=== PATIENT | female | born 1945 | race Caucasian/White ===

== ENCOUNTER 2017-07-06 17:38 | Emergency (ER) | payer MEDICARE, OTHER ==
[~2017-07-06] VITALS: Ht 170.2 cm; Wt 73.0 kg
[~2017-07-06 17:38] MED LIST: ASPI81TA82 PO; ATEN-100 PO; BUPR150T3 PO; CALC500T35 PO; DAPA1TAB2 PO; DRIS50002 PO; GABA300C3 PO; GLIM4 PO; LOSA25 PO; LYRI150C PO; METF500 PO; MIRA25TA PO; PRAV80 PO; ROPI1TAB72 PO
[2017-07-06 17:43] VITALS: BP 161/108; PULSE 80; RESP 18; TEMP 99.1; O2SAT 97
[2017-07-06 17:48] VITALS: BP 161/108; PULSE 75; RESP 18; O2SAT 97
--- NOTE | 2017-07-06 17:49 | PD ---
HPI Chief Complaint: Fall Time Seen by Provider: 17:48 Travel History International Travel<30 days: No Contact w/Intl Traveler<30days: No Traveled to known affect area: No History of Present Illness HPI 71-year-old female presents to the emergency department via EMS with complaint of left hip pain and coccyx pain after tripping on carpet and falling and landing to her left side. Declined the backboard for EMS. Denies hitting her head or loss of consciousness. Denies neck pain Denies anticoagulants therapy. Has history of coccyx pain but says the pain is worse. Denies landing on her butt. Has history of peripheral neuropathy and denies change in paresthesias. Denies chest pain, shortness of breath, abdominal pain, vomiting. Denies encopresis, incontinence, saddle anesthesias. Denies decreased range of motion, decreased strength to bilateral lower extremities. Left hip pain is worse with abduction. Low back pain is worse on palpation. Has not taken any medications to alleviate her symptoms. Rates pain 6/10. Describes as an aching sensation. Worse with movement. Better while at rest. History of hypertension, diabetes mellitus, peripheral neuropathy, restless leg syndrome. Primary care provider is Dr. Gutierrez. Allergies to latex and phenobarbital. Has no medical complaints. No other modifying factors or associated signs and symptoms. PFSH Past Medical History Arthritis: Yes Blood Disorders: No Anxiety: Yes Depression: Yes Cancer: No Cardiovascular Problems: Yes High Cholesterol: Yes Diabetes: Yes Patient Takes Glucophage: Yes Diminished Hearing: No Endocrine: Yes Gastrointestinal Disorders: Yes GERD: Yes Genitourinary: No Hypertension: Yes Immune Disorder: No Implanted Vascular Access Dvce: Yes Musculoskeletal: Yes Neurologic: No Psychiatric: Yes Reproductive: No Respiratory: Yes Sleep Apnea: Yes Tubal Ligation: Yes Past Surgical History Abdominal Surgery: Yes (gastric bypass) Appendectomy: Yes Body Medical Devices: stents in the left leg Cardiac Surgery: Yes (FEM/POP BY PASS- LEFT- 2001) Cholecystectomy: Yes Genitourinary Surgery: No Gynecologic Surgery: Yes (tubaligation hysterectomy) Hysterectomy: Yes Joint Replacement: No Pacemaker: No Thoracic Surgery: Yes (GALLBLADDER) Social History Alcohol Use: No Tobacco Use: No Substance Use: No Allergies-Medications (Allergen,Severity, Reaction): Coded Allergies: latex (Unverified Allergy, Severe, 02/25/17) phenobarbital (Unverified Allergy, Severe, Dizziness, 02/25/17) Reported Meds & Prescriptions Reported Meds & Active Scripts Active Walker/Adult/Folding (Device) 1 Mis Mis Ea .ROUTE DIRECTED Ibuprofen 600 Mg Tab 600 Mg PO Q6H PRN Reported Calcium (Oyster Shell) 500 Mg Tab 500 Mg PO BID Drisdol (Ergocalciferol) 50,000 Unt Cap 50,000 Units PO WEEKLY Aspir-81 (Aspirin) 81 Mg Tab 81 Mg PO HS Lyrica (Pregabalin) 150 Mg Cap 150 Mg PO BID Gabapentin 300 Mg Cap 300 Mg PO DAILY@1200 Myrbetriq (Mirabegron) 25 Mg Tab 25 Mg PO DAILY Atenolol 25 Mg Tab 25 Mg PO DAILY Requip 1 mg (Ropinirole HCl) 1 Mg Tab 2 Mg PO HS Requip 1 mg (Ropinirole HCl) 1 Mg Tab 1 Mg PO BID GIVEN AT 1200 & 1800 Bupropion Hcl Xl (Bupropion HCl) 150 Mg Tab 150 Mg PO DAILY Pravastatin Sodium (Pravastatin Sod) 80 Mg Tab 80 Mg PO HS Losartan Potassium 25 Mg Tab 25 Mg PO DAILY Farxiga (Dapagliflozin Propanediol) 10 Mg Tab 10 Mg PO DAILY Amaryl 4 Mg Tab (Glimepiride) 4 Mg Tab 8 Mg PO DAILYAC Take 30 minutes prior to a meal Glucophage 500 mg (Metformin HCl) 500 Mg Tab 1,000 Mg PO BIDAC Review of Systems Except as stated in HPI: all other systems reviewed are Neg Physical Exam Narrative GENERAL: Well-nourished, well-developed female patient, in no acute distress; afebrile, nontoxic-appearing SKIN: Warm and dry. HEAD: Atraumatic. Normocephalic. EYES: Pupils equal and round. No scleral icterus. No injection or drainage. ENT: Mucosa pink and moist. Airway patent. NECK: Moving freely. No midline tenderness on patient of the cervical spine. Active rotation greater than 45 to the left and right. Trachea midline. CARDIOVASCULAR: Regular rate and rhythm. No murmur appreciated. RESPIRATORY: No accessory muscle use. Lungs sounds clear and equal bilaterally. GASTROINTESTINAL: Abdomen soft, non-tender, nondistended. Positive bowel sounds. No hepato-splenomegaly, or palpable masses. No guarding. BACK: Tenderness on palpation to the coccyx area; without erythema, edema, ecchymosis. No midline tenderness on palpation of the lumbar, thoracic, cervical spine. MUSCULOSKELETAL: Left hip with full range of motion; without erythema, edema, or ecchymosis; with tenderness on abduction; tenderness on palpation to the lateral aspect; no obvious deformity; no leg length discrepancy. Left lower extremity is supple and non-tense with 2+ pedal pulse and sensory intact and without erythema or edema. No obvious deformity. No cyanosis. No edema. NEUROLOGICAL: Awake and alert. Oriented 3. No obvious cranial nerve deficits. Motor grossly within normal limits. Normal speech. PSYCHIATRIC: Appropriate mood and affect; insight and judgment normal. Data Data Last Documented VS Vital Signs Date Time Temp Pulse Resp B/P (MAP) Pulse Ox O2 Delivery O2 Flow Rate FiO2 07/06/17 19:50 80 20 147/79 (101) 96 07/06/17 17:48 Room Air 07/06/17 17:43 99.1 Orders Orders Ibuprofen (Motrin) (07/06/17 18:00) Hip, Uni(Ap&Lat) W Ap Pelvis (07/06/17 17:49) Sacrum And Coccyx (07/06/17 ) Ed Discharge Order (07/06/17 19:12) MDM Medical Decision Making Medical Screen Exam Complete: Yes Emergency Medical Condition: Yes Medical Record Reviewed: Yes Differential Diagnosis fall, Hip contusion, hip fracture, acute exacerbation of chronic coccyx pain, coccyx fracture, coccydynia Narrative Course 71-year-old female with coccyx pain and left hip pain after a mechanical fall. Arrives via EMS. Declined backboard. Coccyx and sacrum x-ray, and left hip with AP pelvis x-ray ordered. Ibuprofen ordered. 1903: Left hip with AP pelvis and coccyx x-ray concluded: Hip and Pelvis X-Ray 07/06/17 1749 Signed Impressions: Service Date/Time: Thursday, July 06, 2017 18:07 - CONCLUSION: No evidence of fracture. Lance Dill MD Sacrum and Coccyx X-Ray 07/06/17 0000 Signed Impressions: Service Date/Time: Thursday, July 06, 2017 18:07 - CONCLUSION: No evidence of fracture. Lance Dill MD X-ray findings discussed with patient. Patient was ambulated prior to discharge and ambulated well. Ibuprofen and walker prescribed for home. Instructed patient to follow up with primary care provider. Patient verbalizes understanding and agreement with treatment plan. Patient is medically cleared and stable for discharge. Discussed reasons to return to the emergency department. Patient agrees with treatment plan. The patients vital signs are stable and the patient is stable for outpatient follow-up and treatment. Patient discharged home, stable and in no acute distress. Diagnosis Primary Impression: Fall Qualified Codes: W19.XXXA - Unspecified fall, initial encounter Additional Impressions: Contusion of left hip Qualified Codes: S70.02XA - Contusion of left hip, initial encounter Coccyx pain Referrals: [facility] Primary Care Physician Patient Instructions: Coccyx Injury (ED), Fall Prevention (ED), General Instructions, Hip Contusion (ED) Additional Instructions: Tylenol or ibuprofen as directed and as needed for pain and inflammation Walker as needed for support Avoid aggravating activity; increase activity as tolerated Follow-up with primary care provider Return to the emergency department immediately with worsening of symptoms Med/Other Pt SpecificInfo: Prescription(s) given Scripts Walker/Adult/Folding (Walker/Adult/Folding) 1 Mis Mis EA .ROUTE DIRECTED, #1 0 Refills Prov: Bonita Garrett 07/06/17 Ibuprofen (Ibuprofen) 600 Mg Tab 600 MG PO Q6H Y for PAIN, #20 TAB 0 Refills Prov: Boniat Garrett 07/06/17 Disposition: 01 DISCHARGE HOME Condition: Stable Bonita Garrett Jul 06, 2017 17:49
[2017-07-06] MEDS ORDERED: IBUPROFEN 600 MG TAB PO ONE (18:00)
--- NOTE | 2017-07-06 18:51 | RADRPT ---
EXAM DATE/TIME: 07/06/2017 18:07 [facility] COMPARISON: No previous studies available for comparison. INDICATIONS : Left flank and low back pain post fall. MEDICAL HISTORY : Cardiovascular disease. SURGICAL HISTORY : Cholecystectomy. Left iliac stent ENCOUNTER: Initial ACUITY: 1 day PAIN SCORE: 8/10 LOCATION: Left flank low back FINDINGS: 3 views of the left upper pelvis. Femoral artery stents are seen on the left. No evidence of fracture . Alignment within normal limits. No joint narrowing. CONCLUSION: No evidence of fracture. Lance Dill MD on July 06, 2017 at 18:48 Board Certified Radiologist. This report was verified electronically.
--- NOTE | 2017-07-06 18:52 | RADRPT ---
EXAM DATE/TIME: 07/06/2017 18:07 [facility] COMPARISON: No previous studies available for comparison. INDICATIONS : Left flank and low back pain post fall. MEDICAL HISTORY : Cardiovascular disease. SURGICAL HISTORY : Cholecystectomy. Left iliac stent ENCOUNTER: Initial ACUITY: 1 day PAIN SCORE: 8/10 LOCATION: Bilateral low back FINDINGS: 3 views of the sacrum. Bone alignment within normal limits. No evidence of fracture. CONCLUSION: No evidence of fracture. Lance Dill MD on July 06, 2017 at 18:50 Board Certified Radiologist. This report was verified electronically.
[2017-07-06] MEDS ORDERED: IBUP-232 PO (19:06)
[2017-07-06] MEDS ORDERED: WALKER/ADULT/FO1 MIS (19:11)
[2017-07-06 19:50] VITALS: BP 147/79
== END 2017-07-06 20:20 | disposition home or self-care (01) ==
LOC: NEPC 17:38
DX: S70.02XA Contusion of left hip, initial encounter (principal); M53.3 Sacrococcygeal disorders, not elsewhere classified; E11.9 Type 2 diabetes mellitus without complications; E78.00 Pure hypercholesterolemia, unspecified; I10 Essential (primary) hypertension; W01.0XXA Fall on same level from slipping, tripping and stumbling without subsequent striking against object, initial encounter; Z79.84 Long term (current) use of oral hypoglycemic drugs
CPT/HCPCS: 72220; 73502; 99283

== ENCOUNTER 2018-02-28 18:03 | Inpatient (IN) ==
[2018-02-28] MEDS ORDERED: Sodium Chlor 0.9% Inj 500 ML IV.SIG ONE (19:21)
[2018-02-28 19:46] LABS: Baso % (Auto) 0.3 % (0.0-2.0); Hematocrit 39.8 % (35.0-46.0); Hemoglobin 13.5 gm/dL (11.6-15.3); Lymph # (Auto) 0.7 th/mm3 (1.0-4.8); Lymph % (Auto) 6.8 % (9.0-44.0); Mean Corpuscular HGB Conc 34.1 % (32.0-36.0); Mean Platelet Volume 8.6 fL (7.0-11.0); Mono # (Auto) 0.7 th/mm3 (0.0-0.9); Mono % (Auto) 6.5 % (0.0-8.0); Neut # (Auto) 8.8 th/mm3 (1.8-7.7); Neut % (Auto) 86.4 % (16.0-70.0); Platelet Count 224 th/mm3 (150-450); Red Blood Count 4.37 mil/mm3 (4.00-5.30); Red Cell Distribution Width 13.3 % (11.6-17.2); White Blood Count 10.2 th/mm3 (4.0-11.0)
[2018-02-28 19:56] LABS: Prothrombin Time 10.3 sec (9.8-11.6)
[2018-02-28 19:57] LABS: Albumin 3.3 g/dL (3.4-5.0); Anion Gap 13 meq/L (5-15); Aspartate Aminotransferase 24 U/L (15-37); Blood Urea Nitrogen 17 mg/dL (7-18); Calcium 8.8 mg/dL (8.5-10.1); Carbon Dioxide 25.5 meq/L (21.0-32.0); Chloride 94 meq/L (98-107); Glomerular Filtration Rate 37 mL/min (>89); Glucose,Random 188 mg/dL (74-106); Potassium 4.3 meq/L (3.5-5.1); Sodium 132 meq/L (136-145)
--- NOTE | 2018-02-28 20:02 | XR ---
EXAM DATE: 02/28/2018 7:49 PM EDT AGE/SEX: 72 years / Female INDICATIONS: Fever. Back pain. CLINICAL DATA: This is the patient's initial encounter. Patient reports that signs and symptoms have been present for 1 day and indicates a pain score of 4/10. MEDICAL/SURGICAL HISTORY: . Cardiovascular disease. . Cholecystectomy. Left iliac stent COMPARISON: [facility] [place] SING[place] AP, 10/20/2015. . FINDINGS: A single AP view of the chest demonstrates the lungs to be symmetrically aerated without evidence of mass, infiltrate or effusion. The cardiomediastinal contours are unremarkable. Osseous structures a re intact. CONCLUSION: Lungs are clear. Electronically signed by: Nelson Hernandez MD 02/28/2018 8:00 PM EDT
[2018-02-28 20:03] LABS: Alanine Aminotransferase 21 U/L (10-53); Alkaline Phosphatase 72 U/L (45-117); Total Protein 7.8 g/dL (6.4-8.2)
--- NOTE | 2018-02-28 20:37 | CT ---
EXAM DATE: 02/28/2018 8:24 PM EDT AGE/SEX: 72 years / Female INDICATIONS: Altered mental status. Found on floor. CLINICAL DATA: This is the patient's initial encounter. Patient reports that signs and symptoms have been present for 1 day and indicates a pain score of 0/10. MEDICAL/SURGICAL HISTORY: Hypertension. Deep venous thrombosis. None. RADIATION DOSE: 64.48 CTDI (mGy) ;Tabletop exam COMPARISON: [facility] [place] 10/20/2015. . TECHNIQUE: CT of the head without contrast. Using automated exposure control and adjustment of the mA and/or kV according to patient size, radiation dose was kept as low as reasonably achievable to ob tain optimal diagnostic quality images. DICOM format image data is available electronically for revi ew and comparison. FINDINGS: Cerebrum: The ventricles are normal for age. No evidence of midline shift, mass lesion, hemorrhage or acute infarction. No extraaxial fluid collections are seen. Posterior Fossa: The cerebellum and brainstem are intact. The 4th ventricle is midline. The cerebe llopontine angle is unremarkable. Extracranial: The visualized portion of the orbits is intact. Skull: The calvaria is intact. No evidence of skull fracture. CONCLUSION: 1. No acute findings in the brain. . Electronically signed by: Nelson Hernandez MD 02/28/2018 8:36 PM EDT
[2018-02-28 20:38] LABS: Bilirubin,Urine Negative (Negative); Clarity,Urine Hazy (Clear); Color,Urine Yellow (Yellw/Straw); Glucose,Urine (UA) Negative (Negative); Leukocyte Esterase,Urine Negative (Negative); Nitrite,Urine Negative (Negative); Specific Gravity,Urine 1.013 (1.002-1.035); Squamous Epithelial Cell,Urine 3 /hpf (0-5)
--- NOTE | 2018-02-28 21:00 | ED ---
HPI General Chief complaint: Fall Stated complaint: neck,back pain Time Seen by Provider: 02/28/18 19:06 History of Present Illness HPI narrative: Patient presents to the emergency department with her daughter. Daughter states that her mother lives alone and she went by the house to check on her and found her in the ground in the hallway on the floor. Patient states she cannot recall how she got on the floor but she thinks she slipped and fell. She is not on any blood thinners. Event happened approximately 430 5:00 this evening. Patient complains complains of right flank pain radiating to the suprapubic area, 5 out of 10, intermittent, aggravated by exertion, alleviated by rest. Denies dysuria hematuria but she does have a history of UTIs. She denies fever, nausea, vomiting, diarrhea, chest pain, shortness of breath, cough , headache, vision change, numbness, tingling, or chills. Related Data Home Medications Medication Instructions Recorded Confirmed escitalopram oxalate [Lexapro] 20 mg PO DAILY 02/28/18 02/28/18 losartan 25 mg PO DAILY 02/28/18 02/28/18 metformin 1,000 mg PO BID 02/28/18 02/28/18 metoprolol succinate 25 mg PO DAILY 02/28/18 02/28/18 nortriptyline 50 mg PO HS 02/28/18 02/28/18 omeprazole 40 mg PO DAILY 02/28/18 02/28/18 pravastatin 40 mg PO DAILY 02/28/18 02/28/18 pregabalin [Lyrica] 25 mg PO TID 02/28/18 02/28/18 ropinirole 0.25 mg PO 5 TIMES A DAY 02/28/18 02/28/18 sertraline 50 mg PO DAILY 02/28/18 02/28/18 trazodone 50 mg PO DAILY 02/28/18 02/28/18 Allergies Allergy/AdvReac Type Severity Reaction Status Date / Time latex Allergy Severe Rash Verified 02/28/18 19:51 phenobarbital Allergy Severe Dizziness Verified 02/28/18 19:51 Review of Systems ROS: all other systems reviewed are negative [facility] Medical History Medical History DVT (deep venous thrombosis) (Acute) HTN (hypertension) (Acute) Surgical history unknown (Acute) UTI (urinary tract infection) (Acute) Social History Social History Substance History: No History of Abuse Second Hand Smoke Exposure: No Smoking Status: Never smoker How Often Do You Have a Drink Containing Alcohol: Monthly or less Recent Travel in [facility] within the Last 8 Weeks: No Recent Out of Country Travel within the Last 8 Weeks: No Immunization History Tetanus Immunization: >5 Years Hx Influenza Vaccine This Season: No Exam Narrative Exam Narrative: GENERAL: No acute distress. SKIN: Focused skin assessment warm/dry. HEAD: Atraumatic. Normocephalic. EYES: Pupils equal and round. No scleral icterus. No injection or drainage. ENT: No nasal bleeding or discharge. Mucous membranes pink and moist. NECK: Trachea midline. No JVD. CARDIOVASCULAR: Tachycardic. + murmur appreciated. RESPIRATORY: No accessory muscle use. Clear to auscultation. Breath sounds equal bilaterally. GASTROINTESTINAL: Abdomen soft, left lower quadrant tenderness, nondistended. Right CVA tenderness. MUSCULOSKELETAL: No obvious deformities. No clubbing. No cyanosis. No edema. NEUROLOGICAL: Awake and alert. No obvious cranial nerve deficits. Motor grossly within normal limits. Normal speech. PSYCHIATRIC: Appropriate mood and affect; insight and judgment normal. Course Initial Documented Vital Signs Temperature 102.7 F H 02/28/18 18:37 Pulse Rate 112 H 02/28/18 18:37 Respiratory Rate 20 02/28/18 18:37 Blood Pressure 127/58 L 02/28/18 18:37 Pulse Oximetry 96 02/28/18 18:37 Last Documented Vital Signs Temperature 99.4 F 02/28/18 19:11 Pulse Rate 103 H 02/28/18 23:58 Respiratory Rate 16 02/28/18 23:50 Blood Pressure 169/71 H 02/28/18 23:50 Pulse Oximetry 93 L 02/28/18 23:50 Medical Decision Making [facility] Narrative Medical decision making narrative: Patient presents to the emergency department status post fall in complaining of right flank pain. Patient placed on machine stamper, continuous pulse ox, and IV access obtained. CT scans, chest x-ray, EKG, and labs ordered. Patient also given 500 cc IV normal saline bolus. Of note patient was febrile in triage; however, she was not febrile once in the emergency department. Labs: Elevated creatinine and glucose. CT: CONCLUSION:1. Obstructive uropathy on the right side due to a 6 mm calcified stone in the proximal right ureter. Chest x-ray and head CT no acute findings. 2299: Admit MD at bedside. Daughter states patient's mental status and speech have been changing since about 7/7:30 PM. Stroke scale score 10. Stroke alert neurologist called. Family advised that she had slurred speech when she found her; tehrefore, out of window for tPA. Per Dr Silva recommendation, will get MRI brain without, MRA head and neck, admit MD in ER and will order it STAT and f/u results. 2135: Dr Varela: Cefepime 2 grams IV q 12hrs, place formal consult, will see how she does overnight Medical Screen Exam Complete: Yes Emergency Medical Condition: Yes Differential Diagnosis Differential Diagnosis: Pyelonephritis, sepsis, ICH, CVA, TIA, diverticulitis Lab Data Result diagrams: 02/28/18 19:30 02/28/18 19:30 Lab Results 02/28/18 02/28/18 02/28/18 Range/Units 19:30 19:30 19:30 WBC (4.0-11.0) th/mm3 RBC (4.00-5.30) mil/mm3 Hgb (11.6-15.3) gm/dL Hct (35.0-46.0) % MCV (80.0-100.0) fL MCH (27.0-34.0) pg MCHC (32.0-36.0) % RDW (11.6-17.2) % Plt Count (150-450) th/mm3 MPV (7.0-11.0) fL Neut % (Auto) (16.0-70.0) % Lymph % (Auto) (9.0-44.0) % [place] % (Auto) (0.0-8.0) % Eos % (Auto) (0.0-4.0) % Baso % (Auto) (0.0-2.0) % Neut # (Auto) (1.8-7.7) th/mm3 Lymph # (Auto) (1.0-4.8) th/mm3 [place] # (Auto) (0.0-0.9) th/mm3 Eos # (Auto) (0.0-0.4) th/mm3 Baso # (Auto) (0.0-0.2) th/mm3 WBC Differential Differential Comment PT 10.3 (9.8-11.6) sec INR 1.0 Ratio APTT (24.3-30.1) sec Sodium 132 L (136-145) meq/L Potassium 4.3 (3.5-5.1) meq/L Chloride 94 L (98-107) meq/L Carbon Dioxide 25.5 (21.0-32.0) meq/L Anion Gap 13 (5-15) meq/L BUN 17 (7-18) mg/dL Creatinine 1.40 H (0.50-1.00) mg/dL Estimated GFR 37 L (>89) mL/min Random Glucose 188 H (74-106) mg/dL Lactic Acid 1.9 (0.4-2.0) mmol/L Calcium 8.8 (8.5-10.1) mg/dL Magnesium (1.5-2.5) mg/dL Total Bilirubin 0.6 (0.2-1.0) mg/dL AST 24 (15-37) U/L ALT 21 (10-53) U/L Alkaline Phosphatase 72 (45-117) U/L Total Creatine Kinase (26-192) U/L CK-MB (CK-2) (0.5-3.6) ng/mL Troponin I (0.02-0.05) ng/mL Total Protein 7.8 (6.4-8.2) g/dL Albumin 3.3 L (3.4-5.0) g/dL Urine Color (Yellw/Straw) Urine Clarity (Clear) Urine pH (5.0-8.5) Ur Specific [place] (1.002-1.035) Urine Protein (Neg-Trace) mg/dL Urine Glucose (UA) (Negative) mg/dL Urine Ketones (Negative) mg/dL Urine Occult Blood (Negative) Urine Nitrate (Negative) Urine Bilirubin (Negative) Urine Urobilinogen (Less than 2) mg/dL Ur Leukocyte Esterase (Negative) Urine RBC (0-3) /hpf Urine WBC (0-5) /hpf Ur Squamous Epith Cells (0-5) /hpf Micro UA Comment Urine Culture Comments 02/28/18 02/28/18 02/28/18 Range/Units 19:30 19:30 19:30 WBC 10.2 (4.0-11.0) th/mm3 RBC 4.37 (4.00-5.30) mil/mm3 Hgb 13.5 (11.6-15.3) gm/dL Hct 39.8 (35.0-46.0) % MCV 91.0 (80.0-100.0) fL MCH 31.0 (27.0-34.0) pg MCHC 34.1 (32.0-36.0) % RDW 13.3 (11.6-17.2) % Plt Count 224 (150-450) th/mm3 MPV 8.6 (7.0-11.0) fL Neut % (Auto) 86.4 H (16.0-70.0) % Lymph % (Auto) 6.8 L (9.0-44.0) % [place] % (Auto) 6.5 (0.0-8.0) % Eos % (Auto) 0.0 (0.0-4.0) % Baso % (Auto) 0.3 (0.0-2.0) % Neut # (Auto) 8.8 H (1.8-7.7) th/mm3 Lymph # (Auto) 0.7 L (1.0-4.8) th/mm3 [place] # (Auto) 0.7 (0.0-0.9) th/mm3 Eos # (Auto) 0.0 (0.0-0.4) th/mm3 Baso # (Auto) 0.0 (0.0-0.2) th/mm3 WBC Differential . Differential Comment Auto diff final PT (9.8-11.6) sec INR Ratio APTT 27.3 (24.3-30.1) sec Sodium (136-145) meq/L Potassium (3.5-5.1) meq/L Chloride (98-107) meq/L Carbon Dioxide (21.0-32.0) meq/L Anion Gap (5-15) meq/L BUN (7-18) mg/dL Creatinine (0.50-1.00) mg/dL Estimated GFR (>89) mL/min Random Glucose (74-106) mg/dL Lactic Acid (0.4-2.0) mmol/L Calcium (8.5-10.1) mg/dL Magnesium 1.8 (1.5-2.5) mg/dL Total Bilirubin (0.2-1.0) mg/dL AST (15-37) U/L ALT (10-53) U/L Alkaline Phosphatase (45-117) U/L Total Creatine Kinase (26-192) U/L CK-MB (CK-2) (0.5-3.6) ng/mL Troponin I (0.02-0.05) ng/mL Total Protein (6.4-8.2) g/dL Albumin (3.4-5.0) g/dL Urine Color (Yellw/Straw) Urine Clarity (Clear) Urine pH (5.0-8.5) Ur Specific [place] (1.002-1.035) Urine Protein (Neg-Trace) mg/dL Urine Glucose (UA) (Negative) mg/dL Urine Ketones (Negative) mg/dL Urine Occult Blood (Negative) Urine Nitrate (Negative) Urine Bilirubin (Negative) Urine Urobilinogen (Less than 2) mg/dL Ur Leukocyte Esterase (Negative) Urine RBC (0-3) /hpf Urine WBC (0-5) /hpf Ur Squamous Epith Cells (0-5) /hpf Micro UA Comment Urine Culture Comments 02/28/18 02/28/18 02/28/18 Range/Units 19:30 19:30 20:05 WBC (4.0-11.0) th/mm3 RBC (4.00-5.30) mil/mm3 Hgb (11.6-15.3) gm/dL Hct (35.0-46.0) % MCV (80.0-100.0) fL MCH (27.0-34.0) pg MCHC (32.0-36.0) % RDW (11.6-17.2) % Plt Count (150-450) th/mm3 MPV (7.0-11.0) fL Neut % (Auto) (16.0-70.0) % Lymph % (Auto) (9.0-44.0) % [place] % (Auto) (0.0-8.0) % Eos % (Auto) (0.0-4.0) % Baso % (Auto) (0.0-2.0) % Neut # (Auto) (1.8-7.7) th/mm3 Lymph # (Auto) (1.0-4.8) th/mm3 [place] # (Auto) (0.0-0.9) th/mm3 Eos # (Auto) (0.0-0.4) th/mm3 Baso # (Auto) (0.0-0.2) th/mm3 WBC Differential Differential Comment PT (9.8-11.6) sec INR Ratio APTT (24.3-30.1) sec Sodium (136-145) meq/L Potassium (3.5-5.1) meq/L Chloride (98-107) meq/L Carbon Dioxide (21.0-32.0) meq/L Anion Gap (5-15) meq/L BUN (7-18) mg/dL Creatinine (0.50-1.00) mg/dL Estimated GFR (>89) mL/min Random Glucose (74-106) mg/dL Lactic Acid (0.4-2.0) mmol/L Calcium (8.5-10.1) mg/dL Magnesium (1.5-2.5) mg/dL Total Bilirubin (0.2-1.0) mg/dL AST (15-37) U/L ALT (10-53) U/L Alkaline Phosphatase (45-117) U/L Total Creatine Kinase 163 (26-192) U/L CK-MB (CK-2) Less than 1.0 (0.5-3.6) ng/mL Troponin I Less than 0.02 L (0.02-0.05) ng/mL Total Protein (6.4-8.2) g/dL Albumin (3.4-5.0) g/dL Urine Color Yellow (Yellw/Straw) Urine Clarity Hazy H (Clear) Urine pH 6.0 (5.0-8.5) Ur Specific [place] 1.013 (1.002-1.035) Urine Protein 30 H (Neg-Trace) mg/dL Urine Glucose (UA) Negative (Negative) mg/dL Urine Ketones 20 (Negative) mg/dL Urine Occult Blood Negative (Negative) Urine Nitrate Negative (Negative) Urine Bilirubin Negative (Negative) Urine Urobilinogen 2.0 H (Less than 2) mg/dL Ur Leukocyte Esterase Negative (Negative) Urine RBC 1 (0-3) /hpf Urine WBC 4 (0-5) /hpf Ur Squamous Epith Cells 3 (0-5) /hpf Micro UA Comment Culture not ind Urine Culture Comments Culture not ind Imaging Data Radiologist's impression: Chest X-Ray 02/28/18 19:20 CONCLUSION: Lungs are clear. Head CT 02/28/18 19:20 CONCLUSION: 1. No acute findings in the brain. . Abdomen/Pelvis CT 02/28/18 19:21 CONCLUSION: 1. Obstructive uropathy on the right side due to a 6 mm calcified stone in the proximal right ureter. Cervical Spine CT 02/28/18 21:00 CONCLUSION: 1. No acute bony abnormalities seen. 2. Wroe-tu-hfruasul disc bulge and osteophytic ridging at the C4-C5 level. 3. Mild central disc protrusion at the C6-C7 level. 4. Scattered facet and uncovertebral hypertrophy. Head MRI 03/01/18 00:00 CONCLUSION: 1. No acute abnormality is seen. 2. Scattered areas of demyelination likely from small vessel ischemic change in the right. Neck MRA 03/01/18 00:00 CONCLUSION: Mild focal stenosis at the origin of the left internal carotid artery. Percent stenosis is calculated using the diameter of the stenotic region over the diameter of the normal distal internal carotid artery ECG Data Attestation: I personally reviewed and interpreted this ECG as follows: (Sinus tachycardia at 101, left axis deviation, LVH, ST depression in lead I, 2, aVL; Q -wave in lead I and aVL and V2) Discharge Plan Discharge Disposition Patient Disposition: 30 Still Patient Discharge Condition Condition: Stable Discharge Details Diagnosis: Kidney stone, Brain TIA Physicians Team ED Provider: Rena Be Primary Care Provider: UNKNOWN, Attending Provider: Karon Mckeon Other Providers: Erick Silva ; Jean-Paul Varela Discharge Interventions Interventions: Vital Signs Last Done: 02/28/18 19:11 Status ED Status: Admitted Patient
--- NOTE | 2018-02-28 21:06 | CT ---
EXAM DATE: 02/28/2018 8:26 PM EDT AGE/SEX: 72 years / Female INDICATIONS: Abdomen pain. Found on floor. CLINICAL DATA: This is the patient's initial encounter. Patient reports that signs and symptoms have been present for 1 day and indicates a pain score of 5/10. MEDICAL/SURGICAL HISTORY: Hypertension. Deep venous thrombosis. None. RADIATION DOSE: 12.93 CTDI (mGy) COMPARISON: No prior exams available for comparison. TECHNIQUE: Multiple contiguous axial images were obtained through the abdomen. Images were obtained using multiple row detector helical technique. Using automated exposure control and adjustment of the mA and/or kV according to patient size, radiation dose was kept as low as reasonably achievable to o btain optimal diagnostic quality images. DICOM format image data is available electronically for rev iew and comparison. FINDINGS: Lower Lungs: The visualized lower lungs are clear. Liver: The liver has a homogeneous density without space-occupying lesion for noncontrast technique. There is no dilation of the biliary tree. Cholecystectomy. Spleen: Homogeneous density without enlargement. Pancreas: Unremarkable without mass or calcification. Right kidney/ureter: Moderate hydronephrosis and dilation of the right ureter down to a 6 mm obstruct ing stone. No additional calcified stones in the collecting system of the right kidney. There is stra ndy density in the perinephric fat on the right side suggesting possible sinus extravasation. Left kidney/ureter: Normal in size and shape. No evidence of mass or hydronephrosis. Adrenal Glands: Unremarkable. Aorta: The aorta and proximal iliac vessels are grossly unremarkable without aneurysmal dilation. Bowel/Mesentery: Anastomosis suture about the stomach. No dilated loops of small or large bowel. No evidence of free fluid. Abdominal Wall: Intact. Retroperitoneum: No evidence of adenopathy in the retrocrural, para-aortic, or deep pelvic regions. Bladder: Contours are smooth. Reproductive Organs: No abnormal masses or calcifications seen. Inguinal: The inguinal region is unremarkable without evidence of adenopathy. Left iliac stent. Bony Structures: Unremarkable. CONCLUSION: 1. Obstructive uropathy on the right side due to a 6 mm calcified stone in the proximal right ureter . Electronically signed by: Nelson Hernandez MD 02/28/2018 9:04 PM EDT
[2018-02-28] MEDS: Sod Chloride 0.9% Inj 1,000 ML IV.CONT SCH (22:10)
[2018-02-28] MEDS ORDERED: Dextrose 50% in Water 50 ML Vial IV.PUSH PRN (22:26)
[2018-02-28] MEDS ORDERED: Bisacodyl 10 MG Supp RECTAL PRN (22:28)
[2018-02-28] MEDS ORDERED: Enoxaparin Inj 40 MG/0.4 ML Syringe SQ SCH (22:30)
[2018-02-28] MEDS ORDERED: Naloxone Inj 0.4 MG/ML Vial IV.PUSH PRN (22:33)
[2018-02-28 23:23] LABS: Creatine Kinase 163 U/L (26-192)
--- NOTE | 2018-02-28 23:37 | P.HPFP ---
History of Present Illness Primary Care Physician: Rocío History of Present Illness: This is a pleasant 72 yo female who presented to the ER tonight after her daughter found her on the groun in the hallway of her home. History was obtained from pt's daughter at bedside and from the ER physician. The patient is somewhat confused and unable to provide history. Patient was last seen normal yesterday by her daughter. At her baseline state she ambulates independently, with unsteady gait, and is normally alert and oriented, though of late has shown some signs of memory issues/possible early dementia. When daughter arrived to the house this evening around 6:30 p.m she found her laying in the hallway. She reports her speech was somewhat thick/abnormal, which she attributed to a dry mouth. Patient was confused and unable to report how she had fallen. In the ER she initially had fever of 102, however stable blood pressure. CBC unremarkable, BMP showing Cr 1.4. Head CT was negative. Abdominal CT did show 6 mm right proximal ureter stone with obstructive uropathy. EKG showed sinus rhtyhm rate 101, borderline r BBB, no ischemic changes. Troponin I negative. Patient denies any pain. While in the ER pietro reports she has gotten increasingly confused, and that her speech has gotten more abnormal, and that she seems to be having difficulty finding words. NIH stroke scale was 10. A stat MRI brain and MRA neck has been ordered. - Diagnosis (1) Altered mental status (2) Ureterolithiasis (3) DAQUAN (acute kidney injury) (4) Fall Inpatient Certification: I certify that the inpatient services were ordered in accordance with Medicare regulations governing the order. This includes certification that hospital inpatient services are reasonable and necessary and in the case of services not specified as inpatient-only under 42 CFR 419.22(n), that they are appropriately provided as inpatient services in accordance to with the 2-midnight benchmark under 43 CFR 412.3(e) Estimated Total Length of Stay (Days): 3 Plans for Post Hospital Care: Home health [facility] - History History Provided By: Patient, Family Member - Medical History Medical History: Medical History (Last Updated 02/28/18 @ 19:09 by Edwin Gómez) DVT (deep venous thrombosis) HTN (hypertension) Surgical history unknown UTI (urinary tract infection) - Tobacco History Second Hand Smoke Exposure: No Smoking Status: Never smoker - Alcohol History How Often Do You Have a Drink Containing Alcohol: Monthly or less - Substance Use History Substance History: No History of Abuse - Travel History Recent Travel in the [place] Within the Last 8 Weeks: No Recent Travel Out of the Country Within the Last 8 Weeks: No - Immunization History Tetanus Immunization: >5 Years Hx Influenza Vaccine This Season: No Medications and Allergies Active Medications: Active Medications Acetaminophen (Tylenol) 650 mg PO Q4H PRN PRN Reason: Temp > 100.4 Hydrocodone Bitart/Acetaminophen ([place] 7.5/325) 1 tab PO Q4H PRN PRN Reason: PAIN SCALE 6 TO 10 Hydrocodone Bitart/Acetaminophen ([place] 5/325) 1 tab PO Q4H PRN PRN Reason: PAIN SCALE 3 TO 5 Al Hydroxide/Mg Hydroxide (Milk Of Magnesia Liq) 30 ml PO Q12H PRN PRN Reason: Mild Constipation Aspirin (Aspirin Chew) 81 mg PO DAILY [facility] Bisacodyl (Dulcolax Supp) 10 mg RECTAL DAILY PRN PRN Reason: SEVERE CONSITIPATION Dextrose (D50w Vial) 50 ml IV.PUSH UNSCH PRN PRN Reason: PER HYPOGLYCEMIA PROTOCOL Enalaprilat (Vasotec Inj) 1.25 mg IV.PUSH Q4H PRN PRN Reason: For SBP > 220 or DBP > 120 Enoxaparin Sodium (Lovenox Inj) 40 mg SQ Q24H [facility] Last Admin: 02/28/18 23:17 Dose: 40 mg Escitalopram Oxalate (Lexapro) 20 mg PO DAILY [facility] Glucagon (Glucagon Inj) 1 mg OTHER PRN PRN PRN Reason: for Hypoglycemia Protocol Sodium Chloride (Ns Inj) 1,000 mls @ 84 mls/hr IV.CONT .[id number] [facility] Last Admin: 02/28/18 22:10 Dose: 84 mls/hr Cefepime HCl 2,000 mg/ Sodium (Chloride) 100 mls @ 200 mls/hr IV.SIG Q12H [facility] Insulin Human Regular (Novolin R Correctional Sugar Inj) 0 units SQ ACHS [facility]; Protocol Lactulose (Lactulose Liq) 30 ml PO DAILY PRN PRN Reason: SEVERE CONSITIPATION Naloxone HCl (Narcan Inj) 0.4 mg IV.PUSH UNSCH PRN PRN Reason: SEE LABEL COMMENTS Ondansetron HCl (Zofran Inj) 4 mg IV.PUSH Q6H PRN PRN Reason: NAUSEA OR VOMITING Pantoprazole Sodium (Protonix) 40 mg PO DAILY [facility] Pravastatin Sodium (Pravachol) 40 mg PO DAILY [facility] Pregabalin (Lyrica) 25 mg PO TID [facility] Sennosides (Senokot) 17.2 mg PO Q12H PRN PRN Reason: Moderate Constipation Sodium Chloride (Ns Flush) 2 ml IV.FLUSH BID [facility] Sodium Chloride (Ns Flush) 2 ml IV.FLUSH PRN PRN PRN Reason: FLUSH AFTER USING IV ACCESS Allergies Allergy/AdvReac Type Severity Reaction Status Date / Time latex Allergy Severe Rash Verified 02/28/18 19:51 phenobarbital Allergy Severe Dizziness Verified 02/28/18 19:51 Home Medications Medication Instructions Recorded Confirmed Type escitalopram oxalate [Lexapro] 20 mg PO DAILY 02/28/18 02/28/18 History losartan 25 mg PO DAILY 02/28/18 02/28/18 History metformin 1,000 mg PO BID 02/28/18 02/28/18 History metoprolol succinate 25 mg PO DAILY 02/28/18 02/28/18 History nortriptyline 50 mg PO HS 02/28/18 02/28/18 History omeprazole 40 mg PO DAILY 02/28/18 02/28/18 History pravastatin 40 mg PO DAILY 02/28/18 02/28/18 History pregabalin [Lyrica] 25 mg PO TID 02/28/18 02/28/18 History ropinirole 0.25 mg PO 5 TIMES A DAY 02/28/18 02/28/18 History sertraline 50 mg PO DAILY 02/28/18 02/28/18 History trazodone 50 mg PO DAILY 02/28/18 02/28/18 History Exam Vital signs: Vital Signs 02/28/18 18:37 02/28/18 19:11 Temperature 102.7 F H 99.4 F Pulse Rate 112 H 113 H Respiratory Rate 20 18 Blood Pressure 127/58 L 129/59 L Pulse Oximetry 96 94 L Intake & Output 02/28/18 02/28/18 03/01/18 06:59 18:59 06:59 Weight 73.482 kg Narrative: Gen: Pleasant female, petite and appears somewhat frail for age, in NAD. Neurological: alert, oriented to self but not date or place. Able to name the president of the [place] When asked the name of the hospital, patient begins to sing a song in Indonesian. She moves all extremities, with equal strength bilaterally. Has some difficulty following commands due to confusion. Sensation to light touch and pinprick intact to face and upper extremities, she is unable to distinguish b/l versus unilateral touch, heel to ramos tracking is diminished on the right, but diminished in lower extremities. Face is symmetric. CN 2-12 intact. No slurred speech, reads appropriately from NIH stroke scale, finger nose pointing is difficult to obtain as she does not follow commands well. Skin: intact, warm and dry. HEENT: EOMI, mucous membranes somewhat dry, no scleral icterus. Neck: supple, no JVD. CV: RRR without murmurs, dorsalis pedis pulses strong and equal. Lungs: normal resp effort, CTAB. Abd: soft and nontender to palpation. Extremities: no cyanosis or edema. Results - Labs Result diagrams: 02/28/18 19:30 02/28/18 19:30 Abnormal lab results 02/28/18 02/28/18 02/28/18 Range/Units 19:30 19:30 20:05 Neut % (Auto) 86.4 H (16.0-70.0) % Lymph % (Auto) 6.8 L (9.0-44.0) % Neut # (Auto) 8.8 H (1.8-7.7) th/mm3 Lymph # (Auto) 0.7 L (1.0-4.8) th/mm3 Sodium 132 L (136-145) meq/L Chloride 94 L (98-107) meq/L Creatinine 1.40 H (0.50-1.00) mg/dL Estimated GFR 37 L (>89) mL/min Random Glucose 188 H (74-106) mg/dL Albumin 3.3 L (3.4-5.0) g/dL Urine Clarity Hazy H (Clear) Urine Protein 30 H (Neg-Trace) mg/dL Urine Urobilinogen 2.0 H (Less than 2) mg/dL Short CBC 02/28/18 Range/Units 19:30 WBC 10.2 (4.0-11.0) th/mm3 Hgb 13.5 (11.6-15.3) gm/dL Hct 39.8 (35.0-46.0) % Plt Count 224 (150-450) th/mm3 BMP 02/28/18 19:30 Sodium 132 L Potassium 4.3 Chloride 94 L Carbon Dioxide 25.5 BUN 17 Creatinine 1.40 H Calcium 8.8 Liver Function 02/28/18 Range/Units 19:30 Total Bilirubin 0.6 (0.2-1.0) mg/dL AST 24 (15-37) U/L ALT 21 (10-53) U/L Alkaline Phosphatase 72 (45-117) U/L Albumin 3.3 L (3.4-5.0) g/dL Urine 02/28/18 Range/Units 20:05 Urine Color Yellow (Yellw/Straw) Urine Clarity Hazy H (Clear) Urine pH 6.0 (5.0-8.5) Ur Specific [place] 1.013 (1.002-1.035) Urine Protein 30 H (Neg-Trace) mg/dL Urine Glucose (UA) Negative (Negative) mg/dL - Imaging Impressions Chest X-Ray 02/28/18 19:20 CONCLUSION: Lungs are clear. Head CT 02/28/18 19:20 CONCLUSION: 1. No acute findings in the brain. . Abdomen/Pelvis CT 02/28/18 19:21 CONCLUSION: 1. Obstructive uropathy on the right side due to a 6 mm calcified stone in the proximal right ureter. Caprini VTE Risk Assessment Caprini VTE Risk Assessment: Moderate/High Risk (score >= 2) Caprini Risk Assessment Model: Point Value = 1 Point Value = 2 Point Value = 3 Point Value = 5 Age 41-60 Minor surgery BMI > 25 kg/m2 Swollen legs Varicose veins or History of unexplained or recurrent spontaneous Oral contraceptives or hormone replacement Sepsis (< 1 month) Serious lung disease, including pneumonia (< 1 month) Abnormal pulmonary function Acute myocardial infarction Congestive heart failure (< 1 month) History of inflammatory bowel disease Medical patient at bed rest Age 61-74 Arthroscopic surgery Major open surgery (> 45 min) Laparoscopic surgery (> 45 min) Malignancy Confined to bed (> 72 hours) Immobilizing plaster cast Central venous access Age >= 75 History of VTE Family history of VTE Factor V Leiden Prothrombin [id number] Lupus anticoagulant Anticardiolipin antibodies Elevated serum homocysteine Heparin-induced thrombocytopenia Other congenital or acquired thrombophilia Stroke (< 1 month) Elective arthroplasty Hip, pelvis, or leg fracture Acute spinal cord injury (< 1 month) Prophylaxis Regimen: Total Risk Factor Score Risk Level Prophylaxis Regimen 0-1 Low Early ambulation 2 Moderate Order ONE of the following: *Sequential Compression Device (SCD) *Heparin 5000 units SQ BID 3-4 Higher Order ONE of the following medications: *Heparin 5000 units SQ TID *Enoxaparin/Lovenox 40 mg SQ daily (WT < 150 kg, CrCl > 30 mL/min) *Enoxaparin/Lovenox 30 mg SQ daily (WT < 150 kg, CrCl > 10-29 mL/min) *Enoxaparin/Lovenox 30 mg SQ BID (WT < 150 kg, CrCl > 30 mL/min) AND/OR *Sequential Compression Device (SCD) 5 or more Highest Order ONE of the following medications: *Heparin 5000 units SQ TID (Preferred with Epidurals) *Enoxaparin/Lovenox 40 mg SQ daily (WT < 150 kg, CrCl > 30 mL/min) *Enoxaparin/Lovenox 30 mg SQ daily (WT < 150 kg, CrCl > 10-29 mL/min) *Enoxaparin/Lovenox 30 mg SQ BID (WT < 150 kg, CrCl > 30 mL/min) AND *Sequential Compression Device (SCD) Assessment and Plan - Assessment (1) Altered mental status Code(s): R41.82 - Altered mental status, unspecified Status: Acute (2) Ureterolithiasis Code(s): N20.1 - Calculus of ureter Status: Acute Plan: Admit to intermediate care. AMS - speech disturbance - concern for CVA vs metabolic encephalopathy. Symptoms onset not known - she was found on the floor at home. Daughter reports of late there has been concern for early dementia. Stat MRI brain, with MRA neck. HOB flat. telemetry, echo. PT/OT/ST Asa 81 mg daily. Discussed with ED physician, who also discussed with Dr. Silva. IV fluids for hydration. Fall at home, possible syncope. Telemetry, echo. Ureterolithiasis. Urology consulted. Patient does not have any pain. Fever. IV fluids, IV cefepime. Blood cultures pending. HTN - permissive for now. vasotec prn per stroke guidelines. DM with peripheral neuropathy - hold metformin. SSI with accuchecks. Cont lyrica. (3) DAQUAN (acute kidney injury) Code(s): N17.9 - Acute kidney failure, unspecified Status: Acute (4) Fall Code(s): W19.XXXA - Unspecified fall, initial encounter Status: Acute
--- NOTE | 2018-03-01 | CT ---
EXAM DATE: 02/28/2018 11:48 PM EDT AGE/SEX: 72 years / Female INDICATIONS: Found on floor. Neck pain. CLINICAL DATA: This is the patient's initial encounter. Patient reports that signs and symptoms have been present for 1 day and indicates a pain score of 5/10. MEDICAL/SURGICAL HISTORY: Hypertension. Deep venous thrombosis. None. RADIATION DOSE: 23.00 CTDI (mGy) COMPARISON: No prior exams available for comparison. TECHNIQUE: Contiguous axial images were obtained using helical multirow detector technique. The vol umetric data was post-processed with multiplanar reconstruction in oblique axial, sagittal, and coron al planes. Using automated exposure control and adjustment of the mA and/or kV according to patient s ize, radiation dose was kept as low as reasonably achievable to obtain optimal diagnostic quality silva ges. DICOM format image data is available electronically for review and comparison. FINDINGS: Vertebrae: Normal vertebral body height. Alignment: Normal. No subluxation. C2-3: The bony spinal canal is normal in size. No evidence of disc bulge or herniation. The neural foramina are bilaterally patent. There is facet hypertrophy. C3-4: The bony spinal canal is normal in size. No evidence of disc bulge or herniation. The neural foramina are bilaterally patent. C4-5: The disc demonstrates decreased height. There is mild to moderate diffuse disc bulge and osteo phytic ridging. There is facet hypertrophy. There is uncovertebral hypertrophy particularly on the r ight. There is narrowing of the right neural foramina. The left neural foramina is patent. C5-6: The bony spinal canal is normal in size. No evidence of disc bulge or herniation. The neural foramina are bilaterally patent. There is facet hypertrophy. C6-7: There is mild central disc protrusion. The neural foramina are bilaterally patent. C7-T1: The bony spinal canal is normal in size. No evidence of disc bulge or herniation. The neura l foramina are bilaterally patent. There is right facet hypertrophy. CONCLUSION: 1. No acute bony abnormalities seen. 2. Tyrs-uo-ndvykeed disc bulge and osteophytic ridging at the C4-C5 level. 3. Mild central disc protrusion at the C6-C7 level. 4. Scattered facet and uncovertebral hypertrophy. Electronically signed by: Babar Flores MD 02/28/2018 11:58 PM EDT
--- NOTE | 2018-03-01 01:11 | MR ---
EXAM DATE: 03/01/2018 1:00 AM EDT AGE/SEX: 72 years / Female INDICATIONS: CVA. Garbled speech. CLINICAL DATA: This is the patient's initial encounter. Patient reports that signs and symptoms have been present for 1 day and indicates a pain score of 0/10. MEDICAL/SURGICAL HISTORY: Diabetes mellitus type II. Hypertension. Gastric bypass. Cholecyste ctomy. COMPARISON: No prior exams available for comparison. TECHNIQUE: Multiplanar, multisequence examination of the brain was performed without contrast. FINDINGS: Cerebrum: The ventricles are normal for age. No evidence of midline shift, mass lesion, hemorrhage or acute infarction. No extraaxial fluid collections are seen. The pituitary gland and suprasellar cistern are normal in configuration. White Matter: There are scattered focal areas of increased signal seen in the cerebral white matter. Posterior Fossa: The cerebellum and brainstem are intact. The 4th ventricle is midline. The cerebel lopontine angle is unremarkable. The cerebellar tonsils are normal in position. Diffusion Imaging: No focal areas of restricted diffusion are seen. No evidence of acute infarction . Extracranial: The visualized portions of the orbits and paranasal sinuses are unremarkable. CONCLUSION: 1. No acute abnormality is seen. 2. Scattered areas of demyelination likely from small vessel ischemic change in the right. Electronically signed by: Babar Flores MD 03/01/2018 1:09 AM EDT
[2018-03-01] MEDS ORDERED: Gadobutrol PF 10 MMOL/10 ML Vial (for RAD) IV.SIG ONE (01:20)
--- NOTE | 2018-03-01 01:28 | MR ---
EXAM DATE: 03/01/2018 1:18 AM EDT AGE/SEX: 72 years / Female INDICATIONS: Stroke. Garbled speech. CLINICAL DATA: This is the patient's initial encounter. Patient reports that signs and symptoms have been present for 1 day and indicates a pain score of 0/10. MEDICAL/SURGICAL HISTORY: Diabetes mellitus type II. Hypertension. Gastric bypass. Cholecyste ctomy. COMPARISON: No prior exams available for comparison. TECHNIQUE: 10 ml Gadavist (gadobutrol) contrast infused MRA (single exam dose) of the extracranial circulation was performed using a neurovascular coil. Postprocessing was performed, including rotati ng sub-volume maximum intensity projections of each carotid artery, rotating full-volume maximum inte nsity projections of both carotid arteries, sagittal and coronal sliding thin-slab reformations of ea ch carotid artery, and left oblique sliding thin-slab reformation through the aortic arch to include the origin of the arch branch vessels. FINDINGS: Aortic Arch : There is a three-vessel origin of the great vessels from the aorta. No evidence of o stial narrowing. Right Carotid : The common carotid artery is intact. The carotid bulb has a normal configuration wi thout ulceration or narrowing. The internal carotid artery lumen is smooth without stenosis. The ex ternal carotid artery is intact. Left Carotid : The common carotid artery is intact. There is a mild focal stenosis at the origin of the left internal carotid artery. The external carotid artery is intact. Vertebrals : The vertebral arteries have a symmetric diameter. No stenotic lesions are seen. CONCLUSION: Mild focal stenosis at the origin of the left internal carotid artery. Percent stenosis is calculated using the diameter of the stenotic region over the diameter of the nor mal distal internal carotid artery Electronically signed by: Babar Flores MD 03/01/2018 1:27 AM EDT
[2018-03-01 02:34] LABS: Creatine Kinase 187 U/L (26-192)
[2018-03-01] MEDS: Acetaminophen 325 MG Tablet PO PRN (03:52)
[2018-03-01 08:38] LABS: Baso % (Auto) 0.4 % (0.0-2.0); Hematocrit 39.7 % (35.0-46.0); Hemoglobin 13.3 gm/dL (11.6-15.3); Lymph # (Auto) 0.5 th/mm3 (1.0-4.8); Lymph % (Auto) 4.2 % (9.0-44.0); Mean Corpuscular HGB Conc 33.5 % (32.0-36.0); Mean Corpuscular Hemoglobin 30.9 pg (27.0-34.0); Mean Corpuscular Volume 92.1 fL (80.0-100.0); Mean Platelet Volume 8.3 fL (7.0-11.0); Mono # (Auto) 0.8 th/mm3 (0.0-0.9); Mono % (Auto) 6.8 % (0.0-8.0); Neut % (Auto) 88.6 % (16.0-70.0); Platelet Count 182 th/mm3 (150-450); Red Blood Count 4.31 mil/mm3 (4.00-5.30); Red Cell Distribution Width 13.5 % (11.6-17.2); White Blood Count 12.4 th/mm3 (4.0-11.0)
[2018-03-01 09:09] LABS: Anion Gap 10 meq/L (5-15); Blood Urea Nitrogen 20 mg/dL (7-18); Calcium 8.2 mg/dL (8.5-10.1); Carbon Dioxide 23.4 meq/L (21.0-32.0); Chloride 103 meq/L (98-107); Chol/HDL Ratio 2.03 Ratio; Cholesterol 115 mg/dL (120-200); Creatine Kinase 255 U/L (26-192); Glomerular Filtration Rate 34 mL/min (>89); Glucose,Random 201 mg/dL (74-106); HDL Cholesterol 56.6 mg/dL (40.0-60.0); LDL Cholesterol,Calculated 34 mg/dL (0-99); Potassium 3.3 meq/L (3.5-5.1); Sodium 136 meq/L (136-145); Triglycerides 120 mg/dL (42-150)
[2018-03-01 09:23] LABS: CKMB Percent 0.4 % (0.0-4.0)
[2018-03-01] MEDS: Insulin NovoLIN Regular Correctional Sugar Inj SQ SCH ×4 (09:49→22:21)
[2018-03-01] MEDS: Sod Chloride 0.9% Inj 1,000 ML IV.CONT SCH ×2 (10:00→20:07)
[2018-03-01] MEDS: Pregabalin 25 MG Capsule PO SCH ×3 (11:02→20:50)
--- NOTE | 2018-03-01 11:49 | P.CONURO ---
History of Present Illness Service: Urology Consult date: 03/01/18 Reason for Consult: Nephrolithiasis Primary Care Provider: UNKNOWN Chief Complaint: Nephroltihiasis, UTI History of Present Illness: 72yo female currently admitted due to syncopal episode seen in consultation for kidney stone. Patient was found by her daughter at home on the floor, unclear as to what happened. She has been evaluated for stroke, thus far negative. She is now undergoing cardiac workup. CT identified a 6mm right proximal ureteral stone with some stranding noted around the right kidney and mild right sided hydronephrosis. Patient is without any flank pain or discomfort. She is however somewhat confused and not completely AAOx3. She also spiked a fever last night as high as 103, however this has improved. She has not yet received any antibiotics. Review of Systems All other systems reviewed negative except as stated in HPI Constitutional: Denies chills, Denies fever(s) Eyes: Denies blurry vision Ears, Nose, Mouth, and Throat: Denies headache(s) Cardiovascular: Denies chest pain Respiratory: Denies cough, Denies shortness of breath Gastrointestinal: Denies abdominal pain Genitourinary: Reports urinary incontinence, Reports urinary urgency Musculoskeletal: Denies back pain Neurologic: Reports confusion, Reports memory loss Allergic/Immunologic: Denies hives PMFSH - History History Provided By: Patient, Family Member - Medical History Medical History: Medical History (Last Reviewed 03/01/18 @ 07:54 by Jenn Garcia) DVT (deep venous thrombosis) HTN (hypertension) Surgical history unknown UTI (urinary tract infection) - Tobacco History Second Hand Smoke Exposure: No Smoking Status: Never smoker Tobacco Type: Cigarettes - Alcohol History How Often Do You Have a Drink Containing Alcohol: Never - Substance Use History Substance History: No History of Abuse - Travel History Recent Travel in the [place] Within the Last 8 Weeks: No Recent Travel Out of the Country Within the Last 8 Weeks: No - Immunization History Tetanus Immunization: >5 Years Hx Influenza Vaccine This Season: No Medications and Allergies Active Medications: Active Medications Acetaminophen (Tylenol) 650 mg PO Q4H PRN PRN Reason: Temp > 100.4 Al Hydroxide/Mg Hydroxide (Milk Of Magnchristina Liq) 30 ml PO Q12H PRN PRN Reason: Mild Constipation Aspirin (Aspirin Chew) 81 mg PO DAILY [facility] Last Admin: 03/01/18 10:02 Dose: 81 mg Bisacodyl (Dulcolax Supp) 10 mg RECTAL DAILY PRN PRN Reason: SEVERE CONSITIPATION Dextrose (D50w Vial) 50 ml IV.PUSH UNSCH PRN PRN Reason: PER HYPOGLYCEMIA PROTOCOL Enalaprilat (Vasotec Inj) 1.25 mg IV.PUSH Q4H PRN PRN Reason: For SBP > 220 or DBP > 120 Enoxaparin Sodium (Lovenox Inj) 40 mg SQ Q24H [facility] Last Admin: 02/28/18 23:17 Dose: 40 mg Escitalopram Oxalate (Lexapro) 20 mg PO DAILY [facility] Last Admin: 03/01/18 10:02 Dose: 20 mg Glucagon (Glucagon Inj) 1 mg OTHER PRN PRN PRN Reason: for Hypoglycemia Protocol Sodium Chloride (Ns Inj) 1,000 mls @ 100 mls/hr IV.CONT .Q10H [facility] Last Admin: 03/01/18 10:00 Dose: 84 mls/hr Cefepime HCl 2,000 mg/ Sodium (Chloride) 100 mls @ 200 mls/hr IV.SIG Q12H [facility] Last Admin: 03/01/18 10:00 Dose: 200 mls/hr Insulin Human Regular (Novolin R Correctional Sugar Inj) 0 units SQ ACHS [facility]; Protocol Last Admin: 03/01/18 09:49 Dose: Not Given Lactulose (Lactulose Liq) 30 ml PO DAILY PRN PRN Reason: SEVERE CONSITIPATION Ondansetron HCl (Zofran Inj) 4 mg IV.PUSH Q6H PRN PRN Reason: NAUSEA OR VOMITING Pantoprazole Sodium (Protonix) 40 mg PO DAILY [facility] Last Admin: 03/01/18 10:01 Dose: 40 mg Pravastatin Sodium (Pravachol) 40 mg PO DAILY [facility] Last Admin: 03/01/18 10:00 Dose: 40 mg Pregabalin (Lyrica) 25 mg PO TID [facility] Last Admin: 03/01/18 11:02 Dose: Not Given Sennosides (Senokot) 17.2 mg PO Q12H PRN PRN Reason: Moderate Constipation Sodium Chloride (Ns Flush) 2 ml IV.FLUSH BID [facility] Last Admin: 03/01/18 10:02 Dose: Not Given Sodium Chloride (Ns Flush) 2 ml IV.FLUSH PRN PRN PRN Reason: FLUSH AFTER USING IV ACCESS Allergies Allergy/AdvReac Type Severity Reaction Status Date / Time latex Allergy Severe Rash Verified 02/28/18 19:51 phenobarbital Allergy Severe Dizziness Verified 02/28/18 19:51 Home Medications Medication Instructions Recorded Confirmed Type escitalopram oxalate [Lexapro] 20 mg PO DAILY 02/28/18 02/28/18 History losartan 25 mg PO DAILY 02/28/18 02/28/18 History metformin 1,000 mg PO BID 02/28/18 02/28/18 History metoprolol succinate 25 mg PO DAILY 02/28/18 02/28/18 History nortriptyline 50 mg PO HS 02/28/18 02/28/18 History omeprazole 40 mg PO DAILY 02/28/18 02/28/18 History pravastatin 40 mg PO DAILY 02/28/18 02/28/18 History pregabalin [Lyrica] 25 mg PO TID 02/28/18 02/28/18 History ropinirole 0.25 mg PO 5 TIMES A DAY 02/28/18 02/28/18 History sertraline 50 mg PO DAILY 02/28/18 02/28/18 History trazodone 50 mg PO DAILY 02/28/18 02/28/18 History Physical Exam Vital Signs - 24 hr 02/28/18 18:37 02/28/18 19:11 02/28/18 23:50 Temperature 102.7 F H 99.4 F Pulse Rate 112 H 113 H 103 H Respiratory Rate 20 18 16 Blood Pressure 127/58 L 129/59 L 169/71 H Pulse Oximetry 96 94 L 93 L 02/28/18 23:58 03/01/18 00:00 03/01/18 03:46 Temperature 100 F H 103.9 F H Pulse Rate 103 H 112 H 123 H Respiratory Rate 16 30 H Blood Pressure 106/71 129/60 Pulse Oximetry 99 03/01/18 04:00 03/01/18 04:37 03/01/18 08:00 Temperature 100.6 F H 97.3 F L Pulse Rate 101 H 81 Respiratory Rate 20 20 16 Blood Pressure 103/50 L 89/48 L Pulse Oximetry 94 L 97 03/01/18 08:40 Temperature Pulse Rate Respiratory Rate Blood Pressure 110/60 Pulse Oximetry Physical Exam: GENERAL: This is a well-nourished, well-developed patient, in no apparent distress. SKIN: No rashes, ecchymoses or lesions. Cool and dry. HEAD: Atraumatic. Normocephalic. EYES: Extraocular motions intact. No scleral icterus. ENT: Nose without bleeding, purulent drainage Airway patent. NECK: Trachea midline. CARDIOVASCULAR: Normal pulse RESPIRATORY: Nonlabored GASTROINTESTINAL: Abdomen nondistended. MUSCULOSKELETAL: Extremities without clubbing, cyanosis NEUROLOGICAL: Awake and alert, FROM all extremities, Normal speech. Lab results reviewed: Yes Laboratory Results - last 24 hr 02/28/18 02/28/18 02/28/18 19:30 19:30 19:30 WBC RBC Hgb Hct MCV MCH MCHC RDW Plt Count MPV Neut % (Auto) Lymph % (Auto) [place] % (Auto) Eos % (Auto) Baso % (Auto) Neut # (Auto) Lymph # (Auto) [place] # (Auto) Eos # (Auto) Baso # (Auto) WBC Differential Differential Comment PT 10.3 INR 1.0 APTT Sodium 132 L Potassium 4.3 Chloride 94 L Carbon Dioxide 25.5 Anion Gap 13 BUN 17 Creatinine 1.40 H Estimated GFR 37 L POC Glucose Random Glucose 188 H Lactic Acid 1.9 Calcium 8.8 Magnesium Total Bilirubin 0.6 AST 24 ALT 21 Alkaline Phosphatase 72 Total Creatine Kinase CK-MB (CK-2) CK-MB (CK-2) % Troponin I Total Protein 7.8 Albumin 3.3 L Triglycerides Cholesterol LDL Cholesterol, Calc HDL Cholesterol Cholesterol/HDL Ratio Urine Color Urine Clarity Urine pH Ur Specific [place] Urine Protein Urine Glucose (UA) Urine Ketones Urine Occult Blood Urine Nitrate Urine Bilirubin Urine Urobilinogen Ur Leukocyte Esterase Urine RBC Urine WBC Ur Squamous Epith Cells Micro UA Comment Urine Culture Comments 02/28/18 02/28/18 02/28/18 19:30 19:30 19:30 WBC 10.2 RBC 4.37 Hgb 13.5 Hct 39.8 MCV 91.0 MCH 31.0 MCHC 34.1 RDW 13.3 Plt Count 224 MPV 8.6 Neut % (Auto) 86.4 H Lymph % (Auto) 6.8 L [place] % (Auto) 6.5 Eos % (Auto) 0.0 Baso % (Auto) 0.3 Neut # (Auto) 8.8 H Lymph # (Auto) 0.7 L [place] # (Auto) 0.7 Eos # (Auto) 0.0 Baso # (Auto) 0.0 WBC Differential . Differential Comment Auto diff final PT INR APTT 27.3 Sodium Potassium Chloride Carbon Dioxide Anion Gap BUN Creatinine Estimated GFR POC Glucose Random Glucose Lactic Acid Calcium Magnesium 1.8 Total Bilirubin AST ALT Alkaline Phosphatase Total Creatine Kinase CK-MB (CK-2) CK-MB (CK-2) % Troponin I Total Protein Albumin Triglycerides Cholesterol LDL Cholesterol, Calc HDL Cholesterol Cholesterol/HDL Ratio Urine Color Urine Clarity Urine pH Ur Specific [place] Urine Protein Urine Glucose (UA) Urine Ketones Urine Occult Blood Urine Nitrate Urine Bilirubin Urine Urobilinogen Ur Leukocyte Esterase Urine RBC Urine WBC Ur Squamous Epith Cells Micro UA Comment Urine Culture Comments 02/28/18 02/28/18 02/28/18 19:30 19:30 20:05 WBC RBC Hgb Hct MCV MCH MCHC RDW Plt Count MPV Neut % (Auto) Lymph % (Auto) [place] % (Auto) Eos % (Auto) Baso % (Auto) Neut # (Auto) Lymph # (Auto) [place] # (Auto) Eos # (Auto) Baso # (Auto) WBC Differential Differential Comment PT INR APTT Sodium Potassium Chloride Carbon Dioxide Anion Gap BUN Creatinine Estimated GFR POC Glucose Random Glucose Lactic Acid Calcium Magnesium Total Bilirubin AST ALT Alkaline Phosphatase Total Creatine Kinase 163 CK-MB (CK-2) Less than 1.0 CK-MB (CK-2) % Troponin I Less than 0.02 L Total Protein Albumin Triglycerides Cholesterol LDL Cholesterol, Calc HDL Cholesterol Cholesterol/HDL Ratio Urine Color Yellow Urine Clarity Hazy H Urine pH 6.0 Ur Specific [place] 1.013 Urine Protein 30 H Urine Glucose (UA) Negative Urine Ketones 20 Urine Occult Blood Negative Urine Nitrate Negative Urine Bilirubin Negative Urine Urobilinogen 2.0 H Ur Leukocyte Esterase Negative Urine RBC 1 Urine WBC 4 Ur Squamous Epith Cells 3 Micro UA Comment Culture not ind Urine Culture Comments Culture not ind 03/01/18 03/01/18 03/01/18 02:02 03:39 08:01 WBC RBC Hgb Hct MCV MCH MCHC RDW Plt Count MPV Neut % (Auto) Lymph % (Auto) [place] % (Auto) Eos % (Auto) Baso % (Auto) Neut # (Auto) Lymph # (Auto) [place] # (Auto) Eos # (Auto) Baso # (Auto) WBC Differential Differential Comment PT INR APTT Sodium Potassium Chloride Carbon Dioxide Anion Gap BUN Creatinine Estimated GFR POC Glucose 241 H 207 H Random Glucose Lactic Acid Calcium Magnesium Total Bilirubin AST ALT Alkaline Phosphatase Total Creatine Kinase 187 CK-MB (CK-2) CK-MB (CK-2) % Troponin I Less than 0.02 L Total Protein Albumin Triglycerides Cholesterol LDL Cholesterol, Calc HDL Cholesterol Cholesterol/HDL Ratio Urine Color Urine Clarity Urine pH Ur Specific [place] Urine Protein Urine Glucose (UA) Urine Ketones Urine Occult Blood Urine Nitrate Urine Bilirubin Urine Urobilinogen Ur Leukocyte Esterase Urine RBC Urine WBC Ur Squamous Epith Cells Micro UA Comment Urine Culture Comments 03/01/18 03/01/18 08:10 08:10 WBC 12.4 H RBC 4.31 Hgb 13.3 Hct 39.7 MCV 92.1 MCH 30.9 MCHC 33.5 RDW 13.5 Plt Count 182 MPV 8.3 Neut % (Auto) 88.6 H Lymph % (Auto) 4.2 L [place] % (Auto) 6.8 Eos % (Auto) 0.0 Baso % (Auto) 0.4 Neut # (Auto) 11.0 H Lymph # (Auto) 0.5 L [place] # (Auto) 0.8 Eos # (Auto) 0.0 Baso # (Auto) 0.0 WBC Differential . Differential Comment Auto diff final PT INR APTT Sodium 136 Potassium 3.3 L D Chloride 103 D Carbon Dioxide 23.4 Anion Gap 10 BUN 20 H Creatinine 1.53 H Estimated GFR 34 L POC Glucose Random Glucose 201 H Lactic Acid Calcium 8.2 L Magnesium Total Bilirubin AST ALT Alkaline Phosphatase Total Creatine Kinase 255 H CK-MB (CK-2) Less than 1.0 CK-MB (CK-2) % 0.4 Troponin I Less than 0.02 L Total Protein Albumin Triglycerides 120 Cholesterol 115 L LDL Cholesterol, Calc 34 HDL Cholesterol 56.6 Cholesterol/HDL Ratio 2.03 Urine Color Urine Clarity Urine pH Ur Specific [place] Urine Protein Urine Glucose (UA) Urine Ketones Urine Occult Blood Urine Nitrate Urine Bilirubin Urine Urobilinogen Ur Leukocyte Esterase Urine RBC Urine WBC Ur Squamous Epith Cells Micro UA Comment Urine Culture Comments Microbiology 02/28/18 19:25 Aerobic Blood Culture - Preliminary Blood - Peripheral No growth in 1 day Anaerobic Blood Culture - Preliminary No growth in 1 day 02/28/18 19:30 Aerobic Blood Culture - Preliminary Blood - Peripheral No growth in 1 day Anaerobic Blood Culture - Preliminary No growth in 1 day Result Diagrams: 03/01/18 08:10 03/01/18 08:10 Personally reviewed images: Yes Imaging: ITS Impressions Chest X-Ray 02/28/18 19:20 CONCLUSION: Lungs are clear. Head CT 02/28/18 19:20 CONCLUSION: 1. No acute findings in the brain. . Abdomen/Pelvis CT 02/28/18 19:21 CONCLUSION: 1. Obstructive uropathy on the right side due to a 6 mm calcified stone in the proximal right ureter. Cervical Spine CT 02/28/18 21:00 CONCLUSION: 1. No acute bony abnormalities seen. 2. [id number] disc bulge and osteophytic ridging at the C4-C5 level. 3. Mild central disc protrusion at the C6-C7 level. 4. Scattered facet and uncovertebral hypertrophy. Head MRI 03/01/18 00:00 CONCLUSION: 1. No acute abnormality is seen. 2. Scattered areas of demyelination likely from small vessel ischemic change in the right. Neck MRA 03/01/18 00:00 CONCLUSION: Mild focal stenosis at the origin of the left internal carotid artery. Percent stenosis is calculated using the diameter of the stenotic region over the diameter of the normal distal internal carotid artery Assessment and Plan - Assessment (1) Ureterolithiasis Code(s): N20.1 - Calculus of ureter Status: Acute (2) DAQUAN (acute kidney injury) Code(s): N17.9 - Acute kidney failure, unspecified Status: Acute (3) Kidney stone Code(s): N20.0 - Calculus of kidney Status: Acute - Plan -CT scan images reviewed with 6mm proximal right ureteral stone noted, minimal hydronephrosis -Patient is currently without pain -She is undergoing full evaluation for her syncopal episode at this time -We will await completion of the work-up. If there is no obvious cause for her syncope and AMS, we may consider right ureteral stent placement as the stone may be obstructing and causing infection and AMS -At this time, recommend broad spectrum antibiotics -Will followup closely. Plan for possible right ureteral stent placement tomorrow, pending results of her syncope evaluation -Plan was discussed with the patient's daughter who understands and agrees with above plan.
--- NOTE | 2018-03-01 12:51 | ECHRPT ---
Indication: CVA/TIA CONCLUSIONS The left ventricular systolic function is normal with an estimated ejection fraction in the range of 55-60%. Normal left ventricular size. Wall thickness is normal. No regional wall motion abnormalities are present. Aortic valve sclerosis is present. There is trace tricuspid valve regurgitation. The estimated pulmonary arterial pressure is 26.8 mmHg. BP: / HR: Rhythm: Sinus MEASUREMENTS (Male / Female) Normal Values Technical Quality:Fair 2D ECHO LV Diastolic Diameter PLAX 3.5 cm 4.2 - 5.9 / 3.9 - 5.3 cm LV Systolic Diameter PLAX 2.5 cm IVS Diastolic Thickness 1.1 cm 0.6 - 1.0 / 0.6 - 0.9 cm LVPW Diastolic Thickness 1.1 cm 0.6 - 1.0 / 0.6 - 0.9 cm LV Relative Wall Thickness 0.6 LVOT Diameter 1.9 cm LV Ejection Fraction MOD 4C 56.9 % LV Ejection Fraction 4C AL 55.5 % M-MODE Aortic Root Diameter MM 2.7 cm LA Systolic Diameter MM 3.8 cm LA Ao Ratio MM 1.4 AV Cusp Separation MM 1.7 cm DOPPLER AV Peak Velocity 115.0 cm/s AV Peak Gradient 5.3 mmHg LVOT Peak Velocity 103.0 cm/s LVOT Peak Gradient 4.2 mmHg AV Area Cont Eq pk 2.5 cm MV Area PHT 3.0 cm Mitral E Point Velocity 95.5 cm/s Mitral A Point Velocity 84.4 cm/s Mitral E to A Ratio 1.1 LV E' Lateral Velocity 8.8 cm/s Mitral E to LV E' Lateral Ratio 10.9 LV E' Septal Velocity 6.7 cm/s Mitral E to LV E' Septal Ratio 14.2 TR Peak Velocity 205.0 cm/s TR Peak Gradient 16.8 mmHg Right Atrial Pressure 10.0 mmHg Pulmonary Artery Systolic Pressu 26.8 mmHg Right Ventricular Systolic Press 26.8 mmHg PV Peak Velocity 89.6 cm/s PV Peak Gradient 3.2 mmHg FINDINGS LEFT VENTRICLE The left ventricular systolic function is normal with an estimated ejection fraction in the range of 55-60%. Normal left ventricular size. Wall thickness is normal. No regional wall motion abnormalities are present. RIGHT VENTRICLE Normal right ventricular size and systolic function. LEFT ATRIUM The left atrial size is normal. RIGHT ATRIUM The right atrial size is normal. ATRIAL SEPTUM Normal atrial septal thickness without atrial level shunting by limited color doppler interrogation. AORTA The aortic root and proximal ascending aorta are normal in size on limited imaging. MITRAL VALVE Structurally normal mitral valve. No mitral valve stenosis or regurgitation. AORTIC VALVE Trileaflet aortic valve. Aortic valve sclerosis is present. TRICUSPID VALVE Structurally normal tricuspid valve. There is trace tricuspid valve regurgitation. The estimated pulmonary arterial pressure is 26.8 mmHg. PULMONARY VALVE No pulmonary valve regurgitation or stenosis. VESSELS The inferior vena cava is normal in size. PERICARDIUM No pericardial effusion. Juan José Mcdonough MD, FACC (Electronically Signed) Final Date:01 March 2018 12:49
--- NOTE | 2018-03-01 12:54 | MB ---
cc: Erick Silva MD, PhD DATE: 03/01/2018 REASON FOR CONSULTATION: Fall. HISTORY OF PRESENT ILLNESS: Ms. Ferrer is a very nice 72-year-old female who fell at home yesterday. She states she did remember falling trying to catch herself. She was on the floor the entire day. Her daughter saw her in the afternoon. She was very confused, disoriented with slurring of her speech, which was thought due to dryness of the mouth due to dehydration. No focal deficits were noted. She was running a fever in the ER, 102 degrees. Blood pressure is stable. She has no prior history of stroke or seizures. PAST MEDICAL HISTORY: History of DVT many years ago, hypertension, UTI. MEDICATIONS: 1. Tylenol. 2. Hydrocodone. 3. Aspirin 81 mg daily. 4. Dulcolax. 5. Dextrose. 6. Enalapril. 7. She is currently on Lovenox 40 mg subcu daily. 8. Glucagon. 9. Cefepime. 10. Lactulose. 11. Naloxone. 12. Zofran p.r.n. 13. Pravastatin. 14. Lyrica 25 mg t.i.d. PHYSICAL EXAMINATION: VITAL SIGNS: Blood pressure this morning is 89/48, pulse is 81, respiratory rate 16, temperature 97.3 degrees currently, earlier in the morning she was up to 103.9 degrees at 3 o'clock. NEUROLOGIC: Currently, she is alert and oriented x 3. There is normal recall. Follows commands. Speech is fluent. Cranial nerves are intact. Motor exam is 5/5 . There is no drift. normal. Reflexes are symmetric. IMAGING STUDIES: MRI of the brain is negative. MRA of the brain is normal. MRA of the neck shows minimal atherosclerosis. No significant stenosis. CT brain normal. LABORATORY DATA: White count 12,400, hemoglobin 13.3, hematocrit 39.7%, platelet count 182,000. PT 10.3, INR 1, aPTT 27.3. Sodium is 136, potassium 3.3, chloride 103, CO2 is 23.4, BUN is 20, creatinine 1.53, GFR is 34, glucose 207. Calcium 8.2, CPK 255. Triglycerides 120, cholesterol 115, LDL 34, HDL 56. Troponin less than 0.02. Urinalysis: pH is 6, specific gravity 1.013, protein is 30, glucose negative, urobilinogen 2, leukocyte esterase negative, 4 WBCs, 1 RBC present. A chest x-ray is within normal limits. Blood cultures are pending. IMPRESSION: Recent fall with mental status change, confusion, and fever. At the present time, she is not having any headaches. She has no nuchal rigidity. No sign of meningitis. The fevers come down as well. I suspect that her fall may have been related to her febrile illness due to hypotension and dehydration, and seizure but likely. At the present time, she has no exam findings to strongly suspect meningitis and she is becoming afebrile. RECOMMENDATION: We will obtain an EEG to rule out remote chance of seizure, also echocardiogram. At this time, there is no strong indication for a lumbar puncture. If the patient were to develop fevers again with headache and other constitutional symptoms of meningitis, we would consider LP at that time. Erick Silva MD, PhD DOROTHY/rell/ehsan , 09:55 AM , 10:05 AM
[2018-03-01 13:50] LABS: Hemoglobin A1c 6.7 % (4.3-6.0)
--- NOTE | 2018-03-01 13:58 | P.PNIM ---
Subjective Interval history: Per RN patient much more alert than earlier today Patient sister is in the room and reports that patient seems to be back to herself Patient awakes easily to voice denies pain offers no specific complaints Physical Exam Vital signs: Vital Signs 02/28/18 18:37 02/28/18 19:11 02/28/18 23:50 Temperature 102.7 F H 99.4 F Pulse Rate 112 H 113 H 103 H Respiratory Rate 20 18 16 Blood Pressure 127/58 L 129/59 L 169/71 H Pulse Oximetry 96 94 L 93 L 02/28/18 23:58 03/01/18 00:00 03/01/18 03:46 Temperature 100 F H 103.9 F H Pulse Rate 103 H 112 H 123 H Respiratory Rate 16 30 H Blood Pressure 106/71 129/60 Pulse Oximetry 99 03/01/18 04:00 03/01/18 04:37 03/01/18 08:00 Temperature 100.6 F H 97.3 F L Pulse Rate 101 H 81 Respiratory Rate 20 20 16 Blood Pressure 103/50 L 89/48 L Pulse Oximetry 94 L 97 03/01/18 08:40 03/01/18 12:00 Temperature 97.6 F Pulse Rate 77 Respiratory Rate 18 Blood Pressure 110/60 110/84 Pulse Oximetry 95 Intake & Output 02/28/18 03/01/18 03/01/18 18:59 06:59 18:59 Intake Total 600 / 600 1000 / 1000 Balance 600 / 600 1000 / 1000 Weight 73.482 kg Intake: IV 600 / 600 1000 / 1000 NS Inj 1,000 ML @ 100 mls/hr IV 1000 / 1000 .CONT .Q10H [facility] Rx#:[id number] Ofirmev Inj 1,000 mg In 100 ml 0 / 0 @ 400 mls/hr IV.SIG NOW ONE Rx# :[id number] Maxipime Inj 2,000 MG In NS Inj 100 / 100 100 ML @ 200 mls/hr IV.SIG ONCE ONE Rx#:[id number] NS Inj 500 ML @ Wide Open IV. 500 / 500 SIG BOLUS ONE Rx#:[id number] Narrative: GENERAL: This is an elderly 72 year old female patient, in no apparent distress. CARDIOVASCULAR: Regular rate and rhythm RESPIRATORY: Clear to auscultation. Breath sounds equal bilaterally. GASTROINTESTINAL: Abdomen soft, non-tender, nondistended. Normal active bowel sounds MUSCULOSKELETAL: Extremities without clubbing, cyanosis, or edema. NEURO: Alert & Oriented. Moves all ext x4 - Urinary Catheter Management Indwelling Urethral Catheter Cath placed during this visit: yes, but has since been removed by the nurse Reason for continuing: Decision to DC catheter Insertion date: 03/01/18 Removal date: 03/02/18 Removal time: 19:00 Results - Labs CBC & Chem 7: 03/02/18 03:10 03/03/18 11:23 Laboratory Results - last 24 hr 02/28/18 02/28/18 02/28/18 19:30 19:30 19:30 WBC RBC Hgb Hct MCV MCH MCHC RDW Plt Count MPV Neut % (Auto) Lymph % (Auto) [place] % (Auto) Eos % (Auto) Baso % (Auto) Neut # (Auto) Lymph # (Auto) [place] # (Auto) Eos # (Auto) Baso # (Auto) WBC Differential Differential Comment PT 10.3 INR 1.0 APTT Sodium 132 L Potassium 4.3 Chloride 94 L Carbon Dioxide 25.5 Anion Gap 13 BUN 17 Creatinine 1.40 H Estimated GFR 37 L POC Glucose Random Glucose 188 H Lactic Acid 1.9 Calcium 8.8 Magnesium Total Bilirubin 0.6 AST 24 ALT 21 Alkaline Phosphatase 72 Total Creatine Kinase CK-MB (CK-2) CK-MB (CK-2) % Troponin I Total Protein 7.8 Albumin 3.3 L Triglycerides Cholesterol LDL Cholesterol, Calc HDL Cholesterol Cholesterol/HDL Ratio Urine Color Urine Clarity Urine pH Ur Specific [place] Urine Protein Urine Glucose (UA) Urine Ketones Urine Occult Blood Urine Nitrate Urine Bilirubin Urine Urobilinogen Ur Leukocyte Esterase Urine RBC Urine WBC Ur Squamous Epith Cells Micro UA Comment Urine Culture Comments 02/28/18 02/28/18 02/28/18 19:30 19:30 19:30 WBC 10.2 RBC 4.37 Hgb 13.5 Hct 39.8 MCV 91.0 MCH 31.0 MCHC 34.1 RDW 13.3 Plt Count 224 MPV 8.6 Neut % (Auto) 86.4 H Lymph % (Auto) 6.8 L [place] % (Auto) 6.5 Eos % (Auto) 0.0 Baso % (Auto) 0.3 Neut # (Auto) 8.8 H Lymph # (Auto) 0.7 L [place] # (Auto) 0.7 Eos # (Auto) 0.0 Baso # (Auto) 0.0 WBC Differential . Differential Comment Auto diff final PT INR APTT 27.3 Sodium Potassium Chloride Carbon Dioxide Anion Gap BUN Creatinine Estimated GFR POC Glucose Random Glucose Lactic Acid Calcium Magnesium 1.8 Total Bilirubin AST ALT Alkaline Phosphatase Total Creatine Kinase CK-MB (CK-2) CK-MB (CK-2) % Troponin I Total Protein Albumin Triglycerides Cholesterol LDL Cholesterol, Calc HDL Cholesterol Cholesterol/HDL Ratio Urine Color Urine Clarity Urine pH Ur Specific [place] Urine Protein Urine Glucose (UA) Urine Ketones Urine Occult Blood Urine Nitrate Urine Bilirubin Urine Urobilinogen Ur Leukocyte Esterase Urine RBC Urine WBC Ur Squamous Epith Cells Micro UA Comment Urine Culture Comments 02/28/18 02/28/18 02/28/18 19:30 19:30 20:05 WBC RBC Hgb Hct MCV MCH MCHC RDW Plt Count MPV Neut % (Auto) Lymph % (Auto) [place] % (Auto) Eos % (Auto) Baso % (Auto) Neut # (Auto) Lymph # (Auto) [place] # (Auto) Eos # (Auto) Baso # (Auto) WBC Differential Differential Comment PT INR APTT Sodium Potassium Chloride Carbon Dioxide Anion Gap BUN Creatinine Estimated GFR POC Glucose Random Glucose Lactic Acid Calcium Magnesium Total Bilirubin AST ALT Alkaline Phosphatase Total Creatine Kinase 163 CK-MB (CK-2) Less than 1.0 CK-MB (CK-2) % Troponin I Less than 0.02 L Total Protein Albumin Triglycerides Cholesterol LDL Cholesterol, Calc HDL Cholesterol Cholesterol/HDL Ratio Urine Color Yellow Urine Clarity Hazy H Urine pH 6.0 Ur Specific [place] 1.013 Urine Protein 30 H Urine Glucose (UA) Negative Urine Ketones 20 Urine Occult Blood Negative Urine Nitrate Negative Urine Bilirubin Negative Urine Urobilinogen 2.0 H Ur Leukocyte Esterase Negative Urine RBC 1 Urine WBC 4 Ur Squamous Epith Cells 3 Micro UA Comment Culture not ind Urine Culture Comments Culture not ind 03/01/18 03/01/18 03/01/18 02:02 03:39 08:01 WBC RBC Hgb Hct MCV MCH MCHC RDW Plt Count MPV Neut % (Auto) Lymph % (Auto) [place] % (Auto) Eos % (Auto) Baso % (Auto) Neut # (Auto) Lymph # (Auto) [place] # (Auto) Eos # (Auto) Baso # (Auto) WBC Differential Differential Comment PT INR APTT Sodium Potassium Chloride Carbon Dioxide Anion Gap BUN Creatinine Estimated GFR POC Glucose 241 H 207 H Random Glucose Lactic Acid Calcium Magnesium Total Bilirubin AST ALT Alkaline Phosphatase Total Creatine Kinase 187 CK-MB (CK-2) CK-MB (CK-2) % Troponin I Less than 0.02 L Total Protein Albumin Triglycerides Cholesterol LDL Cholesterol, Calc HDL Cholesterol Cholesterol/HDL Ratio Urine Color Urine Clarity Urine pH Ur Specific [place] Urine Protein Urine Glucose (UA) Urine Ketones Urine Occult Blood Urine Nitrate Urine Bilirubin Urine Urobilinogen Ur Leukocyte Esterase Urine RBC Urine WBC Ur Squamous Epith Cells Micro UA Comment Urine Culture Comments 03/01/18 03/01/18 03/01/18 08:10 08:10 12:38 WBC 12.4 H RBC 4.31 Hgb 13.3 Hct 39.7 MCV 92.1 MCH 30.9 MCHC 33.5 RDW 13.5 Plt Count 182 MPV 8.3 Neut % (Auto) 88.6 H Lymph % (Auto) 4.2 L [place] % (Auto) 6.8 Eos % (Auto) 0.0 Baso % (Auto) 0.4 Neut # (Auto) 11.0 H Lymph # (Auto) 0.5 L [place] # (Auto) 0.8 Eos # (Auto) 0.0 Baso # (Auto) 0.0 WBC Differential . Differential Comment Auto diff final PT INR APTT Sodium 136 Potassium 3.3 L D Chloride 103 D Carbon Dioxide 23.4 Anion Gap 10 BUN 20 H Creatinine 1.53 H Estimated GFR 34 L POC Glucose 209 H Random Glucose 201 H Lactic Acid Calcium 8.2 L Magnesium Total Bilirubin AST ALT Alkaline Phosphatase Total Creatine Kinase 255 H CK-MB (CK-2) Less than 1.0 CK-MB (CK-2) % 0.4 Troponin I Less than 0.02 L Total Protein Albumin Triglycerides 120 Cholesterol 115 L LDL Cholesterol, Calc 34 HDL Cholesterol 56.6 Cholesterol/HDL Ratio 2.03 Urine Color Urine Clarity Urine pH Ur Specific [place] Urine Protein Urine Glucose (UA) Urine Ketones Urine Occult Blood Urine Nitrate Urine Bilirubin Urine Urobilinogen Ur Leukocyte Esterase Urine RBC Urine WBC Ur Squamous Epith Cells Micro UA Comment Urine Culture Comments Microbiology 02/28/18 19:25 Blood - Peripheral Aerobic Blood Culture - Preliminary No growth in 1 day 02/28/18 19:25 Blood - Peripheral Anaerobic Blood Culture - Preliminary No growth in 1 day 02/28/18 19:30 Blood - Peripheral Aerobic Blood Culture - Preliminary No growth in 1 day 02/28/18 19:30 Blood - Peripheral Anaerobic Blood Culture - Preliminary No growth in 1 day - Imaging Impressions Chest X-Ray 02/28/18 19:20 CONCLUSION: Lungs are clear. Head CT 02/28/18 19:20 CONCLUSION: 1. No acute findings in the brain. . Abdomen/Pelvis CT 02/28/18 19:21 CONCLUSION: 1. Obstructive uropathy on the right side due to a 6 mm calcified stone in the proximal right ureter. Cervical Spine CT 02/28/18 21:00 CONCLUSION: 1. No acute bony abnormalities seen. 2. [id number] disc bulge and osteophytic ridging at the C4-C5 level. 3. Mild central disc protrusion at the C6-C7 level. 4. Scattered facet and uncovertebral hypertrophy. Head MRI 03/01/18 00:00 CONCLUSION: 1. No acute abnormality is seen. 2. Scattered areas of demyelination likely from small vessel ischemic change in the right. Neck MRA 03/01/18 00:00 CONCLUSION: Mild focal stenosis at the origin of the left internal carotid artery. Percent stenosis is calculated using the diameter of the stenotic region over the diameter of the normal distal internal carotid artery Assessment and Plan - Assessment (1) Ureterolithiasis Code(s): N20.1 - Calculus of ureter Status: Acute Plan: Fall at home, possible syncope AMS speech disturbance - concern for CVA vs metabolic encephalopathy. Symptoms onset not known - she was found on the floor at home. Daughter reports of late there has been concern for early dementia. MRI brain reviewed and reveals: 1. No acute abnormality is seen. 2. Scattered areas of demyelination likely from small vessel ischemic change in the right. MRA neck reveals: Mild focal stenosis at the origin of the left internal carotid artery. Echo 03/01/18: The left ventricular systolic function is normal with an estimated ejection fraction in the range of 55-60%. Normal left ventricular size. Wall thickness is normal. No regional wall motion abnormalities are present. Aortic valve sclerosis is present. There is trace tricuspid valve regurgitation. The estimated pulmonary arterial pressure is 26.8 mmHg. continuous telemetry PT/OT/ST Asa 81 mg daily. consult to neurology Dr. Silva who ordered EEG, recommends consider lumbar puncture of patient's temperature elevates again with headache and other symptoms of meningitis Ureterolithiasis Urology consulted, patient seen by Dr. Varela planning possible right ureteral stent placement tomorrow, pending results of her syncope evaluation Patient does not have any pain IV fluids IV cefepime Blood cultures pending repeat CBC and BMP in AM HTN will hold home antihypertensive regiment, patient's BP has been running low asked nursing to take BPs manually Vasotec as needed DM with peripheral neuropathy hold metformin. SSI with accu checks. diabetic diet Cont Lyrica. Patient no longer has FHCP - patient transferred to [facility] service Dr. Noe Ferrer (2) Altered mental status Code(s): R41.82 - Altered mental status, unspecified Status: Acute (3) DAQUAN (acute kidney injury) Code(s): N17.9 - Acute kidney failure, unspecified Status: Acute (4) Fall Code(s): W19.XXXA - Unspecified fall, initial encounter Status: Acute - Attending Attestation Patient examined. Assessment and plan formulated with Yudy Richmond PA-C. I agree with the above.
[2018-03-01 16:56] LABS: Baso # (Auto) 0.1 th/mm3 (0.0-0.2); Eos % (Auto) 0.2 % (0.0-4.0); Hematocrit 38.1 % (35.0-46.0); Hemoglobin 12.7 gm/dL (11.6-15.3); Lymph # (Auto) 0.2 th/mm3 (1.0-4.8); Lymph % (Auto) 3.1 % (9.0-44.0); Mean Corpuscular HGB Conc 33.3 % (32.0-36.0); Mean Corpuscular Hemoglobin 30.9 pg (27.0-34.0); Mean Platelet Volume 8.3 fL (7.0-11.0); Mono # (Auto) 0.2 th/mm3 (0.0-0.9); Mono % (Auto) 3.6 % (0.0-8.0); Neut # (Auto) 5.6 th/mm3 (1.8-7.7); Neut % (Auto) 92.1 % (16.0-70.0); Platelet Count 172 th/mm3 (150-450); Red Cell Distribution Width 13.6 % (11.6-17.2); White Blood Count 6.1 th/mm3 (4.0-11.0)
--- NOTE | 2018-03-01 17:07 | CT ---
EXAM DATE: 03/01/2018 4:58 PM EDT AGE/SEX: 72 years / Female INDICATIONS: Stroke alert, dysphasia. CLINICAL DATA: This is the patient's initial encounter. Patient reports that signs and symptoms have been present for 1 day and indicates a pain score of Nonresponsive. MEDICAL/SURGICAL HISTORY: Deep venous thrombosis. Transient ischemic attack. Non-responsive. RADIATION DOSE: 64.63 CTDI (mGy) COMPARISON: [facility] – [place], [place] HEAD W/O CONTRAST, 03/01/2018. . TECHNIQUE: CT of the head without contrast. Using automated exposure control and adjustment of the mA and/or kV according to patient size, radiation dose was kept as low as reasonably achievable to ob tain optimal diagnostic quality images. DICOM format image data is available electronically for revi ew and comparison. FINDINGS: Cerebrum: Moderate diffuse cerebral atrophy. The ventricles are normal for degree of atrophy. No verónica dence of midline shift, mass lesion, hemorrhage or acute infarction. No extraaxial fluid collections are seen. Posterior Fossa: The cerebellum and brainstem are intact. The 4th ventricle is midline. The cerebe llopontine angle is unremarkable. Extracranial: The visualized portion of the orbits is intact. Skull: The calvaria is intact. No evidence of skull fracture. CONCLUSION: 1. Senescent changes without acute intracranial abnormality. . Findings were personally discussed with Dr. Silva at 1702 p.m. Electronically signed by: Edilberto Martin MD 03/01/2018 5:06 PM EDT
[2018-03-01] MEDS ORDERED: ALTEPLASE DRIP IV.SIG ONE (17:17)
[2018-03-01] MEDS ORDERED: Alteplase Bolus 9 MG/9 ML Syringe IV.PUSH ONE (17:17)
[2018-03-01 17:18] LABS: Troponin I 0.02 ng/mL (0.02-0.05)
[2018-03-01 17:27] LABS: Activated Partial Thrombo Time 28.8 sec (24.3-30.1); INR 1.1 Ratio; Prothrombin Time 10.9 sec (9.8-11.6)
[2018-03-01 17:30] LABS: CKMB Percent 0.5 % (0.0-4.0)
--- NOTE | 2018-03-01 17:31 | P.PNNEU ---
Subjective Subjective Comments: STROKE ALERT CALLED. Patient developed acute onset of slurred speech and mild left sided weakness. Serum glucose 220. NIHSS = 4. Active Medications: Active Medications Acetaminophen (Tylenol) 650 mg PO Q4H PRN PRN Reason: Temp > 100.4 Al Hydroxide/Mg Hydroxide (Milk Of Magnesia Liq) 30 ml PO Q12H PRN PRN Reason: Mild Constipation Bisacodyl (Dulcolax Supp) 10 mg RECTAL DAILY PRN PRN Reason: SEVERE CONSITIPATION Dextrose (D50w Vial) 50 ml IV.PUSH UNSCH PRN PRN Reason: PER HYPOGLYCEMIA PROTOCOL Enalaprilat (Vasotec Inj) 1.25 mg IV.PUSH Q4H PRN PRN Reason: For SBP > 220 or DBP > 120 Escitalopram Oxalate (Lexapro) 20 mg PO DAILY [facility] Last Admin: 03/01/18 10:02 Dose: 20 mg Glucagon (Glucagon Inj) 1 mg OTHER PRN PRN PRN Reason: for Hypoglycemia Protocol Sodium Chloride (Ns Inj) 1,000 mls @ 100 mls/hr IV.CONT .Q10H [facility] Last Admin: 03/01/18 10:00 Dose: 84 mls/hr Cefepime HCl 2,000 mg/ Sodium (Chloride) 100 mls @ 200 mls/hr IV.SIG Q12H [facility] Last Admin: 03/01/18 10:00 Dose: 200 mls/hr Insulin Human Regular (Novolin R Correctional Sugar Inj) 0 units SQ ACHS [facility]; Protocol Last Admin: 03/01/18 13:51 Dose: 3 units Lactulose (Lactulose Liq) 30 ml PO DAILY PRN PRN Reason: SEVERE CONSITIPATION Ondansetron HCl (Zofran Inj) 4 mg IV.PUSH Q6H PRN PRN Reason: NAUSEA OR VOMITING Pantoprazole Sodium (Protonix) 40 mg PO DAILY [facility] Last Admin: 03/01/18 10:01 Dose: 40 mg Pravastatin Sodium (Pravachol) 40 mg PO DAILY [facility] Last Admin: 03/01/18 10:00 Dose: 40 mg Pregabalin (Lyrica) 25 mg PO TID [facility] Last Admin: 03/01/18 14:45 Dose: 25 mg Ropinirole HCl (Requip) 0.5 mg PO HS [facility] Ropinirole HCl (Requip) 0.25 mg PO TIDAC [facility] Sennosides (Senokot) 17.2 mg PO Q12H PRN PRN Reason: Moderate Constipation Sodium Chloride (Ns Flush) 2 ml IV.FLUSH BID [facility] Last Admin: 03/01/18 10:02 Dose: Not Given Sodium Chloride (Ns Flush) 2 ml IV.FLUSH PRN PRN PRN Reason: FLUSH AFTER USING IV ACCESS Allergies/Adverse Reactions: Allergies Allergy/AdvReac Type Severity Reaction Status Date / Time latex Allergy Severe Rash Verified 02/28/18 19:51 phenobarbital Allergy Severe Dizziness Verified 02/28/18 19:51 Physical Exam Vital signs: Vital Signs 02/28/18 18:37 02/28/18 19:11 02/28/18 23:50 Temperature 102.7 F H 99.4 F Pulse Rate 112 H 113 H 103 H Respiratory Rate 20 18 16 Blood Pressure 127/58 L 129/59 L 169/71 H Pulse Oximetry 96 94 L 93 L 02/28/18 23:58 03/01/18 00:00 03/01/18 03:46 Temperature 100 F H 103.9 F H Pulse Rate 103 H 112 H 123 H Respiratory Rate 16 30 H Blood Pressure 106/71 129/60 Pulse Oximetry 99 03/01/18 04:00 03/01/18 04:37 03/01/18 08:00 Temperature 100.6 F H 97.3 F L Pulse Rate 101 H 81 Respiratory Rate 20 20 16 Blood Pressure 103/50 L 89/48 L Pulse Oximetry 94 L 97 03/01/18 08:40 03/01/18 12:00 Temperature 97.6 F Pulse Rate 77 Respiratory Rate 18 Blood Pressure 110/60 110/84 Pulse Oximetry 95 Intake & Output 02/28/18 03/01/18 03/01/18 18:59 06:59 18:59 Intake Total 600 / 600 1000 / 1000 Balance 600 / 600 1000 / 1000 Weight 73.482 kg Intake: IV 600 / 600 1000 / 1000 NS Inj 1,000 ML @ 100 mls/hr IV 1000 / 1000 .CONT .Q10H [facility] Rx#:[id number] Ofirmev Inj 1,000 mg In 100 ml 0 / 0 @ 400 mls/hr IV.SIG NOW ONE Rx# :[id number] Maxipime Inj 2,000 MG In NS Inj 100 / 100 100 ML @ 200 mls/hr IV.SIG ONCE ONE Rx#:[id number] NS Inj 500 ML @ Wide Open IV. 500 / 500 SIG BOLUS ONE Rx#:[id number] - Routine Neurological Exam alert, speech is very dysarthric--much different from when I saw her earlier today. Not aphasic. She is able to repeat phrases, follow commands CN 2-12 normal MOTOR--at this time 5/5 BUE and BLE, no drift Objective Radiology Results: CT brain negative Laboratory Results - last 24 hr 02/28/18 02/28/18 02/28/18 19:30 19:30 19:30 WBC RBC Hgb POC Hgb (Calc) Hct POC Hct MCV MCH MCHC RDW Plt Count MPV Neut % (Auto) Lymph % (Auto) [place] % (Auto) Eos % (Auto) Baso % (Auto) Neut # (Auto) Lymph # (Auto) [place] # (Auto) Eos # (Auto) Baso # (Auto) WBC Differential Differential Comment PT 10.3 INR 1.0 APTT POC Sodium Sodium 132 L POC Potassium Potassium 4.3 POC Chloride Chloride 94 L Carbon Dioxide 25.5 Anion Gap 13 POC BUN BUN 17 Creatinine 1.40 H POC Creatinine Estimated GFR 37 L POC Glucose Random Glucose 188 H Hemoglobin A1c Lactic Acid 1.9 Calcium 8.8 Magnesium Total Bilirubin 0.6 AST 24 ALT 21 Alkaline Phosphatase 72 Total Creatine Kinase CK-MB (CK-2) CK-MB (CK-2) % Troponin I Total Protein 7.8 Albumin 3.3 L Triglycerides Cholesterol LDL Cholesterol, Calc HDL Cholesterol Cholesterol/HDL Ratio Urine Color Urine Clarity Urine pH Ur Specific [place] Urine Protein Urine Glucose (UA) Urine Ketones Urine Occult Blood Urine Nitrate Urine Bilirubin Urine Urobilinogen Ur Leukocyte Esterase Urine RBC Urine WBC Ur Squamous Epith Cells Micro UA Comment Urine Culture Comments Blood Type 02/28/18 02/28/18 02/28/18 19:30 19:30 19:30 WBC 10.2 RBC 4.37 Hgb 13.5 POC Hgb (Calc) Hct 39.8 POC Hct MCV 91.0 MCH 31.0 MCHC 34.1 RDW 13.3 Plt Count 224 MPV 8.6 Neut % (Auto) 86.4 H Lymph % (Auto) 6.8 L [place] % (Auto) 6.5 Eos % (Auto) 0.0 Baso % (Auto) 0.3 Neut # (Auto) 8.8 H Lymph # (Auto) 0.7 L [place] # (Auto) 0.7 Eos # (Auto) 0.0 Baso # (Auto) 0.0 WBC Differential . Differential Comment Auto diff final PT INR APTT 27.3 POC Sodium Sodium POC Potassium Potassium POC Chloride Chloride Carbon Dioxide Anion Gap POC BUN BUN Creatinine POC Creatinine Estimated GFR POC Glucose Random Glucose Hemoglobin A1c Lactic Acid Calcium Magnesium 1.8 Total Bilirubin AST ALT Alkaline Phosphatase Total Creatine Kinase CK-MB (CK-2) CK-MB (CK-2) % Troponin I Total Protein Albumin Triglycerides Cholesterol LDL Cholesterol, Calc HDL Cholesterol Cholesterol/HDL Ratio Urine Color Urine Clarity Urine pH Ur Specific [place] Urine Protein Urine Glucose (UA) Urine Ketones Urine Occult Blood Urine Nitrate Urine Bilirubin Urine Urobilinogen Ur Leukocyte Esterase Urine RBC Urine WBC Ur Squamous Epith Cells Micro UA Comment Urine Culture Comments Blood Type 02/28/18 02/28/18 02/28/18 19:30 19:30 20:05 WBC RBC Hgb POC Hgb (Calc) Hct POC Hct MCV MCH MCHC RDW Plt Count MPV Neut % (Auto) Lymph % (Auto) [place] % (Auto) Eos % (Auto) Baso % (Auto) Neut # (Auto) Lymph # (Auto) [place] # (Auto) Eos # (Auto) Baso # (Auto) WBC Differential Differential Comment PT INR APTT POC Sodium Sodium POC Potassium Potassium POC Chloride Chloride Carbon Dioxide Anion Gap POC BUN BUN Creatinine POC Creatinine Estimated GFR POC Glucose Random Glucose Hemoglobin A1c Lactic Acid Calcium Magnesium Total Bilirubin AST ALT Alkaline Phosphatase Total Creatine Kinase 163 CK-MB (CK-2) Less than 1.0 CK-MB (CK-2) % Troponin I Less than 0.02 L Total Protein Albumin Triglycerides Cholesterol LDL Cholesterol, Calc HDL Cholesterol Cholesterol/HDL Ratio Urine Color Yellow Urine Clarity Hazy H Urine pH 6.0 Ur Specific [place] 1.013 Urine Protein 30 H Urine Glucose (UA) Negative Urine Ketones 20 Urine Occult Blood Negative Urine Nitrate Negative Urine Bilirubin Negative Urine Urobilinogen 2.0 H Ur Leukocyte Esterase Negative Urine RBC 1 Urine WBC 4 Ur Squamous Epith Cells 3 Micro UA Comment Culture not ind Urine Culture Comments Culture not ind Blood Type 03/01/18 03/01/18 03/01/18 02:02 03:39 08:01 WBC RBC Hgb POC Hgb (Calc) Hct POC Hct MCV MCH MCHC RDW Plt Count MPV Neut % (Auto) Lymph % (Auto) [place] % (Auto) Eos % (Auto) Baso % (Auto) Neut # (Auto) Lymph # (Auto) [place] # (Auto) Eos # (Auto) Baso # (Auto) WBC Differential Differential Comment PT INR APTT POC Sodium Sodium POC Potassium Potassium POC Chloride Chloride Carbon Dioxide Anion Gap POC BUN BUN Creatinine POC Creatinine Estimated GFR POC Glucose 241 H 207 H Random Glucose Hemoglobin A1c Lactic Acid Calcium Magnesium Total Bilirubin AST ALT Alkaline Phosphatase Total Creatine Kinase 187 CK-MB (CK-2) CK-MB (CK-2) % Troponin I Less than 0.02 L Total Protein Albumin Triglycerides Cholesterol LDL Cholesterol, Calc HDL Cholesterol Cholesterol/HDL Ratio Urine Color Urine Clarity Urine pH Ur Specific [place] Urine Protein Urine Glucose (UA) Urine Ketones Urine Occult Blood Urine Nitrate Urine Bilirubin Urine Urobilinogen Ur Leukocyte Esterase Urine RBC Urine WBC Ur Squamous Epith Cells Micro UA Comment Urine Culture Comments Blood Type 03/01/18 03/01/18 03/01/18 08:10 08:10 08:10 WBC 12.4 H RBC 4.31 Hgb 13.3 POC Hgb (Calc) Hct 39.7 POC Hct MCV 92.1 MCH 30.9 MCHC 33.5 RDW 13.5 Plt Count 182 MPV 8.3 Neut % (Auto) 88.6 H Lymph % (Auto) 4.2 L [place] % (Auto) 6.8 Eos % (Auto) 0.0 Baso % (Auto) 0.4 Neut # (Auto) 11.0 H Lymph # (Auto) 0.5 L [place] # (Auto) 0.8 Eos # (Auto) 0.0 Baso # (Auto) 0.0 WBC Differential . Differential Comment Auto diff final PT INR APTT POC Sodium Sodium 136 POC Potassium Potassium 3.3 L D POC Chloride Chloride 103 D Carbon Dioxide 23.4 Anion Gap 10 POC BUN BUN 20 H Creatinine 1.53 H POC Creatinine Estimated GFR 34 L POC Glucose Random Glucose 201 H Hemoglobin A1c 6.7 H Lactic Acid Calcium 8.2 L Magnesium Total Bilirubin AST ALT Alkaline Phosphatase Total Creatine Kinase 255 H CK-MB (CK-2) Less than 1.0 CK-MB (CK-2) % 0.4 Troponin I Less than 0.02 L Total Protein Albumin Triglycerides 120 Cholesterol 115 L LDL Cholesterol, Calc 34 HDL Cholesterol 56.6 Cholesterol/HDL Ratio 2.03 Urine Color Urine Clarity Urine pH Ur Specific [place] Urine Protein Urine Glucose (UA) Urine Ketones Urine Occult Blood Urine Nitrate Urine Bilirubin Urine Urobilinogen Ur Leukocyte Esterase Urine RBC Urine WBC Ur Squamous Epith Cells Micro UA Comment Urine Culture Comments Blood Type 03/01/18 03/01/18 03/01/18 12:38 16:27 16:42 WBC 6.1 D RBC 4.10 Hgb 12.7 POC Hgb (Calc) Hct 38.1 POC Hct MCV 93.0 MCH 30.9 MCHC 33.3 RDW 13.6 Plt Count 172 MPV 8.3 Neut % (Auto) 92.1 H Lymph % (Auto) 3.1 L [place] % (Auto) 3.6 Eos % (Auto) 0.2 Baso % (Auto) 1.0 Neut # (Auto) 5.6 Lymph # (Auto) 0.2 L [place] # (Auto) 0.2 Eos # (Auto) 0.0 Baso # (Auto) 0.1 WBC Differential . Differential Comment Auto diff final PT INR APTT POC Sodium Sodium POC Potassium Potassium POC Chloride Chloride Carbon Dioxide Anion Gap POC BUN BUN Creatinine POC Creatinine Estimated GFR POC Glucose 209 H 229 H Random Glucose Hemoglobin A1c Lactic Acid Calcium Magnesium Total Bilirubin AST ALT Alkaline Phosphatase Total Creatine Kinase CK-MB (CK-2) CK-MB (CK-2) % Troponin I Total Protein Albumin Triglycerides Cholesterol LDL Cholesterol, Calc HDL Cholesterol Cholesterol/HDL Ratio Urine Color Urine Clarity Urine pH Ur Specific [place] Urine Protein Urine Glucose (UA) Urine Ketones Urine Occult Blood Urine Nitrate Urine Bilirubin Urine Urobilinogen Ur Leukocyte Esterase Urine RBC Urine WBC Ur Squamous Epith Cells Micro UA Comment Urine Culture Comments Blood Type 03/01/18 03/01/18 16:42 16:42 WBC RBC Hgb POC Hgb (Calc) 11.9 Hct POC Hct 35.0 MCV MCH MCHC RDW Plt Count MPV Neut % (Auto) Lymph % (Auto) [place] % (Auto) Eos % (Auto) Baso % (Auto) Neut # (Auto) Lymph # (Auto) [place] # (Auto) Eos # (Auto) Baso # (Auto) WBC Differential Differential Comment PT INR APTT POC Sodium 135 L Sodium POC Potassium 4.1 Potassium POC Chloride 99 L Chloride Carbon Dioxide Anion Gap POC BUN 22 H BUN Creatinine POC Creatinine 1.5 H Estimated GFR POC Glucose 224 H Random Glucose Hemoglobin A1c Lactic Acid Calcium Magnesium Total Bilirubin AST ALT Alkaline Phosphatase Total Creatine Kinase 397 H CK-MB (CK-2) CK-MB (CK-2) % Troponin I 0.02 Total Protein Albumin Triglycerides Cholesterol LDL Cholesterol, Calc HDL Cholesterol Cholesterol/HDL Ratio Urine Color Urine Clarity Urine pH Ur Specific [place] Urine Protein Urine Glucose (UA) Urine Ketones Urine Occult Blood Urine Nitrate Urine Bilirubin Urine Urobilinogen Ur Leukocyte Esterase Urine RBC Urine WBC Ur Squamous Epith Cells Micro UA Comment Urine Culture Comments Blood Type A Positive Microbiology 02/28/18 19:25 Aerobic Blood Culture - Preliminary Blood - Peripheral No growth in 1 day Anaerobic Blood Culture - Preliminary No growth in 1 day 02/28/18 19:30 Aerobic Blood Culture - Preliminary Blood - Peripheral No growth in 1 day Anaerobic Blood Culture - Preliminary No growth in 1 day Review/Management - Diagnosis (1) Stroke Code(s): I63.9 - Cerebral infarction, unspecified Status: Acute Current Visit: Yes - Review/Management Plan: patient does meet criteria for iv TPA. I did not order CTA due to elevated serum creatinine with NIHSS of 4 and no sign of aphasia or basilar artery stroke Place activase order set, transfer to [facility], post TPA orders. No anticoagulants or antiplatelets for [address] brain in 24 hrs post TPA. Check echo, carotid US.
--- NOTE | 2018-03-01 19:07 | P.CONCC ---
History of Present Illness Service: Critical care medicine Consult date: 03/01/18 Requesting Physician: Luís Harris Reason for Consult: stroke alert receiving TPA Primary Care Provider: UNKNOWN Chief Complaint: Nephroltihiasis, UTI History of Present Illness: 72-year-old female who was admitted to the hospital on 02/28 after her daughter found her on the ground in her hallway at home confused. At baseline patient ambulates independently with unsteady gait and has early dementia with memory issues. When patient's daughter arrived at home on 02/28 around 6:30 PM she found the patient laying in the hallway with abnormal speech and confusion. She was brought to the ER and was found to have a temperature of 102. Head CT was negative. CT abdomen revealed 6 mm right proximal ureter stone with obstruction. [facility] and was evaluated by Dr. Silva from neurology this morning as well as by urology. She was placed on IV cefepime for empiric antibiotic coverage. MRI brain did not show any acute ischemic changes and was suggestive of small vessel disease with cerebral atrophy. This evening patient developed sudden change in his speech and confusion. A stroke alert was called. Head CT was negative for bleed. Dr. Silva evaluated patient and decided to proceed with thrombolysis. Patient was transferred to the ICU and critical care consult was requested by [facility] nurse practitioner. Patient reportedly did not have any deficits in either extremities earlier. When I evaluated the patient she was laying in the ICU bed not in any acute distress. Her speech was garbled and she attempted and answering my questions however her responses were unrelated words. She could not tell me the date month or year. She knew she was in the hospital when I told her that however when I asked her she could not give me the name of the hospital however was using unrelated words and was having difficulty finding words.. She denied any chest pain or shortness of breath. She was noted to have a temperature spike of 102 following arrival to the ICU. Review of Systems All other systems reviewed negative except as stated in HPI PMFSH - History History Provided By: Patient, Family Member - Medical History Medical History: Medical History (Last Reviewed 03/01/18 @ 15:21 by Patricia Luna) DVT (deep venous thrombosis) HTN (hypertension) Surgical history unknown UTI (urinary tract infection) - Tobacco History Second Hand Smoke Exposure: No Smoking Status: Never smoker Tobacco Type: Cigarettes - Alcohol History How Often Do You Have a Drink Containing Alcohol: Never - Substance Use History Substance History: No History of Abuse - Travel History Recent Travel in the [place] Within the Last 8 Weeks: No Recent Travel Out of the Country Within the Last 8 Weeks: No - Immunization History Tetanus Immunization: >5 Years Hx Influenza Vaccine This Season: No Medications and Allergies Active Medications: Active Medications Acetaminophen (Tylenol) 650 mg PO Q4H PRN PRN Reason: Temp > 100.4 Al Hydroxide/Mg Hydroxide (Milk Of Magnesia Liq) 30 ml PO Q12H PRN PRN Reason: Mild Constipation Bisacodyl (Dulcolax Supp) 10 mg RECTAL DAILY PRN PRN Reason: SEVERE CONSITIPATION Dextrose (D50w Vial) 50 ml IV.PUSH UNSCH PRN PRN Reason: PER HYPOGLYCEMIA PROTOCOL Enalaprilat (Vasotec Inj) 1.25 mg IV.PUSH Q4H PRN PRN Reason: For SBP > 220 or DBP > 120 Escitalopram Oxalate (Lexapro) 20 mg PO DAILY [facility] Last Admin: 03/01/18 10:02 Dose: 20 mg Glucagon (Glucagon Inj) 1 mg OTHER PRN PRN PRN Reason: for Hypoglycemia Protocol Sodium Chloride (Ns Inj) 1,000 mls @ 100 mls/hr IV.CONT .Q10H [facility] Last Admin: 03/01/18 10:00 Dose: 84 mls/hr Cefepime HCl 2,000 mg/ Sodium (Chloride) 100 mls @ 200 mls/hr IV.SIG Q12H [facility] Last Admin: 03/01/18 10:00 Dose: 200 mls/hr Insulin Human Regular (Novolin R Correctional Sugar Inj) 0 units SQ ACHS [facility]; Protocol Last Admin: 03/01/18 13:51 Dose: 3 units Lactulose (Lactulose Liq) 30 ml PO DAILY PRN PRN Reason: SEVERE CONSITIPATION Ondansetron HCl (Zofran Inj) 4 mg IV.PUSH Q6H PRN PRN Reason: NAUSEA OR VOMITING Pantoprazole Sodium (Protonix) 40 mg PO DAILY [facility] Last Admin: 03/01/18 10:01 Dose: 40 mg Pravastatin Sodium (Pravachol) 40 mg PO DAILY [facility] Last Admin: 03/01/18 10:00 Dose: 40 mg Pregabalin (Lyrica) 25 mg PO TID [facility] Last Admin: 03/01/18 14:45 Dose: 25 mg Ropinirole HCl (Requip) 0.5 mg PO HS [facility] Ropinirole HCl (Requip) 0.25 mg PO TIDAC [facility] Sennosides (Senokot) 17.2 mg PO Q12H PRN PRN Reason: Moderate Constipation Sodium Chloride (Ns Flush) 2 ml IV.FLUSH BID [facility] Last Admin: 03/01/18 10:02 Dose: Not Given Sodium Chloride (Ns Flush) 2 ml IV.FLUSH PRN PRN PRN Reason: FLUSH AFTER USING IV ACCESS Allergies Allergy/AdvReac Type Severity Reaction Status Date / Time latex Allergy Severe Rash Verified 02/28/18 19:51 phenobarbital Allergy Severe Dizziness Verified 02/28/18 19:51 Home Medications Medication Instructions Recorded Confirmed Type escitalopram oxalate [Lexapro] 20 mg PO DAILY 02/28/18 02/28/18 History losartan 25 mg PO DAILY 02/28/18 02/28/18 History metformin 1,000 mg PO BID 02/28/18 02/28/18 History metoprolol succinate 25 mg PO DAILY 02/28/18 02/28/18 History nortriptyline 50 mg PO HS 02/28/18 02/28/18 History omeprazole 40 mg PO DAILY 02/28/18 02/28/18 History pravastatin 40 mg PO DAILY 02/28/18 02/28/18 History pregabalin [Lyrica] 25 mg PO TID 02/28/18 02/28/18 History ropinirole 0.25 mg PO 5 TIMES A DAY 02/28/18 02/28/18 History sertraline 50 mg PO DAILY 02/28/18 02/28/18 History trazodone 50 mg PO DAILY 02/28/18 02/28/18 History Physical Exam Vital signs: Vital Signs 02/28/18 19:11 02/28/18 23:50 02/28/18 23:58 Temperature 99.4 F Pulse Rate 113 H 103 H 103 H Respiratory Rate 18 16 Blood Pressure 129/59 L 169/71 H Pulse Oximetry 94 L 93 L 03/01/18 00:00 03/01/18 03:46 03/01/18 04:00 Temperature 100 F H 103.9 F H 100.6 F H Pulse Rate 112 H 123 H 101 H Respiratory Rate 16 30 H 20 Blood Pressure 106/71 129/60 103/50 L Pulse Oximetry 99 94 L 03/01/18 04:37 03/01/18 08:00 03/01/18 08:40 Temperature 97.3 F L Pulse Rate 81 Respiratory Rate 20 16 Blood Pressure 89/48 L 110/60 Pulse Oximetry 97 03/01/18 12:00 03/01/18 16:00 Temperature 97.6 F 99.5 F Pulse Rate 77 116 H Respiratory Rate 18 24 Blood Pressure 110/84 181/82 H Pulse Oximetry 95 Intake & Output 02/28/18 03/01/18 03/01/18 18:59 06:59 18:59 Intake Total 600 / 600 1000 / 1000 Balance 600 / 600 1000 / 1000 Weight 73.482 kg Intake: IV 600 / 600 1000 / 1000 NS Inj 1,000 ML @ 100 mls/hr IV 1000 / 1000 .CONT .Q10H [facility] Rx#:[id number] Ofirmev Inj 1,000 mg In 100 ml 0 / 0 @ 400 mls/hr IV.SIG NOW ONE Rx# :[id number] Maxipime Inj 2,000 MG In NS Inj 100 / 100 100 ML @ 200 mls/hr IV.SIG ONCE ONE Rx#:[id number] NS Inj 500 ML @ Wide Open IV. 500 / 500 SIG BOLUS ONE Rx#:[id number] Narrative: HEENT/Neuro: No pallor or icterus, tongue moist, [place]IZ[place]ET, Awake alert, following commands. Cranial nerves appear intact (2-12) word finding difficulty on answering questions and speaking unrelated words. Moving all 4 extremities with grade 5 power in bilateral upper and lower extremities. No facial weakness noted. Neck: No JVD Chest/pulmonary: CTA bilaterally Cardiovascular: S1-S2 regular no gallop or murmur GI/abdomen: Soft, nontender, bowel sounds present Extremities: Warm bilaterally, no edema Assessment and Plan - Assessment and Plan Plan: 72-year-old female with: Altered mental status with speech disturbance with suspected ischemic stroke Fever with possible sepsis Hypotension Nephrolithiasis Possible UTI History of early dementia Restless leg syndrome Diabetes mellitus with peripheral neuropathy History of hypertension Plan: Neuro: Continue neuro checks per protocol. Receiving IV TPA per Dr. Silva from neurology who is already evaluated patient following stroke alert. Repeat head CT tomorrow per stroke protocol. Continue Requip for restless leg syndrome. Continue Lyrica for neuropathy. Cardiovascular: 1 L normal saline bolus for hypotension. IV fluids. Hold all antihypertensives in view of borderline blood pressure. Continue statin Pulmonary: Supplemental O2 as needed to keep O2 sat greater than 94%. Bronchodilators as needed. GI/liver: N.p.o. for now until swallow evaluation. Renal/: Strict intake output, monitor and replete electrolytes, follow BUN/ creatinine. Being followed by urology for ureteral stone with hydronephrosis. She was scheduled for a ureteral stent for tomorrow however this will have to be postponed in view of thrombolysis for TPA. ID: Continue empiric cefepime, follow-up cultures. Endocrine: SSI for glycemic control. Heme: Follow CBC Prophylaxis: SCDs. Lovenox when okay with neurology Critical care will continue to follow.
[2018-03-02 04:39] LABS: Baso % (Auto) 0.5 % (0.0-2.0); Eos % (Auto) 0.6 % (0.0-4.0); Hematocrit 36.4 % (35.0-46.0); Lymph # (Auto) 0.6 th/mm3 (1.0-4.8); Lymph % (Auto) 7.6 % (9.0-44.0); Mean Corpuscular HGB Conc 33.1 % (32.0-36.0); Mean Corpuscular Hemoglobin 30.7 pg (27.0-34.0); Mean Corpuscular Volume 92.9 fL (80.0-100.0); Mean Platelet Volume 8.7 fL (7.0-11.0); Mono # (Auto) 0.5 th/mm3 (0.0-0.9); Mono % (Auto) 7.1 % (0.0-8.0); Neut # (Auto) 6.3 th/mm3 (1.8-7.7); Neut % (Auto) 84.2 % (16.0-70.0); Platelet Count 165 th/mm3 (150-450); Red Blood Count 3.92 mil/mm3 (4.00-5.30); Red Cell Distribution Width 13.6 % (11.6-17.2); White Blood Count 7.4 th/mm3 (4.0-11.0)
[2018-03-02 05:01] LABS: Calcium 7.6 mg/dL (8.5-10.1); Carbon Dioxide 22.2 meq/L (21.0-32.0)
[2018-03-02 05:04] LABS: Chol/HDL Ratio 2.02 Ratio; HDL Cholesterol 43.5 mg/dL (40.0-60.0)
--- NOTE | 2018-03-02 07:57 | P.PNCC ---
Subjective Subjective Remarks/Hospital Course: 72-year-old female who was admitted to the hospital on 02/28 after her daughter found her on the ground in her hallway at home confused. At baseline patient ambulates independently with unsteady gait and has early dementia with memory issues. When patient's daughter arrived at home on 02/28 around 6:30 PM she found the patient laying in the hallway with abnormal speech and confusion. She was brought to the ER and was found to have a temperature of 102. Head CT was negative. CT abdomen revealed 6 mm right proximal ureter stone with obstruction. Patient was admitted by [facility] and was evaluated by Dr. Silva from neurology this morning as well as by urology. She was placed on IV cefepime for empiric antibiotic coverage. MRI brain did not show any acute ischemic changes and was suggestive of small vessel disease with cerebral atrophy. This evening patient developed sudden change in his speech and confusion. A stroke alert was called. Head CT was negative for bleed. Dr. Silva evaluated patient and decided to proceed with thrombolysis. Patient was transferred to the ICU and critical care consult was requested by [facility] nurse practitioner. Patient reportedly did not have any deficits in either extremities earlier. When I evaluated the patient she was laying in the ICU bed not in any acute distress. Her speech was garbled and she attempted and answering my questions however her responses were unrelated words. She could not tell me the date month or year. She knew she was in the hospital when I told her that however when I asked her she could not give me the name of the hospital however was using unrelated words and was having difficulty finding words.. She denied any chest pain or shortness of breath. She was noted to have a temperature spike of 102 following arrival to the ICU. 03/02: Speech has improved dramatically following TPA. Enunciation is clear this morning and she finds words readily. Protects airway and swallows normally. Blood pressure well controlled. No evidence of any bleeding. Objective Vital Signs / I&O: Vital Signs 03/01/18 08:00 03/01/18 08:40 03/01/18 12:00 Temperature 97.3 F L 97.6 F Pulse Rate 81 77 Respiratory Rate 16 18 Blood Pressure 89/48 L 110/60 110/84 Pulse Oximetry 97 95 03/01/18 16:00 03/01/18 17:36 03/01/18 17:51 Temperature 99.5 F 102.3 F H Pulse Rate 116 H 114 H 114 H Respiratory Rate 24 36 H 36 H Blood Pressure 181/82 H 108/52 L 103/51 L Pulse Oximetry 99 99 03/01/18 18:06 03/01/18 18:21 03/01/18 18:36 Temperature Pulse Rate 110 H 110 H Respiratory Rate 21 21 21 Blood Pressure 103/51 L 93/53 L 92/55 L Pulse Oximetry 96 96 96 03/01/18 18:51 03/01/18 20:00 03/01/18 22:24 Temperature 99.5 F Pulse Rate 104 H 100 H Respiratory Rate 25 H 21 Blood Pressure 97/55 L 101/51 L Pulse Oximetry 96 98 100 03/02/18 00:00 03/02/18 04:00 Temperature 99.1 F 97.8 F Pulse Rate 80 80 Respiratory Rate 18 16 Blood Pressure 98/56 L 113/55 L Pulse Oximetry 97 98 Intake & Output 03/01/18 03/02/18 03/02/18 18:59 06:59 18:59 Intake Total 1100 / 1100 1200 / 1200 Output Total 750 / 750 Balance 1100 / 1100 450 / 450 Weight 74.5 kg Intake: IV 1100 / 1100 1200 / 1200 NS Inj 1,000 ML @ 100 mls/hr IV 1000 / 1000 1000 / 1000 .CONT .Q10H BEENA Rx#:[id number] Ofirmev Inj 1,000 mg In 100 ml 100 / 100 @ 400 mls/hr IV.SIG Q6H PRN Rx# :[id number] Maxipime Inj 2,000 MG In NS Inj 100 / 100 100 / 100 100 ML @ 200 mls/hr IV.SIG Q12H BEENA Rx#:[id number] Oral 0 / 0 0 / 0 Output: Urine Amount (Catheter) 750 / 750 Indwelling Urethral Catheter 750 / 750 Other: Date of Last Bowel Movement 03/02/18 # Bowel Movements 1 Weight On Admission 73.4 kg Result Diagrams: 03/02/18 03:10 03/02/18 03:10 Objective Remarks: Narrative: HEENT/Neuro: No pallor or icterus, tongue moist, ELIZABET, Awake alert, following commands. Pupillary response, extraocular movements, tongue protrusion, shoulder shrug, smile, grimace intact and symmetrical moving all 4 extremities with grade 5 power in bilateral upper and lower extremities. Neck: No JVD Chest/pulmonary: CTA bilaterally, comfortable respiratory pattern Cardiovascular: S1-S2 regular, soft systolic murmur upper right sternal border, no JVD. No carotid bruits. GI/abdomen: Soft, nontender, bowel sounds present, no guarding Extremities: Warm bilaterally, no edema, well-perfused. Assessment and Plan - Assessment and Plan Plan: 72-year-old female with: Altered mental status with speech disturbance with suspected ischemic stroke Fever with possible sepsis Hypotension Nephrolithiasis Possible UTI History of early dementia Restless leg syndrome Diabetes mellitus with peripheral neuropathy History of hypertension Plan: Neuro: Continue neuro checks per protocol. Received IV TPA per Dr. Silva from neurology who is already evaluated patient following stroke alert. Repeat head CT tomorrow per stroke protocol. Continue Requip for restless leg syndrome. Continue Lyrica for neuropathy. Cardiovascular: 1 L normal saline bolus for hypotension. IV fluids. Hold all antihypertensives in view of borderline blood pressure. Continue statin Pulmonary: Supplemental O2 as needed to keep O2 sat greater than 94%. Bronchodilators as needed. GI/liver: N.p.o. for now until swallow evaluation. Renal/: Strict intake output, monitor and replete electrolytes, follow BUN/ creatinine. Being followed by urology for ureteral stone with hydronephrosis. She was scheduled for a ureteral stent for tomorrow however this will have to be postponed in view of thrombolysis for TPA. ID: Continue empiric cefepime, follow-up cultures. Endocrine: SSI for glycemic control. Heme: Follow CBC Prophylaxis: SCDs. Lovenox when okay with neurology Overall impression: This woman had an impressive improvement and speech following TPA therapy. Presently her speech and swallow appear normal. The remainder of her neurologic exam is grossly normal. Continue gentle hydration.
[2018-03-02] MEDS ORDERED: Sod Chloride 0.9% Inj 1,000 ML IV.SIG ONE (07:58)
[2018-03-02] MEDS: Pregabalin 25 MG Capsule PO SCH ×3 (09:30→17:26)
[2018-03-02] MEDS: Insulin NovoLIN Regular Correctional Sugar Inj SQ SCH ×4 (09:31→21:20)
[2018-03-02] MEDS: Sod Chloride 0.9% Inj 1,000 ML IV.CONT SCH ×3 (09:32→16:22)
--- NOTE | 2018-03-02 10:16 | US ---
EXAM DATE: 03/02/2018 9:20 AM EDT AGE/SEX: 72 years / Female INDICATIONS: Altered mental status. CLINICAL DATA: This is the patient's initial encounter. Patient reports that signs and symptoms have been present for 2 days and indicates a pain score of 0/10. MEDICAL/SURGICAL HISTORY: Deep venous thrombosis. Hypertension. UTI. None. COMPARISON: No prior exams available for comparison. VELOCITY PARAMETERS: ICA/CCA Ratio: Right 1.7 , Left 1.2 ICA: Right 119 cm/sec, Left 92 cm/sec CCA: Right 69 cm/sec, Left 76 cm/sec ECA: Right 90 cm/sec, Left 74 cm/sec Vertebral: Right 54 cm/sec antegrade, Left 59 cm/sec antegrade FINDINGS: Right Carotid: Mild arteriosclerotic plaque is visualized.The waveforms are within normal limits. Left Carotid: Mild arteriosclerotic plaque is visualized. The waveforms are within normal limits. Other: None. CONCLUSION: Right Internal Carotid Artery: No evidence of hemodynamically significant lesion with less than 50% s tenosis. Left Internal Carotid Artery: No evidence of hemodynamically significant lesion with less than 50% st enosis. Electronically signed by: Ramiro Woods MD 03/02/2018 10:15 AM EDT
--- NOTE | 2018-03-02 11:58 | ECG ---
Date Performed: 02/28/2018 Time Performed: 21:15:06 PTAGE: 72 years EKG: SINUS TACHYCARDIA BORDERLINE LEFT AXIS DEVIATION LEFT VENTRICULAR HYPERTROPHY BY VOLTAGE ST -T CHANGES NONSPECIFIC, BUT COULD BE DUE TO LVH ABNORMAL ECG Compared to PREVIOUS TRACING , these changes are new. PREVIOUS TRACIN10/20/2015 17.49 DOCTOR: Dedrick Dill Interpretating Date/Time 03/02/2018 11:58:16
--- NOTE | 2018-03-02 13:06 | P.PNURO ---
Subjective Patient symptoms today: 72y.o F with 6mm obstructing right ureteral stone and ischemic stroke. Received TPA, Neurology is following. Post TPA her symptoms are improving significantly. She also currently has no c/o. denies any flank pain, no fever, no hematuria. Wiley is in place draining well. Objective Vital Signs: Vital Signs 03/01/18 16:00 03/01/18 17:36 03/01/18 17:51 Temperature 99.5 F 102.3 F H Pulse Rate 116 H 114 H 114 H Respiratory Rate 24 36 H 36 H Blood Pressure 181/82 H 108/52 L 103/51 L Pulse Oximetry 99 99 03/01/18 18:06 03/01/18 18:21 03/01/18 18:36 Temperature Pulse Rate 110 H 110 H Respiratory Rate 21 21 21 Blood Pressure 103/51 L 93/53 L 92/55 L Pulse Oximetry 96 96 96 03/01/18 18:51 03/01/18 20:00 03/01/18 22:24 Temperature 99.5 F Pulse Rate 104 H 100 H Respiratory Rate 25 H 21 Blood Pressure 97/55 L 101/51 L Pulse Oximetry 96 98 100 03/02/18 00:00 03/02/18 04:00 03/02/18 08:00 Temperature 99.1 F 97.8 F 98.3 F Pulse Rate 80 80 85 Respiratory Rate 18 16 20 Blood Pressure 98/56 L 113/55 L 126/59 L Pulse Oximetry 97 98 93 L Intake & Output 03/01/18 03/02/18 03/02/18 18:59 06:59 18:59 Intake Total 1100 / 1100 1200 / 1200 2159.5 / 2159.5 Output Total 750 / 750 Balance 1100 / 1100 450 / 450 2159.5 / 2159.5 Weight 74.5 kg Intake: IV 1100 / 1100 1200 / 1200 2159.5 / 2159.5 NS Inj 1,000 ML @ 100 mls/hr IV 1000 / 1000 1000 / 1000 1000 / 1000 .CONT .Q10H BEENA Rx#:[id number] Ofirmev Inj 1,000 mg In 100 ml 100 / 100 @ 400 mls/hr IV.SIG Q6H PRN Rx# :[id number] Maxipime Inj 2,000 MG In NS Inj 100 / 100 100 / 100 100 / 100 100 ML @ 200 mls/hr IV.SIG Q12H BEENA Rx#:[id number] NS Inj 1,000 ML @ Wide Open IV. 1000 / 1000 SIG BOLUS ONE Rx#:[id number] Oral 0 / 0 0 / 0 Output: Urine Amount (Catheter) 750 / 750 Indwelling Urethral Catheter 750 / 750 Other: Date of Last Bowel Movement 03/02/18 03/02/18 # Bowel Movements 1 Weight On Admission 73.4 kg Result Diagrams: 03/02/18 03:10 03/02/18 03:10 Imaging: Impressions Head CT 03/01/18 16:44 CONCLUSION: 1. Senescent changes without acute intracranial abnormality. . Findings were personally discussed with Dr. Silva at 1702 p.m. Carotid Doppler Study 03/02/18 00:00 CONCLUSION: Right Internal Carotid Artery: No evidence of hemodynamically significant lesion with less than 50% stenosis. Left Internal Carotid Artery: No evidence of hemodynamically significant lesion with less than 50% stenosis. 02/28/18 CT scan CONCLUSION: 1. Obstructive uropathy on the right side due to a 6 mm calcified stone in the proximal right ureter. Medications and IVs: Active Medications Generic Name Dose Route Start Last Admin Trade Name Freq PRN Reason Stop Dose Admin Acetaminophen 650 mg 02/28/18 22:28 Tylenol PO Q4H PRN Temp > 100.4 Al Hydroxide/Mg Hydroxide 30 ml 02/28/18 22:28 Milk Of Magnesia Liq PO Q12H PRN Mild Constipation Bisacodyl 10 mg 02/28/18 22:28 Dulcolax Supp RECTAL DAILY PRN SEVERE CONSITIPATION Dextrose 50 ml 02/28/18 22:26 D50w Vial IV.PUSH UNSCH PRN PER HYPOGLYCEMIA PROTOCOL Enalaprilat 1.25 mg 02/28/18 23:12 Vasotec Inj IV.PUSH Q4H PRN For SBP > 220 or DBP > 120 Escitalopram Oxalate 20 mg 03/01/18 09:00 03/02/18 09:30 Lexapro PO 20 mg DAILY BEENA Administration Glucagon 1 mg 02/28/18 22:26 Glucagon Inj OTHER PRN PRN for Hypoglycemia Protocol Sodium Chloride 1,000 mls @ 100 mls/hr 02/28/18 22:00 03/02/18 12:47 Ns Inj IV.CONT 100 mls/hr .Q10H BEENA Administration Cefepime HCl 2,000 mg/ Sodium 100 mls @ 200 mls/hr 03/01/18 09:00 03/02/18 10 :13 Chloride IV.SIG Infused Q12H BEENA Infusion Acetaminophen 1,000 mg in 100 mls @ 400 mls/hr 03/01/18 19:31 03/01/18 21:13 Ofirmev Inj IV.SIG Infused Q6H PRN Infusion TEMPERATURE > 101 F /PAIN 1-10 Insulin Human Regular 0 units 03/01/18 08:00 03/02/18 12:44 Novolin R Correctional Sugar Inj SQ Not Given ACHS [facility] Protocol Lactulose 30 ml 02/28/18 22:28 Lactulose Liq PO DAILY PRN SEVERE CONSITIPATION Ondansetron HCl 4 mg 02/28/18 22:28 Zofran Inj IV.PUSH Q6H PRN NAUSEA OR VOMITING Pantoprazole Sodium 40 mg 03/01/18 09:00 03/02/18 09:30 Protonix PO 40 mg DAILY BEENA Administration Pravastatin Sodium 40 mg 03/01/18 09:00 03/02/18 09:30 Pravachol PO 40 mg DAILY BEENA Administration Pregabalin 25 mg 03/01/18 09:00 03/02/18 12:46 Lyrica PO 25 mg TID BEENA Administration Ropinirole HCl 0.5 mg 03/01/18 21:00 03/01/18 20:50 Requip PO 0.5 mg HS BEENA Administration Ropinirole HCl 0.25 mg 03/01/18 17:00 03/02/18 12:46 Requip PO 0.25 mg TIDAC BEENA Administration Sennosides 17.2 mg 02/28/18 22:28 Senokot PO Q12H PRN Moderate Constipation Sodium Chloride 2 ml 03/01/18 09:00 03/02/18 09:30 Ns Flush IV.FLUSH 2 ml BID BEENA Administration Sodium Chloride 2 ml 02/28/18 23:12 Ns Flush IV.FLUSH PRN PRN FLUSH AFTER USING IV ACCESS Objective Remarks: NAD RRR Lungs are clear Wiley in place Assessment and Plan - Plan - Continue care as per primary team/neuro team Pt is asymptomatic Urologywise, no intervention needed - She has a chance to pass that stone on her own - Continue IV fluids as per primary team. Flomax daily. Pain control prn - Keep wiley as needed to monitor I&O - Renal US to f/u on hydro today or tomorrow - Pt to follow up with Urology ( Dr Varela) as outpt after d/c Discussed Condition With: Pt's RN And with Dr Varela attending who agrees with this plan
--- NOTE | 2018-03-02 15:33 | P.PNNEU ---
Subjective Subjective Comments: Pt speech has returned to normal Denies any focal weakness or numbness Active Medications: Active Medications Acetaminophen (Tylenol) 650 mg PO Q4H PRN PRN Reason: Temp > 100.4 Al Hydroxide/Mg Hydroxide (Milk Of Magnesia Liq) 30 ml PO Q12H PRN PRN Reason: Mild Constipation Bisacodyl (Dulcolax Supp) 10 mg RECTAL DAILY PRN PRN Reason: SEVERE CONSITIPATION Dextrose (D50w Vial) 50 ml IV.PUSH UNSCH PRN PRN Reason: PER HYPOGLYCEMIA PROTOCOL Enalaprilat (Vasotec Inj) 1.25 mg IV.PUSH Q4H PRN PRN Reason: For SBP > 220 or DBP > 120 Escitalopram Oxalate (Lexapro) 20 mg PO DAILY PENDING SALE TO [facility] Last Admin: 03/02/18 09:30 Dose: 20 mg Glucagon (Glucagon Inj) 1 mg OTHER PRN PRN PRN Reason: for Hypoglycemia Protocol Sodium Chloride (Ns Inj) 1,000 mls @ 100 mls/hr IV.CONT .Q10H PENDING SALE TO [facility] Last Admin: 03/02/18 12:47 Dose: 100 mls/hr Cefepime HCl 2,000 mg/ Sodium (Chloride) 100 mls @ 200 mls/hr IV.SIG Q12H PENDING SALE TO [facility] Last Infusion: 03/02/18 10:13 Dose: Infused Acetaminophen (Ofirmev Inj) 1,000 mg in 100 mls @ 400 mls/hr IV.SIG Q6H PRN PRN Reason: TEMPERATURE > 101 F /PAIN 1-10 Last Infusion: 03/01/18 21:13 Dose: Infused Insulin Human Regular (Novolin R Correctional Sugar Inj) 0 units SQ ACHS PENDING SALE TO [facility]; Protocol Last Admin: 03/02/18 12:44 Dose: Not Given Lactulose (Lactulose Liq) 30 ml PO DAILY PRN PRN Reason: SEVERE CONSITIPATION Ondansetron HCl (Zofran Inj) 4 mg IV.PUSH Q6H PRN PRN Reason: NAUSEA OR VOMITING Pantoprazole Sodium (Protonix) 40 mg PO DAILY PENDING SALE TO [facility] Last Admin: 03/02/18 09:30 Dose: 40 mg Pravastatin Sodium (Pravachol) 40 mg PO DAILY PENDING SALE TO [facility] Last Admin: 03/02/18 09:30 Dose: 40 mg Pregabalin (Lyrica) 25 mg PO TID PENDING SALE TO [facility] Last Admin: 03/02/18 12:46 Dose: 25 mg Ropinirole HCl (Requip) 0.5 mg PO HS PENDING SALE TO [facility] Last Admin: 03/01/18 20:50 Dose: 0.5 mg Ropinirole HCl (Requip) 0.25 mg PO TIDAC PENDING SALE TO [facility] Last Admin: 03/02/18 12:46 Dose: 0.25 mg Sennosides (Senokot) 17.2 mg PO Q12H PRN PRN Reason: Moderate Constipation Sodium Chloride (Ns Flush) 2 ml IV.FLUSH BID PENDING SALE TO [facility] Last Admin: 03/02/18 09:30 Dose: 2 ml Sodium Chloride (Ns Flush) 2 ml IV.FLUSH PRN PRN PRN Reason: FLUSH AFTER USING IV ACCESS Allergies/Adverse Reactions: Allergies Allergy/AdvReac Type Severity Reaction Status Date / Time latex Allergy Severe Rash Verified 02/28/18 19:51 phenobarbital Allergy Severe Dizziness Verified 02/28/18 19:51 Physical Exam Vital signs: Vital Signs 03/01/18 16:00 03/01/18 17:36 03/01/18 17:51 Temperature 99.5 F 102.3 F H Pulse Rate 116 H 114 H 114 H Respiratory Rate 24 36 H 36 H Blood Pressure 181/82 H 108/52 L 103/51 L Pulse Oximetry 99 99 03/01/18 18:06 03/01/18 18:21 03/01/18 18:36 Temperature Pulse Rate 110 H 110 H Respiratory Rate 21 21 21 Blood Pressure 103/51 L 93/53 L 92/55 L Pulse Oximetry 96 96 96 03/01/18 18:51 03/01/18 20:00 03/01/18 22:24 Temperature 99.5 F Pulse Rate 104 H 100 H Respiratory Rate 25 H 21 Blood Pressure 97/55 L 101/51 L Pulse Oximetry 96 98 100 03/02/18 00:00 03/02/18 04:00 03/02/18 08:00 Temperature 99.1 F 97.8 F 98.3 F Pulse Rate 80 80 85 Respiratory Rate 18 16 20 Blood Pressure 98/56 L 113/55 L 126/59 L Pulse Oximetry 97 98 93 L 03/02/18 12:00 Temperature 98.1 F Pulse Rate 82 Respiratory Rate 20 Blood Pressure 112/61 Pulse Oximetry 98 Intake & Output 03/01/18 03/02/1818 18:59 06:59 18:59 Intake Total 1100 / 1100 1200 / 1200 2159.5 / 2159.5 Output Total 750 / 750 Balance 1100 / 1100 450 / 450 2159.5 / 2159.5 Weight 74.5 kg Intake: IV 1100 / 1100 1200 / 1200 2159.5 / 2159.5 NS Inj 1,000 ML @ 100 mls/hr IV 1000 / 1000 1000 / 1000 1000 / 1000 .CONT .Q10H BEENA Rx#:[id number] Ofirmev Inj 1,000 mg In 100 ml 100 / 100 @ 400 mls/hr IV.SIG Q6H PRN Rx# :[id number] Maxipime Inj 2,000 MG In NS Inj 100 / 100 100 / 100 100 / 100 100 ML @ 200 mls/hr IV.SIG Q12H BEENA Rx#:[id number] NS Inj 1,000 ML @ Wide Open IV. 1000 / 1000 SIG BOLUS ONE Rx#:[id number] Oral 0 / 0 0 / 0 Output: Urine Amount (Catheter) 750 / 750 Indwelling Urethral Catheter 750 / 750 Other: Date of Last Bowel Movement 03/02/18 03/02/18 # Bowel Movements 1 Weight On Admission 73.4 kg - Routine Neurological Exam alert, speech normal CN intact MOTOR 5/5 BUE and BLE - Urinary Catheter Management Indwelling Urethral Catheter Cath placed during this visit: no Objective Laboratory Results - last 24 hr 03/01/18 03/01/18 03/01/18 16:27 16:42 16:42 WBC 6.1 D RBC 4.10 Hgb 12.7 POC Hgb (Calc) Hct 38.1 POC Hct MCV 93.0 MCH 30.9 MCHC 33.3 RDW 13.6 Plt Count 172 MPV 8.3 Neut % (Auto) 92.1 H Lymph % (Auto) 3.1 L Stanley % (Auto) 3.6 Eos % (Auto) 0.2 Baso % (Auto) 1.0 Neut # (Auto) 5.6 Lymph # (Auto) 0.2 L Stanley # (Auto) 0.2 Eos # (Auto) 0.0 Baso # (Auto) 0.1 WBC Differential . Differential Comment Auto diff final PT 10.9 INR 1.1 APTT 28.8 Fibrinogen 681 H POC Sodium Sodium POC Potassium Potassium POC Chloride Chloride Carbon Dioxide Anion Gap POC BUN BUN Creatinine POC Creatinine Estimated GFR POC Glucose 229 H Random Glucose Calcium Total Creatine Kinase CK-MB (CK-2) CK-MB (CK-2) % Troponin I Triglycerides Cholesterol LDL Cholesterol, Calc HDL Cholesterol Cholesterol/HDL Ratio Blood Type Antibody Screen 03/01/18 03/01/18 03/01/18 16:42 16:42 21:07 WBC RBC Hgb POC Hgb (Calc) 11.9 Hct POC Hct 35.0 MCV MCH MCHC RDW Plt Count MPV Neut % (Auto) Lymph % (Auto) Stanley % (Auto) Eos % (Auto) Baso % (Auto) Neut # (Auto) Lymph # (Auto) Stanley # (Auto) Eos # (Auto) Baso # (Auto) WBC Differential Differential Comment PT INR APTT Fibrinogen POC Sodium 135 L Sodium POC Potassium 4.1 Potassium POC Chloride 99 L Chloride Carbon Dioxide Anion Gap POC BUN 22 H BUN Creatinine POC Creatinine 1.5 H Estimated GFR POC Glucose 224 H 152 H Random Glucose Calcium Total Creatine Kinase 397 H CK-MB (CK-2) 2.0 CK-MB (CK-2) % 0.5 Troponin I 0.02 Triglycerides Cholesterol LDL Cholesterol, Calc HDL Cholesterol Cholesterol/HDL Ratio Blood Type A Positive Antibody Screen Negative 03/02/18 03/02/18 03:10 03:10 WBC 7.4 RBC 3.92 L Hgb 12.0 POC Hgb (Calc) Hct 36.4 POC Hct MCV 92.9 MCH 30.7 MCHC 33.1 RDW 13.6 Plt Count 165 MPV 8.7 Neut % (Auto) 84.2 H Lymph % (Auto) 7.6 L Stanley % (Auto) 7.1 Eos % (Auto) 0.6 Baso % (Auto) 0.5 Neut # (Auto) 6.3 Lymph # (Auto) 0.6 L Stanley # (Auto) 0.5 Eos # (Auto) 0.0 Baso # (Auto) 0.0 WBC Differential . Differential Comment Auto diff final PT INR APTT Fibrinogen POC Sodium Sodium 140 POC Potassium Potassium 4.0 POC Chloride Chloride 109 H Carbon Dioxide 22.2 Anion Gap 9 POC BUN BUN 21 H Creatinine 1.35 H POC Creatinine Estimated GFR 39 L POC Glucose Random Glucose 123 H Calcium 7.6 L Total Creatine Kinase CK-MB (CK-2) CK-MB (CK-2) % Troponin I Triglycerides 111 Cholesterol 88 L LDL Cholesterol, Calc 22 HDL Cholesterol 43.5 Cholesterol/HDL Ratio 2.02 Blood Type Antibody Screen Microbiology 02/28/18 19:25 Aerobic Blood Culture - Preliminary Blood - Peripheral No growth in 2 days Anaerobic Blood Culture - Preliminary No growth in 2 days 02/28/18 19:30 Aerobic Blood Culture - Preliminary Blood - Peripheral No growth in 2 days Anaerobic Blood Culture - Preliminary No growth in 2 days Review/Management - Diagnosis (1) Stroke Code(s): I63.9 - Cerebral infarction, unspecified Status: Acute Current Visit: Yes - Review/Management Plan: Stroke sx resolved after tpa. Will check CT brain at 24 hour jihan post TPA. If CT without hemorrhage will start on plavix since she was previously on aspirin. She has a history of LE blood clot which she states was arterial many years ago. THerefore, will check labs to r/o hypercoagulable state.
--- NOTE | 2018-03-02 18:15 | CT ---
EXAM DATE: 03/02/2018 5:59 PM EDT AGE/SEX: 72 years / Female INDICATIONS: Altered mental status. CLINICAL DATA: This is the patient's initial encounter. Patient reports that signs and symptoms have been present for 1 day and indicates a pain score of 0/10. MEDICAL/SURGICAL HISTORY: Deep venous thrombosis. Transient ischemic attack. Hypertension. None. RADIATION DOSE: 54.38 CTDI (mGy) COMPARISON: [facility] [place], 03/01/[place]. . TECHNIQUE: CT of the head without contrast. Using automated exposure control and adjustment of the mA and/or kV according to patient size, radiation dose was kept as low as reasonably achievable to ob tain optimal diagnostic quality images. DICOM format image data is available electronically for revi ew and comparison. FINDINGS: Cerebrum: There is mild generalized atrophy and ventricles are normal given the degree of atrophy. M ild periventricular white matter change is present. No midline shift, mass lesion, hemorrhage or acu te infarction. No extraaxial fluid collections are seen. Posterior Fossa: The cerebellum and brainstem demonstrate no acute abnormality. The 4th ventricle is midline. The cerebellopontine angle is within normal limits. Extracranial: The visualized sinuses are clear. Skull: The calvaria is intact. No skull fracture. CONCLUSION: Stable noncontrast head CT. No acute intracranial abnormality is identified. . Electronically signed by: Babar Evans MD 03/02/2018 6:14 PM EDT
[2018-03-02] MEDS: Aspirin 325 MG Tablet PO SCH (19:20)
--- NOTE | 2018-03-02 23:39 | MG ---
cc: Peterson Mukherjee MD Organized EEG at times; however, posterior rhythm showing 6-8 Hz activity 20-50 microvolts. Theta, beta in the frontal channels. Frequent eye movement artifact occurring. Reduced driving with photic stimulation. A couple of small sharp waves, T3, T5, epoch 66. Attenuation background slowing with transition into drowsy state followed by stage I sleep. Mild sharp transient T3, T5, C3, P3, epoch 100. Tiny sharp transients, sharply contoured theta activity in T3, T5. These have variability reactivity. Single lead EKG showing sinus rhythm. INTERPRETATION: Subtle nonspecific change in the left temporal region could be a potential nidus for epileptic activity. Otherwise, normal awake-sleep electroencephalogram. Clinical correlation. MD TOBI Matthews/[place] , 09:18 PM , 09:24 PM
[2018-03-03] MEDS: Sod Chloride 0.9% Inj 1,000 ML IV.CONT SCH ×3 (02:04→22:29)
[2018-03-03] MEDS: Acetaminophen 325 MG Tablet PO PRN ×2 (02:05→12:14)
[2018-03-03] MEDS: Aspirin 325 MG Tablet PO SCH (08:46)
[2018-03-03] MEDS: Insulin NovoLIN Regular Correctional Sugar Inj SQ SCH ×4 (09:01→22:29)
--- NOTE | 2018-03-03 11:20 | P.PN ---
Subjective Interval history: Follow-up visit for AMS suspected ischemic stroke, nephrolithiasis, UTI, diabetes mellitus, and restless leg syndrome. Patient seen and examined resting in bed comfortably, appears to be in no acute distress. She is awake, alert, oriented to place, time, and self. She denies any fevers, chills, nausea , vomiting, diarrhea, or dysuria. She does complain of back pain as well as left shoulder pain, believes this may be related to the way she slept overnight. Patient reports that she has been out of bed and also ambulating with physical therapy. Patient seen and examined once again around 5:15pm. she is seen and examined resting in bed, appears comfortable. She is awake, alert, oriented and following commands with all extremities. Speech is clear, noted dry mouth with no facial weakness or drooping. Daughter who is at bedside is requesting more blankets since patient has been cold throughout the day. Nurses contacted covering neurologist, orders for stat head CT scan by Dr. Mukherjee. Nurse around 7 PM reports low-grade temp, pile of blankets removed, recheck UA, pending head CT scan. Physical Exam Vital signs: Vital Signs 03/02/18 12:00 03/02/18 16:00 03/02/18 20:00 Temperature 98.1 F 98.1 F 98.4 F Pulse Rate 82 80 75 Respiratory Rate 20 19 20 Blood Pressure 112/61 128/64 124/66 Pulse Oximetry 98 97 95 03/02/18 20:42 03/03/18 00:00 03/03/18 01:07 Temperature 97.1 F L Pulse Rate 79 Respiratory Rate 18 18 Blood Pressure 135/64 Pulse Oximetry 98 97 03/03/18 04:00 03/03/18 04:19 03/03/18 07:55 Temperature 98.2 F 98.8 F Pulse Rate 86 85 105 H Respiratory Rate 17 19 Blood Pressure 130/71 125/58 L Pulse Oximetry 98 96 Intake & Output 03/02/18 03/03/18 03/03/18 18:59 06:59 18:59 Intake Total 3059.5 / 3059.5 1100 / 1100 Output Total 1100 / 1100 Balance 1959.5 / 1959.5 1100 / 1100 Weight 71.1 kg Intake: IV 2159.5 / 2159.5 1100 / 1100 NS Inj 1,000 ML @ 100 mls/hr IV 1000 / 1000 1000 / 1000 .CONT .Q10H [facility] Rx#:[id number] Maxipime Inj 2,000 MG In NS Inj 100 / 100 100 / 100 100 ML @ 200 mls/hr IV.SIG Q12H [facility] Rx#:[id number] NS Inj 1,000 ML @ Wide Open IV. 1000 / 1000 SIG BOLUS ONE Rx#:[id number] Oral 900 / 900 Output: Urine Amount (Catheter) 1100 / 1100 Indwelling Urethral Catheter 1100 / 1100 Other: Date of Last Bowel Movement 03/02/18 03/02/18 # Bowel Movements 1 Narrative: GENERAL: This is an elderly 72 year old female patient, in no apparent distress. CARDIOVASCULAR: Regular rate and rhythm RESPIRATORY: Clear to auscultation. Breath sounds equal bilaterally. GASTROINTESTINAL: Abdomen soft, non-tender, nondistended. Normal active bowel sounds MUSCULOSKELETAL: Extremities without clubbing, cyanosis, or edema. NEURO: Alert & Oriented. Moves all ext x4, bilateral upper and lower extremity strength 5/5, cleared speech, no facial droop. - Urinary Catheter Management Indwelling Urethral Catheter Cath placed during this visit: yes, but has since been removed by the nurse Reason for continuing: Decision to DC catheter Insertion date: 03/01/18 Removal date: 03/02/18 Removal time: 19:00 Results - Labs CBC & Chem 7: 03/02/18 03:10 03/03/18 11:23 Laboratory Results - last 24 hr 03/02/18 03/03/18 21:12 08:43 POC Glucose 244 H 322 H Microbiology 02/28/18 19:25 Blood - Peripheral Aerobic Blood Culture - Preliminary No growth in 3 days 02/28/18 19:25 Blood - Peripheral Anaerobic Blood Culture - Preliminary No growth in 3 days 02/28/18 19:30 Blood - Peripheral Aerobic Blood Culture - Preliminary No growth in 3 days 02/28/18 19:30 Blood - Peripheral Anaerobic Blood Culture - Preliminary No growth in 3 days - Imaging Impressions Head CT 03/02/18 17:21 CONCLUSION: Stable noncontrast head CT. No acute intracranial abnormality is identified. . Assessment and Plan - Assessment (1) Ureterolithiasis Code(s): N20.1 - Calculus of ureter Status: Acute Plan: Fall at home, possible syncope AMS speech disturbance - concern for CVA vs metabolic encephalopathy. Symptoms onset not known - she was found on the floor at home. Daughter reports of late there has been concern for early dementia. MRI brain reviewed and reveals: 1. No acute abnormality is seen. 2. Scattered areas of demyelination likely from small vessel ischemic change in the right. MRA neck reveals: Mild focal stenosis at the origin of the left internal carotid artery. Echo 03/01/18: The left ventricular systolic function is normal with an estimated ejection fraction in the range of 55-60%. Normal left ventricular size. Wall thickness is normal. No regional wall motion abnormalities are present. Aortic valve sclerosis is present. There is trace tricuspid valve regurgitation. The estimated pulmonary arterial pressure is 26.8 mmHg. continuous telemetry PT/OT/ST Asa 81 mg daily. consult to neurology Dr. Silva who ordered EEG, recommends consider lumbar puncture of patient's temperature elevates again with headache and other symptoms of meningitis Ureterolithiasis Urology consulted, patient seen by Dr. Varela planning possible right ureteral stent placement tomorrow, pending results of her syncope evaluation Patient does not have any pain IV fluids IV cefepime Blood cultures pending repeat CBC and BMP in AM HTN will hold home antihypertensive regiment, patient's BP has been running low asked nursing to take BPs manually Vasotec as needed DM with peripheral neuropathy hold metformin. SSI with accu checks. diabetic diet Cont Lyrica. Patient no longer has FHCP - patient transferred to [facility] service Dr. Noe Ferrer (2) Altered mental status Code(s): R41.82 - Altered mental status, unspecified Status: Acute (3) DAQUAN (acute kidney injury) Code(s): N17.9 - Acute kidney failure, unspecified Status: Acute (4) Fall Code(s): W19.XXXA - Unspecified fall, initial encounter Status: Acute - Plan 72-year-old female who presented to the hospital on 02/28 after daughter found patient down on the ground with confusion at home. AMS - speech disturbance -suspected ischemic stroke. Head CT completed on 03/01: senescent changes w/o acute intracranial abnormality Neck MRA completed 03/01: Mild focal stenosis at the origin of the left internal carotid artery. Head MRI 03/01: No acute abnormality, scattered areas of demyelination vessel ischemic changes in the right. Carotid ultrasound 03/02: Less than 50% stenosis on left and right internal carotid arteries. Head CT completed 03/02: Negative Echo with EF 55-60% no wall thickness abnormality, regional wall motion abnormalities. Aortic valve stenosis, trace tricuspid valve regurgitation. s/p TPa with improvement in speech and mental status PT/OT/ST Asa 325mg daily along with Plavix, statin Hypercoagulable labs ordered by neurology Dr. Silva following appreciate assistance Fall at home, possible syncope. No events recorded on telemetry, echo as noted above Ureterolithiasis. Fevers Abdomen/pelvic CT completed on 02/28: Obstructive uropathy on the right side due to 6 mm calcified stone in the proximal right ureter Urology following, appreciate assistance. Check renal US to assess for hydronephrosis, c/o mild back pain Afebrile, BC negative to date, Continue IV Cefepime, if renal US negative transition to p.o. Howell D/C patient voiding without difficulty DAQUAN, likely secondary to above - s/p IV fluids, creatinine improved, continue to encourage fluids Diabetes mellitus with peripheral neuropathy -Continue to hold metformin, blood sugars in the mid 200s-300s -Check Hemoglobin A1C - Change diet to cardiac and diabetic - Accu-checks with ISS -Continue Lyrica HTN -normotensive, continue to monitor RLS -Continue Requip DVT prophylaxis-ambulation Discussed Condition With: Discussed with patient and RN
[2018-03-03 12:14] LABS: Calcium 8.4 mg/dL (8.5-10.1); Carbon Dioxide 17.2 meq/L (21.0-32.0); Potassium 4.1 meq/L (3.5-5.1)
[2018-03-03] MEDS: Pregabalin 25 MG Capsule PO SCH ×3 (12:19→18:03)
--- NOTE | 2018-03-03 15:06 | US ---
EXAM DATE: 03/03/2018 2:49 PM EDT AGE/SEX: 72 years / Female INDICATIONS: Increased lab values. CLINICAL DATA: This is the patient's initial encounter. Patient reports that signs and symptoms have been present for 3 days and indicates a pain score of 2/10. MEDICAL/SURGICAL HISTORY: Deep venous thrombosis. Hypertension. Ureterolithiasis. Diabetes. Pe ripheral neuropathy. None. COMPARISON: [facility] – [place] & PELVIS W/O CONTRAST, 02/28/2018. . MEASUREMENTS: Right Kidney:__12.8 x 5.4 x 5.2 cm Left Kidney:__11.3 x 4.4 x 5.1 cm FINDINGS: Right Kidney: Normal echotexture without cortical thinning. There is no mass or stone visualized. Mil d right hydronephrosis is present similar to what was documented on the CT scan from 3 days ago. The prior CT demonstrated a 6 mm stone in the right proximal ureter. Left Kidney: Normal echotexture. No hydronephrosis or stone is identified. There is a partially anech oic and hypoechoic lesion at the upper pole of the kidney measuring 2.4 x 2.1 x 2.6 cm. No color Dopp ler signal is identified in the hypoechoic portion. Bladder: Within normal limits given the degree of distension. Other: None. CONCLUSION: 1. Stable mild right hydronephrosis. Prior CT demonstrated the hydronephrosis to be caused by a 6 mm stone in the proximal right ureter. 2. Complex cystic lesion in the left upper pole kidney measuring 2.6 cm. On an elective basis sugges t further characterization with renal protocol MRI with and without intravenous contrast. Electronically signed by: Babar Evans MD 03/03/2018 3:04 PM EDT
[2018-03-03 15:23] LABS: Hemoglobin A1c 6.9 % (4.3-6.0)
--- NOTE | 2018-03-03 16:47 | ECG ---
Date Performed: 03/01/2018 Time Performed: 17:15:56 PTAGE: 72 years EKG: Sinus tachycardia. Septal and lateral ST-T changes are nonspecific Compared to previous tra cing, sinus rate is faster Borderline ECG PREVIOUS TRACING : 03/01/2018 13.41 DOCTOR: Aram Dorado Interpretating Date/Time 03/03/2018 16:46:32
--- NOTE | 2018-03-03 16:47 | ECG ---
Date Performed: 03/01/2018 Time Performed: 13:41:23 PTAGE: 72 years EKG: Sinus rhythm POSSIBLE RIGHT VENTRICULAR CONDUCTION DELAY Compared to PREVIOUS TRACING , sinus rate is slower BORDERLINE ECG INTERPRETATION BASED ON A DEFAULT AGE OF 40 YEARS PREVIOUS TRACIN02/28/2018 21.15 DOCTOR: Aram Dorado Interpretating Date/Time 03/03/2018 16:46:13
--- NOTE | 2018-03-03 20:57 | CT ---
EXAM DATE: 03/03/2018 8:03 PM EDT AGE/SEX: 72 years / Female INDICATIONS: Cephalgia. CLINICAL DATA: This is the patient's initial encounter. Patient reports that signs and symptoms have been present for 1 day and indicates a pain score of 7/10. MEDICAL/SURGICAL HISTORY: Stroke. Deep venous thrombosis. None. RADIATION DOSE: 36.44 CTDI (mGy) [place] [facility] [place]. . TECHNIQUE: CT of the head without contrast. Using automated exposure control and adjustment of the mA and/or kV according to patient size, radiation dose was kept as low as reasonably achievable to ob tain optimal diagnostic quality images. DICOM format image data is available electronically for revi ew and comparison. FINDINGS: Cerebrum: The ventricles are normal for age. No evidence of midline shift, mass lesion, hemorrhage or acute infarction. No extraaxial fluid collections are seen. Posterior Fossa: The cerebellum and brainstem are intact. The 4th ventricle is midline. The cerebe llopontine angle is unremarkable. Extracranial: The visualized portion of the orbits is intact. Skull: The calvaria is intact. No evidence of skull fracture. CONCLUSION: 1. Negative noncontrast CT brain. . Electronically signed by: Nelson Hernandez MD 03/03/2018 8:56 PM EDT
--- NOTE | 2018-03-03 21:18 | P.PNNEU ---
Subjective Subjective Comments: pt developed confusion this afternoon with slurred speech. Feels mouth is dry Active Medications: Active Medications Acetaminophen (Tylenol) 650 mg PO Q4H PRN PRN Reason: Temp > 100.4 Last Admin: 03/03/18 12:14 Dose: 650 mg Hydrocodone Bitart/Acetaminophen ([place] 5/325) 1 tab PO Q6H PRN PRN Reason: Pain 5-10 Al Hydroxide/Mg Hydroxide (Milk Of Magnesia Liq) 30 ml PO Q12H PRN PRN Reason: Mild Constipation Aspirin (Aspirin) 325 mg PO DAILY [facility] Last Admin: 03/03/18 08:46 Dose: 325 mg Bisacodyl (Dulcolax Supp) 10 mg RECTAL DAILY PRN PRN Reason: SEVERE CONSITIPATION Clopidogrel Bisulfate (Plavix) 75 mg PO DAILY [facility] Last Admin: 03/03/18 08:46 Dose: 75 mg Dextrose (D50w Vial) 50 ml IV.PUSH UNSCH PRN PRN Reason: PER HYPOGLYCEMIA PROTOCOL Enalaprilat (Vasotec Inj) 1.25 mg IV.PUSH Q4H PRN PRN Reason: For SBP > 220 or DBP > 120 Escitalopram Oxalate (Lexapro) 20 mg PO DAILY [facility] Last Admin: 03/03/18 08:46 Dose: 20 mg Glucagon (Glucagon Inj) 1 mg OTHER PRN PRN PRN Reason: for Hypoglycemia Protocol Sodium Chloride (Ns Inj) 1,000 mls @ 100 mls/hr IV.CONT .Q10H [facility] Last Admin: 03/03/18 12:21 Dose: Not Given Cefepime HCl 2,000 mg/ Sodium (Chloride) 100 mls @ 200 mls/hr IV.SIG Q12H [facility] Last Infusion: 03/03/18 13:00 Dose: Infused Acetaminophen (Ofirmev Inj) 1,000 mg in 100 mls @ 400 mls/hr IV.SIG Q6H PRN PRN Reason: TEMPERATURE > 101 F /PAIN 1-10 Last Infusion: 03/01/18 21:13 Dose: Infused Levetiracetam 500 mg/ Sodium (Chloride) 105 mls @ 400 mls/hr IV.SIG Q6HR [facility] Insulin Human Regular (Novolin R Correctional Sugar Inj) 0 units SQ ACHS [facility]; Protocol Last Admin: 03/03/18 17:00 Dose: 1 units Lactulose (Lactulose Liq) 30 ml PO DAILY PRN PRN Reason: SEVERE CONSITIPATION Ondansetron HCl (Zofran Inj) 4 mg IV.PUSH Q6H PRN PRN Reason: NAUSEA OR VOMITING Pantoprazole Sodium (Protonix) 40 mg PO DAILY [facility] Last Admin: 03/03/18 08:46 Dose: 40 mg Pravastatin Sodium (Pravachol) 40 mg PO DAILY [facility] Last Admin: 03/03/18 08:46 Dose: 40 mg Pregabalin (Lyrica) 25 mg PO TID [facility] Last Admin: 03/03/18 18:03 Dose: 25 mg Ropinirole HCl (Requip) 0.5 mg PO HS [facility] Last Admin: 03/02/18 22:28 Dose: 0.5 mg Ropinirole HCl (Requip) 0.25 mg PO TIDAC [facility] Last Admin: 03/03/18 18:04 Dose: 0.25 mg Sennosides (Senokot) 17.2 mg PO Q12H PRN PRN Reason: Moderate Constipation Sodium Chloride (Ns Flush) 2 ml IV.FLUSH BID [facility] Last Admin: 03/03/18 12:20 Dose: 2 ml Sodium Chloride (Ns Flush) 2 ml IV.FLUSH PRN PRN PRN Reason: FLUSH AFTER USING IV ACCESS Allergies/Adverse Reactions: Allergies Allergy/AdvReac Type Severity Reaction Status Date / Time latex Allergy Severe Rash Verified 02/28/18 19:51 phenobarbital Allergy Severe Dizziness Verified 02/28/18 19:51 Physical Exam Vital signs: Vital Signs 03/03/18 00:00 03/03/18 01:07 03/03/18 04:00 Temperature 97.1 F L 98.2 F Pulse Rate 79 86 Respiratory Rate 18 18 17 Blood Pressure 135/64 130/71 Pulse Oximetry 97 98 03/03/18 04:19 03/03/18 07:55 03/03/18 08:00 Temperature 98.8 F Pulse Rate 85 105 H 106 H Respiratory Rate 19 Blood Pressure 125/58 L Pulse Oximetry 96 03/03/18 11:59 03/03/18 15:43 Temperature 97.9 F 98.0 F Pulse Rate 98 H 90 Respiratory Rate 18 17 Blood Pressure 121/62 118/66 Pulse Oximetry 97 97 Intake & Output 03/03/18 03/03/18 03/04/18 06:59 18:59 06:59 Intake Total 1100 / 1100 1050 / 1050 Balance 1100 / 1100 1050 / 1050 Weight 71.1 kg Intake: IV 1100 / 1100 100 / 100 NS Inj 1,000 ML @ 100 mls/hr IV 1000 / 1000 .CONT .Q10H [facility] Rx#:[id number] Maxipime Inj 2,000 MG In NS Inj 100 / 100 100 / 100 100 ML @ 200 mls/hr IV.SIG Q12H [facility] Rx#:[id number] Oral 950 / 950 Other: # Voids 9 Date of Last Bowel Movement 03/02/18 03/02/18 - Routine Neurological Exam alert, speech dysarthric but not aphasic. Oriented to date and place. Follow commands. Is confused CN normal MOTOR 5/5 BUE - Urinary Catheter Management Indwelling Urethral Catheter Cath placed during this visit: yes, but has since been removed by the nurse Reason for continuing: Decision to DC catheter Insertion date: 03/01/18 Removal date: 03/02/18 Removal time: 19:00 Objective Radiology Results: CT brain today is normal Laboratory Results - last 24 hr 03/02/18 03/03/18 03/03/18 21:12 08:43 11:23 Sodium 135 L Potassium 4.1 Chloride 106 Carbon Dioxide 17.2 L Anion Gap 12 BUN 16 Creatinine 1.32 H Estimated GFR 40 L POC Glucose 244 H 322 H Random Glucose 231 H D Hemoglobin A1c Calcium 8.4 L D 03/03/18 03/03/18 03/03/18 11:30 13:30 17:07 Sodium Potassium Chloride Carbon Dioxide Anion Gap BUN Creatinine Estimated GFR POC Glucose 287 H 151 H Random Glucose Hemoglobin A1c 6.9 H Calcium Microbiology 02/28/18 19:25 Aerobic Blood Culture - Preliminary Blood - Peripheral No growth in 3 days Anaerobic Blood Culture - Preliminary No growth in 3 days 02/28/18 19:30 Aerobic Blood Culture - Preliminary Blood - Peripheral No growth in 3 days Anaerobic Blood Culture - Preliminary No growth in 3 days Diagnostic Tests: EEG--small left temporal sharps Review/Management - Diagnosis (1) Stroke Code(s): I63.9 - Cerebral infarction, unspecified Status: Acute Current Visit: Yes (2) Seizure Code(s): R56.9 - Unspecified convulsions Status: Acute Current Visit: Yes - Review/Management Plan: possible focal sz EEG finding of left temporal sharp activity could be temporal lobe sz Recommend MRI and MRA brain start keppra for possible sz. follow up hypercoag labs. initially patient had fevers with onset of mental status change. THerefore will order LP to r/o encephalitis and start acyclovir pending result of LP. WIll need to hold asa and plavix for LP
--- NOTE | 2018-03-04 08:51 | P.PNNEU ---
Subjective Subjective Comments: pt lethargic from ativan. No other "bizarre" behavior at this time.Receiving keppra. Active Medications: Active Medications Acetaminophen (Tylenol) 650 mg PO Q4H PRN PRN Reason: Temp > 100.4 Last Admin: 03/03/18 12:14 Dose: 650 mg Hydrocodone Bitart/Acetaminophen ([place] 5/325) 1 tab PO Q6H PRN PRN Reason: Pain 5-10 Al Hydroxide/Mg Hydroxide (Milk Of Marie Liq) 30 ml PO Q12H PRN PRN Reason: Mild Constipation Bisacodyl (Dulcolax Supp) 10 mg RECTAL DAILY PRN PRN Reason: SEVERE CONSITIPATION Dextrose (D50w Vial) 50 ml IV.PUSH UNSCH PRN PRN Reason: PER HYPOGLYCEMIA PROTOCOL Enalaprilat (Vasotec Inj) 1.25 mg IV.PUSH Q4H PRN PRN Reason: For SBP > 220 or DBP > 120 Escitalopram Oxalate (Lexapro) 20 mg PO DAILY [facility] Last Admin: 03/03/18 08:46 Dose: 20 mg Glucagon (Glucagon Inj) 1 mg OTHER PRN PRN PRN Reason: for Hypoglycemia Protocol Sodium Chloride (Ns Inj) 1,000 mls @ 100 mls/hr IV.CONT .Q10H [facility] Last Admin: 03/03/18 22:29 Dose: Not Given Cefepime HCl 2,000 mg/ Sodium (Chloride) 100 mls @ 200 mls/hr IV.SIG Q12H [facility] Last Admin: 03/03/18 22:39 Dose: 200 mls/hr Acetaminophen (Ofirmev Inj) 1,000 mg in 100 mls @ 400 mls/hr IV.SIG Q6H PRN PRN Reason: TEMPERATURE > 101 F /PAIN 1-10 Last Infusion: 03/01/18 21:13 Dose: Infused Levetiracetam 500 mg/ Sodium (Chloride) 105 mls @ 400 mls/hr IV.SIG Q6H [facility] Last Admin: 03/04/18 03:26 Dose: 400 mls/hr Acyclovir Sodium 700 mg/ (Sodium Chloride) 114 mls @ 114 mls/hr IV.SIG Q12HR [facility] Insulin Human Regular (Novolin R Correctional Sugar Inj) 0 units SQ ACHS [facility]; Protocol Last Admin: 03/03/18 22:29 Dose: Not Given Lactulose (Lactulose Liq) 30 ml PO DAILY PRN PRN Reason: SEVERE CONSITIPATION Ondansetron HCl (Zofran Inj) 4 mg IV.PUSH Q6H PRN PRN Reason: NAUSEA OR VOMITING Pantoprazole Sodium (Protonix) 40 mg PO DAILY [facility] Last Admin: 03/03/18 08:46 Dose: 40 mg Pravastatin Sodium (Pravachol) 40 mg PO DAILY [facility] Last Admin: 03/03/18 08:46 Dose: 40 mg Pregabalin (Lyrica) 25 mg PO TID [facility] Last Admin: 03/03/18 18:03 Dose: 25 mg Ropinirole HCl (Requip) 0.5 mg PO HS [facility] Last Admin: 03/03/18 22:29 Dose: Not Given Ropinirole HCl (Requip) 0.25 mg PO TIDAC [facility] Last Admin: 03/03/18 18:04 Dose: 0.25 mg Sennosides (Senokot) 17.2 mg PO Q12H PRN PRN Reason: Moderate Constipation Sodium Chloride (Ns Flush) 2 ml IV.FLUSH BID [facility] Last Admin: 03/03/18 22:29 Dose: Not Given Sodium Chloride (Ns Flush) 2 ml IV.FLUSH PRN PRN PRN Reason: FLUSH AFTER USING IV ACCESS Allergies/Adverse Reactions: Allergies Allergy/AdvReac Type Severity Reaction Status Date / Time latex Allergy Severe Rash Verified 02/28/18 19:51 phenobarbital Allergy Severe Dizziness Verified 02/28/18 19:51 Physical Exam Vital signs: Vital Signs 03/03/18 11:59 03/03/18 15:43 03/03/18 20:00 Temperature 97.9 F 98.0 F 98.7 F Pulse Rate 98 H 90 110 H Respiratory Rate 18 17 17 Blood Pressure 121/62 118/66 127/63 Pulse Oximetry 97 97 97 03/03/18 23:48 03/04/18 00:00 03/04/18 01:33 Temperature 99.1 F Pulse Rate 106 H 107 H Respiratory Rate 17 18 Blood Pressure 107/52 L Pulse Oximetry 96 03/04/18 03:51 03/04/18 04:00 Temperature 98.7 F Pulse Rate 102 H 98 H Respiratory Rate 19 Blood Pressure 133/72 Pulse Oximetry 93 L Intake & Output 03/03/18 03/04/18 03/04/18 18:59 06:59 18:59 Intake Total 1050 / 1050 585 / 585 Balance 1050 / 1050 585 / 585 Intake: IV 100 / 100 105 / 105 Maxipime Inj 2,000 MG In NS Inj 100 / 100 100 ML @ 200 mls/hr IV.SIG Q12H [facility] Rx#:[id number] Keppra Inj 500 MG In NS Inj 100 105 / 105 ML @ 400 mls/hr IV.SIG Q6H [facility] Rx#:[id number] Oral 950 / 950 480 / 480 Other: # Voids 9 Date of Last Bowel Movement 03/02/18 03/02/18 - Routine Neurological Exam Lethargic , but arouses easily. Oriented to date and place. Speech normal. No unusual thought content this am CN intact MOTOR 5/5 BUE and BLE - Urinary Catheter Management Indwelling Urethral Catheter Cath placed during this visit: yes, but has since been removed by the nurse Reason for continuing: Decision to DC catheter Insertion date: 03/01/18 Removal date: 03/02/18 Removal time: 19:00 Objective Laboratory Results - last 24 hr 03/03/18 03/03/18 03/03/18 11:23 11:30 13:30 Sodium 135 L Potassium 4.1 Chloride 106 Carbon Dioxide 17.2 L Anion Gap 12 BUN 16 Creatinine 1.32 H Estimated GFR 40 L POC Glucose 287 H Random Glucose 231 H D Hemoglobin A1c 6.9 H Calcium 8.4 L D 03/03/18 03/03/18 03/04/18 17:07 22:22 08:04 Sodium Potassium Chloride Carbon Dioxide Anion Gap BUN Creatinine Estimated GFR POC Glucose 151 H 150 H 140 H Random Glucose Hemoglobin A1c Calcium Microbiology 02/28/18 19:25 Aerobic Blood Culture - Preliminary Blood - Peripheral No growth in 3 days Anaerobic Blood Culture - Preliminary No growth in 3 days 02/28/18 19:30 Aerobic Blood Culture - Preliminary Blood - Peripheral No growth in 3 days Anaerobic Blood Culture - Preliminary No growth in 3 days Review/Management - Diagnosis (1) Stroke Code(s): I63.9 - Cerebral infarction, unspecified Status: Acute Current Visit: Yes (2) Seizure Code(s): R56.9 - Unspecified convulsions Status: Acute Current Visit: Yes - Review/Management Plan: possible temporal lobe seizure. continue keppra. repeat EEG, MRI brain , LP to r/o encephalitis. Continue acyclovir for know . If CSF HSV pcr negative can stop acyclovir.
[2018-03-04] MEDS: Insulin NovoLIN Regular Correctional Sugar Inj SQ SCH ×4 (09:10→22:03)
[2018-03-04] MEDS: Acyclovir Inj 700 MG in Sodium Chlor 0.9% Inj 100 ML IV.SIG SCH ×2 (09:11→22:28)
[2018-03-04] MEDS: Pregabalin 25 MG Capsule PO SCH ×3 (09:22→18:00)
[2018-03-04] MEDS: Sod Chloride 0.9% Inj 1,000 ML IV.CONT SCH ×2 (09:38→18:23)
--- NOTE | 2018-03-04 11:19 | P.PN ---
Subjective Interval history: Follow-up visit for altered mental status, suspected ischemic stroke, nephrolithiasis, UTI, and diabetes mellitus. Patient seen and examined sitting up in bed with family at bedside. She reports headache has not improved however still having some neck and shoulder pain mostly on the left. She denies any chills but reports night sweats. She denies any nausea, vomiting, shortness of breath, cough, dysuria or diarrhea. Physical Exam Vital signs: Vital Signs 03/03/18 11:59 03/03/18 15:43 03/03/18 20:00 Temperature 97.9 F 98.0 F 98.7 F Pulse Rate 98 H 90 110 H Respiratory Rate 18 17 17 Blood Pressure 121/62 118/66 127/63 Pulse Oximetry 97 97 97 03/03/18 23:48 03/04/18 00:00 03/04/18 01:33 Temperature 99.1 F Pulse Rate 106 H 107 H Respiratory Rate 17 18 Blood Pressure 107/52 L Pulse Oximetry 96 03/04/18 03:51 03/04/18 04:00 03/04/18 08:00 Temperature 98.7 F 98 F Pulse Rate 102 H 98 H 96 H Respiratory Rate 19 20 Blood Pressure 133/72 133/79 Pulse Oximetry 93 L 96 Intake & Output 03/03/18 03/04/18 03/04/18 18:59 06:59 18:59 Intake Total 1050 / 1050 585 / 585 424 / 424 Balance 1050 / 1050 585 / 585 424 / 424 Intake: IV 100 / 100 105 / 105 424 / 424 Zovirax Inj 700 MG In NS Inj 114 / 114 100 ML @ 114 mls/hr IV.SIG Q12HR BEENA Rx#:[id number] Maxipime Inj 2,000 MG In NS Inj 100 / 100 100 / 100 100 ML @ 200 mls/hr IV.SIG Q12H BEENA Rx#:[id number] Keppra Inj 500 MG In NS Inj 100 105 / 105 210 / 210 ML @ 400 mls/hr IV.SIG Q6H BEENA Rx#:[id number] Oral 950 / 950 480 / 480 Other: # Voids 9 Date of Last Bowel Movement 03/02/18 03/02/18 Narrative: GENERAL: Well-developed thin female resting in bed comfortably. SKIN: Warm and dry. HEAD: Atraumatic. Normocephalic. EYES: Pupils equal and round. No scleral icterus. No injection or drainage. ENT: No nasal bleeding or discharge. Mucous membranes pink and moist. NECK: Trachea midline. CARDIOVASCULAR: Regular rate and rhythm. RESPIRATORY: No accessory muscle use. Clear to auscultation. Breath sounds equal bilaterally. GASTROINTESTINAL: Abdomen soft, non-tender, nondistended. MUSCULOSKELETAL: Extremities without clubbing, cyanosis, or edema. No obvious deformities. NEUROLOGICAL: Drowsy but easily awakens to voice. Oriented 3, following commands. no obvious cranial nerve deficits. Motor grossly within normal limits. Moving bilateral upper and lower extremities spontaneously, equal strength, no facial droop, normal speech. PSYCHIATRIC: Appropriate mood and affect; insight and judgment normal. - Urinary Catheter Management Indwelling Urethral Catheter Cath placed during this visit: yes, but has since been removed by the nurse Reason for continuing: Decision to DC catheter Insertion date: 03/01/18 Removal date: 03/02/18 Removal time: 19:00 Results - Labs CBC & Chem 7: 03/02/18 03:10 03/03/18 11:23 Laboratory Results - last 24 hr 03/03/18 03/03/18 03/03/18 11:23 11:30 13:30 Sodium 135 L Potassium 4.1 Chloride 106 Carbon Dioxide 17.2 L Anion Gap 12 BUN 16 Creatinine 1.32 H Estimated GFR 40 L POC Glucose 287 H Random Glucose 231 H D Hemoglobin A1c 6.9 H Calcium 8.4 L D 03/03/18 03/03/18 03/04/18 17:07 22:22 08:04 Sodium Potassium Chloride Carbon Dioxide Anion Gap BUN Creatinine Estimated GFR POC Glucose 151 H 150 H 140 H Random Glucose Hemoglobin A1c Calcium Microbiology 02/28/18 19:25 Blood - Peripheral Aerobic Blood Culture - Preliminary No growth in 4 days 02/28/18 19:25 Blood - Peripheral Anaerobic Blood Culture - Preliminary No growth in 4 days 02/28/18 19:30 Blood - Peripheral Aerobic Blood Culture - Preliminary No growth in 4 days 02/28/18 19:30 Blood - Peripheral Anaerobic Blood Culture - Preliminary No growth in 4 days - Imaging Impressions Abdomen/Bladder Ultrasound 03/03/18 00:00 CONCLUSION: 1. Stable mild right hydronephrosis. Prior CT demonstrated the hydronephrosis to be caused by a 6 mm stone in the proximal right ureter. 2. Complex cystic lesion in the left upper pole kidney measuring 2.6 cm. On an elective basis suggest further characterization with renal protocol MRI with and without intravenous contrast. Head CT 03/03/18 18:14 CONCLUSION: 1. Negative noncontrast CT brain. . Assessment and Plan - Assessment (1) Ureterolithiasis Code(s): N20.1 - Calculus of ureter Status: Acute Plan: Fall at home, possible syncope AMS speech disturbance - concern for CVA vs metabolic encephalopathy. Symptoms onset not known - she was found on the floor at home. Daughter reports of late there has been concern for early dementia. MRI brain reviewed and reveals: 1. No acute abnormality is seen. 2. Scattered areas of demyelination likely from small vessel ischemic change in the right. MRA neck reveals: Mild focal stenosis at the origin of the left internal carotid artery. Echo 03/01/18: The left ventricular systolic function is normal with an estimated ejection fraction in the range of 55-60%. Normal left ventricular size. Wall thickness is normal. No regional wall motion abnormalities are present. Aortic valve sclerosis is present. There is trace tricuspid valve regurgitation. The estimated pulmonary arterial pressure is 26.8 mmHg. continuous telemetry PT/OT/ST Asa 81 mg daily. consult to neurology Dr. Silva who ordered EEG, recommends consider lumbar puncture of patient's temperature elevates again with headache and other symptoms of meningitis Ureterolithiasis Urology consulted, patient seen by Dr. Varela planning possible right ureteral stent placement tomorrow, pending results of her syncope evaluation Patient does not have any pain IV fluids IV cefepime Blood cultures pending repeat CBC and BMP in AM HTN will hold home antihypertensive regiment, patient's BP has been running low asked nursing to take BPs manually Vasotec as needed DM with peripheral neuropathy hold metformin. SSI with accu checks. diabetic diet Cont Lyrica. Patient no longer has FHCP - patient transferred to [facility] service Dr. Noe Ferrer (2) Altered mental status Code(s): R41.82 - Altered mental status, unspecified Status: Acute (3) DAQUAN (acute kidney injury) Code(s): N17.9 - Acute kidney failure, unspecified Status: Acute (4) Fall Code(s): W19.XXXA - Unspecified fall, initial encounter Status: Acute - Plan 72-year-old female who presented to the hospital on 02/28 after daughter found patient down on the ground with confusion at home. AMS - speech disturbance -suspected ischemic stroke. -Head CT completed on 03/01: senescent changes w/o acute intracranial abnormality -Neck MRA completed 03/01: Mild focal stenosis at the origin of the left internal carotid artery. -Head MRI 03/01: No acute abnormality, scattered areas of demyelination vessel ischemic changes in the right. -Carotid ultrasound 03/02: Less than 50% stenosis on left and right internal carotid arteries. -Head CT completed 03/02: Negative, repeat CT on 03/03- - Echo with EF 55-60% no wall thickness abnormality, regional wall motion abnormalities. Aortic valve stenosis, trace tricuspid valve regurgitation. - s/p TPa with improvement in speech and mental status - PT/OT/ST -Aspirin Plavix on hold for planned LP, continue statin - Hypercoagulable labs ordered by neurology - Dr. Silva following appreciate assistance Fall at home, possible syncope. No events recorded on telemetry, echo as noted above ? Herpes encephalitis -Discussed with Dr. Silva neurology -Fevers on admission, complaint of headache, and abnormal EEG as well as bizarre behavior suspicious for encephalitis -EEG completed 03/02 showing nonspecific left temporal region changes suspicious for epileptic activity -Patient started on Keppra IV as well as IV acyclovir -Plans for LP on Friday, if CSF negative for HSV can D/C Acyclovir -Check MRA/MRI -Seizure precautions Ureterolithiasis. Fevers Abdomen/pelvic CT completed on 02/28: Obstructive uropathy on the right side due to 6 mm calcified stone in the proximal right ureter Urology following, appreciate assistance. -Renal ultrasound completed 03/03 shows stable mild right hydronephrosis, similar to prior CT, no mass or stone visualized. -Patient voiding with episodes of incontinence, recheck UA and if negative discontinue cefepime -Patient with low-grade temps possibly due to suspected encephalitis DAQUAN, likely secondary to above - s/p IV fluids, creatinine improved, continue to encourage fluids -Recheck BMP tomorrow Diabetes mellitus with peripheral neuropathy -Continue to hold metformin -Hemoglobin A1c 6.9 -Continue cardiac and diabetic diet - Accu-checks with ISS, blood sugars improved -Continue Lyrica HTN -normotensive, continue to monitor RLS -Continue Requip DVT prophylaxis-ambulation/SCD's Discussed Condition With: Discussed with patient, brother bedside, Dr. Silva.
--- NOTE | 2018-03-04 13:59 | MR ---
EXAM DATE: 03/04/2018 12:29 PM EDT AGE/SEX: 72 years / Female INDICATIONS: Slurred speech. Left sided weakness. CLINICAL DATA: This is the patient's subsequent encounter. Patient reports that signs and symptoms h ave been present for 4 - 6 days and indicates a pain score of 0/10. MEDICAL/SURGICAL HISTORY: Hypertension. Diabetes mellitus type II. Cholecystectomy. Gastric b ypass. COMPARISON: [facility] [place], MR HEAD W/O CONTRAST, 03/04/2018. . TECHNIQUE: 3D [id number] MRA was performed. Source images, multiplanar STS MIP, and 3D volum e MIP reconstructions were reviewed. FINDINGS: Moderate atherosclerotic intracranial vascular disease without aneurysm or major branch vessel occlus ion. The right posterior cerebral artery arises from the anterior circulation with patent P-comm, a normal variant. CONCLUSION: 1. Moderate atherosclerotic vascular disease. Electronically signed by: Baldemar Salazar MD 03/04/2018 1:58 PM EDT
--- NOTE | 2018-03-04 15:33 | MR ---
EXAM DATE: 03/04/2018 12:30 PM EDT AGE/SEX: 72 years / Female INDICATIONS: Slurred speech. Left sided weakness. CLINICAL DATA: This is the patient's subsequent encounter. Patient reports that signs and symptoms h ave been present for 4 - 6 days and indicates a pain score of 0/10. MEDICAL/SURGICAL HISTORY: Hypertension. Diabetes mellitus type II. Cholecystectomy. Gastric b ypass. COMPARISON: No prior exams available for comparison. TECHNIQUE: Multiplanar, multisequence examination of the brain was performed without contrast. FINDINGS: Cerebrum: There is mild generalized atrophy with ventricular size within normal limits given the degr ee of atrophy. No midline shift, mass lesion, hemorrhage or acute infarction. No extraaxial fluid c ollections are seen. The pituitary gland and suprasellar cistern are normal in configuration. White Matter: There is mild periventricular and subcortical white matter signal change. Posterior Fossa: The cerebellum and brainstem demonstrate no acute abnormality. The 4th ventricle is midline. The cerebellopontine angle is within normal limits. The cerebellar tonsils are normal in p osition. Diffusion Imaging: No areas of restricted diffusion are seen. Extracranial: The visualized sinuses are clear. CONCLUSION: 1. No acute intracranial abnormality is identified. There are no findings to indicate recent ischemi a. 2. Chronic findings include mild generalized cerebral atrophy and mild periventricular and subcortic al chronic white matter changes characteristic of chronic microvascular ischemia. Electronically signed by: Babar Evans MD 03/04/2018 3:31 PM EDT
[2018-03-05] MEDS: Sod Chloride 0.9% Inj 1,000 ML IV.CONT SCH ×2 (06:27→16:59)
[2018-03-05 06:53] LABS: Calcium 8.4 mg/dL (8.5-10.1); Carbon Dioxide 24.5 meq/L (21.0-32.0); Potassium 3.6 meq/L (3.5-5.1)
[2018-03-05] MEDS: Pregabalin 25 MG Capsule PO SCH ×4 (09:33→17:07)
[2018-03-05] MEDS: Insulin NovoLIN Regular Correctional Sugar Inj SQ SCH ×4 (09:44→22:03)
[2018-03-05] MEDS: Acyclovir Inj 700 MG in Sodium Chlor 0.9% Inj 100 ML IV.SIG SCH ×2 (10:05→22:20)
--- NOTE | 2018-03-05 15:05 | P.PN ---
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 Patient is seen and examined resting in bed comfortably , appears to be in no acute distress. She denies any fevers, chills, nausea, vomiting, diarrhea, cough, shortness of breath, dysuria or incontinence. Patient reports some sternal pain which is worse with deep breathing and coughing. Patient reports that this pain has been present since her stroke, does not remember how she fell exactly. She reports no other acute concerns or complaints at this moment. Physical Exam Vital signs: Vital Signs 03/04/18 16:00 03/04/18 20:00 03/05/18 00:00 Temperature 98.7 F 97.9 F 98.0 F Pulse Rate 84 82 88 Respiratory Rate 20 17 17 Blood Pressure 119/58 L 134/74 140/74 Pulse Oximetry 93 L 95 93 L 03/05/18 04:00 03/05/18 08:00 03/05/18 12:00 Temperature 98.1 F 98.1 F 98.0 F Pulse Rate 90 81 90 Respiratory Rate 18 18 18 Blood Pressure 149/76 H 144/67 H 128/61 Pulse Oximetry 94 L 96 93 L Intake & Output 03/04/18 03/05/18 03/05/18 18:59 06:59 18:59 Intake Total 524 / 524 1529 / 1529 214 / 214 Balance 524 / 524 1529 / 1529 214 / 214 Weight 71.1 kg Intake: IV 524 / 524 1529 / 1529 214 / 214 NS Inj 1,000 ML @ 100 mls/hr IV 1000 / 1000 .CONT .Q10H BEENA Rx#:[id number] Zovirax Inj 700 MG In NS Inj 114 / 114 114 / 114 114 / 114 100 ML @ 114 mls/hr IV.SIG Q12HR BEENA Rx#:[id number] Maxipime Inj 2,000 MG In NS Inj 200 / 200 100 / 100 100 / 100 100 ML @ 200 mls/hr IV.SIG Q12H BEENA Rx#:[id number] Keppra Inj 500 MG In NS Inj 100 210 / 210 315 / 315 ML @ 400 mls/hr IV.SIG Q6H BEENA Rx#:[id number] Other: # Voids 13 Date of Last Bowel Movement 03/02/18 03/03/18 Narrative: GENERAL: Well-developed thin female resting in bed comfortably. SKIN: Warm and dry. Sternal tenderness with palpation. HEAD: Atraumatic. Normocephalic. EYES: Pupils equal and round. No scleral icterus. No injection or drainage. ENT: No nasal bleeding or discharge. Mucous membranes pink and moist. NECK: Trachea midline. CARDIOVASCULAR: Regular rate and rhythm. RESPIRATORY: No accessory muscle use. Clear to auscultation. Breath sounds equal bilaterally. GASTROINTESTINAL: Abdomen soft, non-tender, nondistended. MUSCULOSKELETAL: Extremities without clubbing, cyanosis, or edema. No obvious deformities. NEUROLOGICAL: Drowsy but easily awakens to voice. Oriented 3, following commands. no obvious cranial nerve deficits. Motor grossly within normal limits. Moving bilateral upper and lower extremities spontaneously, equal strength, no facial droop, normal speech. PSYCHIATRIC: Appropriate mood and affect; insight and judgment normal. - Urinary Catheter Management Indwelling Urethral Catheter Cath placed during this visit: yes, but has since been removed by the nurse Reason for continuing: Decision to DC catheter Insertion date: 03/01/18 Removal date: 03/02/18 Removal time: 19:00 Results - Labs CBC & Chem 7: 03/02/18 03:10 03/05/18 05:09 Laboratory Results - last 24 hr 03/04/18 03/04/18 03/05/18 18:04 21:40 05:09 Sodium 138 Potassium 3.6 Chloride 103 Carbon Dioxide 24.5 Anion Gap 11 BUN 15 Creatinine 1.09 H Estimated GFR 50 L POC Glucose 173 H 171 H Random Glucose 123 H D Calcium 8.4 L 03/05/18 03/05/18 07:30 12:51 Sodium Potassium Chloride Carbon Dioxide Anion Gap BUN Creatinine Estimated GFR POC Glucose 152 H 188 H Random Glucose Calcium Microbiology 02/28/18 19:25 Blood - Peripheral Aerobic Blood Culture - Final No growth in 5 days 02/28/18 19:25 Blood - Peripheral Anaerobic Blood Culture - Final No growth in 5 days 02/28/18 19:30 Blood - Peripheral Aerobic Blood Culture - Final No growth in 5 days 02/28/18 19:30 Blood - Peripheral Anaerobic Blood Culture - Final No growth in 5 days - Imaging Impressions Head MRI 03/04/18 00:00 CONCLUSION: 1. No acute intracranial abnormality is identified. There are no findings to indicate recent ischemia. 2. Chronic findings include mild generalized cerebral atrophy and mild periventricular and subcortical chronic white matter changes characteristic of chronic microvascular ischemia. Assessment and Plan - Assessment (1) Ureterolithiasis Code(s): N20.1 - Calculus of ureter Status: Acute Plan: Fall at home, possible syncope AMS speech disturbance - concern for CVA vs metabolic encephalopathy. Symptoms onset not known - she was found on the floor at home. Daughter reports of late there has been concern for early dementia. MRI brain reviewed and reveals: 1. No acute abnormality is seen. 2. Scattered areas of demyelination likely from small vessel ischemic change in the right. MRA neck reveals: Mild focal stenosis at the origin of the left internal carotid artery. Echo 03/01/18: The left ventricular systolic function is normal with an estimated ejection fraction in the range of 55-60%. Normal left ventricular size. Wall thickness is normal. No regional wall motion abnormalities are present. Aortic valve sclerosis is present. There is trace tricuspid valve regurgitation. The estimated pulmonary arterial pressure is 26.8 mmHg. continuous telemetry PT/OT/ST Asa 81 mg daily. consult to neurology Dr. Silva who ordered EEG, recommends consider lumbar puncture of patient's temperature elevates again with headache and other symptoms of meningitis Ureterolithiasis Urology consulted, patient seen by Dr. Varela planning possible right ureteral stent placement tomorrow, pending results of her syncope evaluation Patient does not have any pain IV fluids IV cefepime Blood cultures pending repeat CBC and BMP in AM HTN will hold home antihypertensive regiment, patient's BP has been running low asked nursing to take BPs manually Vasotec as needed DM with peripheral neuropathy hold metformin. SSI with accu checks. diabetic diet Cont Lyrica. Patient no longer has FHCP - patient transferred to [facility] service Dr. Noe Ferrer (2) Altered mental status Code(s): R41.82 - Altered mental status, unspecified Status: Acute (3) DAQUAN (acute kidney injury) Code(s): N17.9 - Acute kidney failure, unspecified Status: Acute (4) Fall Code(s): W19.XXXA - Unspecified fall, initial encounter Status: Acute - Plan 72-year-old female who presented to the hospital on 02/28 after daughter found patient down on the ground with confusion at home. AMS - speech disturbance -suspected ischemic stroke. -Head CT completed on 03/01: senescent changes w/o acute intracranial abnormality -Neck MRA completed 03/01: Mild focal stenosis at the origin of the left internal carotid artery. -Head MRI 03/01: No acute abnormality, scattered areas of demyelination vessel ischemic changes in the right. -Carotid ultrasound 03/02: Less than 50% stenosis on left and right internal carotid arteries. -Head CT completed 03/02: Negative, repeat CT on 03/03- - Echo with EF 55-60% no wall thickness abnormality, regional wall motion abnormalities. Aortic valve stenosis, trace tricuspid valve regurgitation. - s/p TPa with improvement in speech and mental status - PT/OT/ST -Aspirin Plavix on hold for planned LP, continue statin - Hypercoagulable labs ordered by neurology - Dr. Silva following appreciate assistance -Reported episodes of confusion or slurred speech Fall at home, possible syncope. No events recorded on telemetry, echo as noted above ? Herpes encephalitis -Discussed with Dr. Silva neurology -Fevers on admission, complaint of headache, and abnormal EEG as well as bizarre behavior suspicious for encephalitis -EEG completed 03/02 showing nonspecific left temporal region changes suspicious for epileptic activity -Patient started on Keppra IV as well as IV acyclovir -Plans for LP on Friday, if CSF negative for HSV can D/C Acyclovir -MRI is essentially unremarkable, MRA with noted moderate arthrosclerotic vascular disease. -Seizure precautions Ureterolithiasis. Fevers Abdomen/pelvic CT completed on 02/28: Obstructive uropathy on the right side due to 6 mm calcified stone in the proximal right ureter Urology following, appreciate assistance. -Renal ultrasound completed 03/03 shows stable mild right hydronephrosis, similar to prior CT, no mass or stone visualized. -Patient voiding with episodes of incontinence, UA rechecked, and negative. Discontinue cefepime, completed 5 day course. -Voiding without any dysuria, no episode of incontinence. DAQUAN, likely secondary to above - s/p IV fluids, creatinine continues to improve Diabetes mellitus with peripheral neuropathy -Continue to hold metformin -Hemoglobin A1c 6.9 -Continue cardiac and diabetic diet - Accu-checks with ISS, blood sugars improved -Continue Lyrica HTN -normotensive, continue to monitor RLS -Continue Requip Sternal tenderness -Most likely musculoskeletal in nature due to fall as this is reproducible and worse with coughing -Conservative treatment, as needed Tylenol DVT prophylaxis-ambulation/SCD's Discussed Condition With: Discussed with patient and RN
[2018-03-05 15:52] LABS: Dil Russell Viper Venom Conf ( ND (NEGATIVE); Dil Russell Viper Venom Time M ND (CORRECTED); Lupus Anticoagulant PTT Screen 48 seconds (< OR = 40)
--- NOTE | 2018-03-05 17:45 | P.PNNEU ---
Subjective Subjective Comments: no recurrent episodes of confusion or dysarthria. Active Medications: Active Medications Acetaminophen (Tylenol) 650 mg PO Q4H PRN PRN Reason: Temp > 100.4 Last Admin: 03/03/18 12:14 Dose: 650 mg Hydrocodone Bitart/Acetaminophen (Arabi 5/325) 1 tab PO Q6H PRN PRN Reason: Pain 5-10 Last Admin: 03/04/18 09:32 Dose: 1 tab Al Hydroxide/Mg Hydroxide (Milk Of Magnesia Liq) 30 ml PO Q12H PRN PRN Reason: Mild Constipation Bisacodyl (Dulcolax Supp) 10 mg RECTAL DAILY PRN PRN Reason: SEVERE CONSITIPATION Dextrose (D50w Vial) 50 ml IV.PUSH UNSCH PRN PRN Reason: PER HYPOGLYCEMIA PROTOCOL Enalaprilat (Vasotec Inj) 1.25 mg IV.PUSH Q4H PRN PRN Reason: For SBP > 220 or DBP > 120 Escitalopram Oxalate (Lexapro) 20 mg PO DAILY [facility] Last Admin: 03/05/18 09:32 Dose: 20 mg Glucagon (Glucagon Inj) 1 mg OTHER PRN PRN PRN Reason: for Hypoglycemia Protocol Sodium Chloride (Ns Inj) 1,000 mls @ 100 mls/hr IV.CONT .Q10H BEENA Last Admin: 03/05/18 16:59 Dose: Not Given Cefepime HCl 2,000 mg/ Sodium (Chloride) 100 mls @ 200 mls/hr IV.SIG Q12H BEENA Last Infusion: 03/05/18 10:03 Dose: Infused Acetaminophen (Ofirmev Inj) 1,000 mg in 100 mls @ 400 mls/hr IV.SIG Q6H PRN PRN Reason: TEMPERATURE > 101 F /PAIN 1-10 Last Infusion: 03/01/18 21:13 Dose: Infused Acyclovir Sodium 700 mg/ (Sodium Chloride) 114 mls @ 114 mls/hr IV.SIG Q12HR BEENA Last Infusion: 03/05/18 11:05 Dose: Infused Insulin Human Regular (Novolin R Correctional Sugar Inj) 0 units SQ ACHS BEENA; Protocol Last Admin: 03/05/18 17:04 Dose: Not Given Lactulose (Lactulose Liq) 30 ml PO DAILY PRN PRN Reason: SEVERE CONSITIPATION Levetiracetam (Keppra) 1,000 mg PO BID [facility] Ondansetron HCl (Zofran Inj) 4 mg IV.PUSH Q6H PRN PRN Reason: NAUSEA OR VOMITING Pantoprazole Sodium (Protonix) 40 mg PO DAILY [facility] Last Admin: 03/05/18 09:32 Dose: 40 mg Pravastatin Sodium (Pravachol) 40 mg PO DAILY [facility] Last Admin: 03/05/18 09:32 Dose: 40 mg Pregabalin (Lyrica) 25 mg PO TID [facility] Last Admin: 03/05/18 17:07 Dose: Not Given Ropinirole HCl (Requip) 0.5 mg PO HS [facility] Last Admin: 03/05/18 16:55 Dose: 0.5 mg Ropinirole HCl (Requip) 0.25 mg PO TIDAC [facility] Last Admin: 03/05/18 16:56 Dose: 0.25 mg Sennosides (Senokot) 17.2 mg PO Q12H PRN PRN Reason: Moderate Constipation Last Admin: 03/05/18 09:32 Dose: 17.2 mg Sodium Chloride (Ns Flush) 2 ml IV.FLUSH BID [facility] Last Admin: 03/05/18 09:33 Dose: 2 ml Sodium Chloride (Ns Flush) 2 ml IV.FLUSH PRN PRN PRN Reason: FLUSH AFTER USING IV ACCESS Allergies/Adverse Reactions: Allergies Allergy/AdvReac Type Severity Reaction Status Date / Time latex Allergy Severe Rash Verified 02/28/18 19:51 phenobarbital Allergy Severe Dizziness Verified 02/28/18 19:51 Physical Exam Vital signs: Vital Signs 03/04/18 20:00 03/05/18 00:00 03/05/18 04:00 Temperature 97.9 F 98.0 F 98.1 F Pulse Rate 82 88 90 Respiratory Rate 17 17 18 Blood Pressure 134/74 140/74 149/76 H Pulse Oximetry 95 93 L 94 L 03/05/18 08:00 03/05/18 12:00 Temperature 98.1 F 98.0 F Pulse Rate 81 90 Respiratory Rate 18 18 Blood Pressure 144/67 H 128/61 Pulse Oximetry 96 93 L Intake & Output 03/04/18 03/05/18 03/05/18 18:59 06:59 18:59 Intake Total 524 / 524 1529 / 1529 424 / 424 Balance 524 / 524 1529 / 1529 424 / 424 Weight 71.1 kg Intake: IV 524 / 524 1529 / 1529 424 / 424 NS Inj 1,000 ML @ 100 mls/hr IV 1000 / 1000 .CONT .Q10H BEENA Rx#:[id number] Zovirax Inj 700 MG In NS Inj 114 / 114 114 / 114 114 / 114 100 ML @ 114 mls/hr IV.SIG Q12HR BEENA Rx#:[id number] Maxipime Inj 2,000 MG In NS Inj 200 / 200 100 / 100 100 / 100 100 ML @ 200 mls/hr IV.SIG Q12H [facility]EENA Rx#:[id number] Keppra Inj 500 MG In NS Inj 100 210 / 210 315 / 315 210 / 210 ML @ 400 mls/hr IV.SIG Q6H BEENA Rx#:[id number] Other: # Voids 13 Date of Last Bowel Movement 03/02/18 03/03/18 - Routine Neurological Exam alert, speech normal CN intact MOTOR 5/5 BUE - Urinary Catheter Management Indwelling Urethral Catheter Cath placed during this visit: yes, but has since been removed by the nurse Reason for continuing: Decision to DC catheter Insertion date: 03/01/18 Removal date: 03/02/18 Removal time: 19:00 Objective Radiology Results: MRI brain--normal Laboratory Results - last 24 hr 03/03/18 03/04/18 03/04/18 07:33 18:04 21:40 Thrombin Time 17 Lupus Anticoagulant LA PTT Screen 48 H dRVVT Screen 45 LA dRVVT Confirm ND dRVVT Mix ND Hexagonal Phase Confirm Weakly positive A Sodium Potassium Chloride Carbon Dioxide Anion Gap BUN Creatinine Estimated GFR POC Glucose 173 H 171 H Random Glucose Calcium 03/05/18 03/05/18 03/05/18 05:09 07:30 12:51 Thrombin Time Lupus Anticoagulant LA PTT Screen dRVVT Screen LA dRVVT Confirm dRVVT Mix Hexagonal Phase Confirm Sodium 138 Potassium 3.6 Chloride 103 Carbon Dioxide 24.5 Anion Gap 11 BUN 15 Creatinine 1.09 H Estimated GFR 50 L POC Glucose 152 H 188 H Random Glucose 123 H D Calcium 8.4 L 03/05/18 17:01 Thrombin Time Lupus Anticoagulant LA PTT Screen dRVVT Screen LA dRVVT Confirm dRVVT Mix Hexagonal Phase Confirm Sodium Potassium Chloride Carbon Dioxide Anion Gap BUN Creatinine Estimated GFR POC Glucose 131 H Random Glucose Calcium Microbiology 02/28/18 19:25 Aerobic Blood Culture - Final Blood - Peripheral No growth in 5 days Anaerobic Blood Culture - Final No growth in 5 days 02/28/18 19:30 Aerobic Blood Culture - Final Blood - Peripheral No growth in 5 days Anaerobic Blood Culture - Final No growth in 5 days Review/Management - Diagnosis (1) Stroke Code(s): I63.9 - Cerebral infarction, unspecified Status: Acute Current Visit: Yes (2) Seizure Code(s): R56.9 - Unspecified convulsions Status: Acute Current Visit: Yes - Review/Management Plan: possible temporal lobe seizure. continue keppra. , LP to r/o encephalitis. Continue acyclovir for know . If CSF HSV pcr negative can stop acyclovir.
[2018-03-05 17:52] LABS: Bilirubin,Urine Negative (Negative); Clarity,Urine Clear (Clear); Color,Urine Yellow (Yellw/Straw); Glucose,Urine (UA) Negative (Negative); Leukocyte Esterase,Urine Negative (Negative); Mucus,Urine Few /lpf (Occasional); Nitrite,Urine Negative (Negative); Squamous Epithelial Cell,Urine 1 /hpf (0-5)
[2018-03-05] MEDS: levETIRAcetam 500 MG Tablet PO SCH (21:59)
[2018-03-05 23:27] LABS: Factor V Leiden Mutation Negative (Negative)
--- NOTE | 2018-03-06 00:42 | MG ---
cc: Peterson Mukherjee MD ELECTROENCEPHALOGRAM RECORD NUMBER: [id number] A 5-6 Hz posterior rhythm 10-30microvolts followed by delta intrusion and data transition into drowsy state followed by stage I sleep. Snoring. Right leg twitching and epoch 16. No epileptic correlation. Left temporal T3 sharp wave, epoch 31. Sharply contoured small cluster beta activity lasting a couple of seconds. Slow left temporal sharps. Appeared to go in and out of sleep state, reduced driving with photic stimulation. Single lead EKG showed sinus rhythm. Good EEG variability reactivity overall. INTERPRETATION: Mild left temporal region irritability. Mild encephalopathy sleep state. No active seizures. Clinical correlation. Peterson Mukherjee MD MG/sv/ll , 10:11 PM , 10:16 PM JOSELO
[2018-03-06] MEDS: Sod Chloride 0.9% Inj 1,000 ML IV.CONT SCH ×3 (06:36→19:00)
[2018-03-06] MEDS: Acyclovir Inj 700 MG in Sodium Chlor 0.9% Inj 100 ML IV.SIG SCH ×2 (10:00→21:57)
[2018-03-06] MEDS: levETIRAcetam 500 MG Tablet PO SCH ×2 (11:44→21:21)
[2018-03-06] MEDS: Pregabalin 25 MG Capsule PO SCH ×3 (11:45→18:59)
[2018-03-06] MEDS: Insulin NovoLIN Regular Correctional Sugar Inj SQ SCH ×4 (11:49→21:22)
--- NOTE | 2018-03-06 14:27 | P.PN ---
Physical Exam Vital signs: Vital Signs 03/05/18 16:00 03/05/18 20:00 03/06/18 00:00 Temperature 99.1 F 97.9 F 97.9 F Pulse Rate 83 84 83 Respiratory Rate 18 18 18 Blood Pressure 127/65 139/65 146/65 H Pulse Oximetry 94 L 92 L 92 L 03/06/18 02:28 03/06/18 04:00 Temperature 98.3 F Pulse Rate 77 Respiratory Rate 16 18 Blood Pressure 132/71 Pulse Oximetry 92 L Intake & Output 03/05/18 03/06/18 03/06/18 18:59 06:59 18:59 Intake Total 424 / 424 114 / 114 Balance 424 / 424 114 / 114 Weight 71.1 kg Intake: IV 424 / 424 114 / 114 Zovirax Inj 700 MG In NS Inj 114 / 114 114 / 114 100 ML @ 114 mls/hr IV.SIG Q12HR BEENA Rx#:[id number] Maxipime Inj 2,000 MG In NS Inj 100 / 100 100 ML @ 200 mls/hr IV.SIG Q12H BEENA Rx#:[id number] Keppra Inj 500 MG In NS Inj 100 210 / 210 ML @ 400 mls/hr IV.SIG Q6H BEENA Rx#:[id number] Other: Date of Last Bowel Movement 03/03/18 03/03/18 - Urinary Catheter Management Indwelling Urethral Catheter Cath placed during this visit: yes, but has since been removed by the nurse Reason for continuing: Decision to DC catheter Insertion date: 03/01/18 Removal date: 03/02/18 Removal time: 19:00 Results - Labs CBC & Chem 7: 03/02/18 03:10 03/05/18 05:09 Laboratory Results - last 24 hr 03/03/18 03/03/18 03/05/18 07:33 07:33 17:01 Thrombin Time 17 Lupus Anticoagulant LA PTT Screen 48 H dRVVT Screen 45 LA dRVVT Confirm ND dRVVT Mix ND Hexagonal Phase Confirm Weakly positive A Factor V Leiden Mutat Negative Factor V Leiden Interp . Fact V Leiden Review By See below POC Glucose 131 H Urine Color Urine Clarity Urine pH Ur Specific [place] Urine Protein Urine Glucose (UA) Urine Ketones Urine Occult Blood Urine Nitrate Urine Bilirubin Urine Urobilinogen Ur Leukocyte Esterase Urine RBC Urine WBC Ur Squamous Epith Cells Urine Mucus Micro UA Comment Ur Microscopic Review Urine Culture Comments 03/05/18 03/05/18 03/06/18 17:08 19:48 09:22 Thrombin Time Lupus Anticoagulant LA PTT Screen dRVVT Screen LA dRVVT Confirm dRVVT Mix Hexagonal Phase Confirm Factor V Leiden Mutat Factor V Leiden Interp Fact V Leiden Review By POC Glucose 151 H 290 H Urine Color Yellow Urine Clarity Clear Urine pH 6.0 Ur Specific [place] 1.010 Urine Protein 30 H Urine Glucose (UA) Negative Urine Ketones Negative Urine Occult Blood Moderate H Urine Nitrate Negative Urine Bilirubin Negative Urine Urobilinogen 2.0 H Ur Leukocyte Esterase Negative Urine RBC 1 Urine WBC 1 Ur Squamous Epith Cells 1 Urine Mucus Few H Micro UA Comment Culture not ind Ur Microscopic Review Not Reportable Urine Culture Comments Culture not ind 03/06/18 12:08 Thrombin Time Lupus Anticoagulant LA PTT Screen dRVVT Screen LA dRVVT Confirm dRVVT Mix Hexagonal Phase Confirm Factor V Leiden Mutat Factor V Leiden Interp Fact V Leiden Review By POC Glucose 137 H Urine Color Urine Clarity Urine pH Ur Specific [place] Urine Protein Urine Glucose (UA) Urine Ketones Urine Occult Blood Urine Nitrate Urine Bilirubin Urine Urobilinogen Ur Leukocyte Esterase Urine RBC Urine WBC Ur Squamous Epith Cells Urine Mucus Micro UA Comment Ur Microscopic Review Urine Culture Comments Microbiology 02/28/18 19:25 Blood - Peripheral Aerobic Blood Culture - Final No growth in 5 days 02/28/18 19:25 Blood - Peripheral Anaerobic Blood Culture - Final No growth in 5 days 02/28/18 19:30 Blood - Peripheral Aerobic Blood Culture - Final No growth in 5 days 02/28/18 19:30 Blood - Peripheral Anaerobic Blood Culture - Final No growth in 5 days Assessment and Plan - Assessment (1) Ureterolithiasis Code(s): N20.1 - Calculus of ureter Status: Acute Plan: Fall at home, possible syncope AMS speech disturbance - concern for CVA vs metabolic encephalopathy. Symptoms onset not known - she was found on the floor at home. Daughter reports of late there has been concern for early dementia. MRI brain reviewed and reveals: 1. No acute abnormality is seen. 2. Scattered areas of demyelination likely from small vessel ischemic change in the right. MRA neck reveals: Mild focal stenosis at the origin of the left internal carotid artery. Echo 03/01/18: The left ventricular systolic function is normal with an estimated ejection fraction in the range of 55-60%. Normal left ventricular size. Wall thickness is normal. No regional wall motion abnormalities are present. Aortic valve sclerosis is present. There is trace tricuspid valve regurgitation. The estimated pulmonary arterial pressure is 26.8 mmHg. continuous telemetry PT/OT/ST Asa 81 mg daily. consult to neurology Dr. Silva who ordered EEG, recommends consider lumbar puncture of patient's temperature elevates again with headache and other symptoms of meningitis Ureterolithiasis Urology consulted, patient seen by Dr. Varela planning possible right ureteral stent placement tomorrow, pending results of her syncope evaluation Patient does not have any pain IV fluids IV cefepime Blood cultures pending repeat CBC and BMP in AM HTN will hold home antihypertensive regiment, patient's BP has been running low asked nursing to take BPs manually Vasotec as needed DM with peripheral neuropathy hold metformin. SSI with accu checks. diabetic diet Cont Lyrica. Patient no longer has FHCP - patient transferred to [facility] service Dr. Noe Ferrer (2) Altered mental status Code(s): R41.82 - Altered mental status, unspecified Status: Acute (3) DAQUAN (acute kidney injury) Code(s): N17.9 - Acute kidney failure, unspecified Status: Acute (4) Fall Code(s): W19.XXXA - Unspecified fall, initial encounter Status: Acute - Plan 72-year-old female who presented to the hospital on 02/28 after daughter found patient down on the ground with confusion at home. AMS - speech disturbance -suspected ischemic stroke. -Head CT completed on 03/01: senescent changes w/o acute intracranial abnormality -Neck MRA completed 03/01: Mild focal stenosis at the origin of the left internal carotid artery. -Head MRI 03/01: No acute abnormality, scattered areas of demyelination vessel ischemic changes in the right. -Carotid ultrasound 03/02: Less than 50% stenosis on left and right internal carotid arteries. -Head CT completed 03/02: Negative, repeat CT on 03/03- - Echo with EF 55-60% no wall thickness abnormality, regional wall motion abnormalities. Aortic valve stenosis, trace tricuspid valve regurgitation. - s/p TPa with improvement in speech and mental status - PT/OT/ST -Aspirin Plavix on hold for planned LP, continue statin - Hypercoagulable labs ordered by neurology - Dr. Silva following appreciate assistance -Reported episodes of confusion or slurred speech Fall at home, possible syncope. No events recorded on telemetry, echo as noted above ? Herpes encephalitis -Discussed with Dr. Silva neurology -Fevers on admission, complaint of headache, and abnormal EEG as well as bizarre behavior suspicious for encephalitis -EEG completed 03/02 showing nonspecific left temporal region changes suspicious for epileptic activity -Patient started on Keppra IV as well as IV acyclovir -Plans for LP on Friday, if CSF negative for HSV can D/C Acyclovir -MRI is essentially unremarkable, MRA with noted moderate arthrosclerotic vascular disease. -Seizure precautions Ureterolithiasis. Fevers Abdomen/pelvic CT completed on 02/28: Obstructive uropathy on the right side due to 6 mm calcified stone in the proximal right ureter Urology following, appreciate assistance. -Renal ultrasound completed 03/03 shows stable mild right hydronephrosis, similar to prior CT, no mass or stone visualized. -Patient voiding with episodes of incontinence, UA rechecked, and negative. Discontinue cefepime, completed 5 day course. -Voiding without any dysuria, no episode of incontinence. DAQUAN, likely secondary to above - s/p IV fluids, creatinine continues to improve Diabetes mellitus with peripheral neuropathy -Continue to hold metformin -Hemoglobin A1c 6.9 -Continue cardiac and diabetic diet - Accu-checks with ISS, blood sugars improved -Continue Lyrica HTN -normotensive, continue to monitor RLS -Continue Requip Sternal tenderness -Most likely musculoskeletal in nature due to fall as this is reproducible and worse with coughing -Conservative treatment, as needed Tylenol DVT prophylaxis-ambulation/SCD's
--- NOTE | 2018-03-06 15:33 | P.PN ---
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 Patient was seen ambulating in the [place] with assistance of physical therapy. She is examined resting in bed comfortably, appears to be in no acute distress. She is requesting speech therapy for evaluation, feels as if she is having difficulty finding words at times. Also complaining of some ongoing posterior neck pain, along with chills. She denies any cough, shortness of breath, nausea, vomiting. Voiding without any dysuria, denies abdominal pain or discomfort. Physical Exam Vital signs: Vital Signs 03/05/18 16:00 03/05/18 20:00 03/06/18 00:00 Temperature 99.1 F 97.9 F 97.9 F Pulse Rate 83 84 83 Respiratory Rate 18 18 18 Blood Pressure 127/65 139/65 146/65 H Pulse Oximetry 94 L 92 L 92 L 03/06/18 02:28 03/06/18 04:00 Temperature 98.3 F Pulse Rate 77 Respiratory Rate 16 18 Blood Pressure 132/71 Pulse Oximetry 92 L Intake & Output 03/05/18 03/06/18 03/06/18 18:59 06:59 18:59 Intake Total 424 / 424 114 / 114 Balance 424 / 424 114 / 114 Weight 71.1 kg Intake: IV 424 / 424 114 / 114 Zovirax Inj 700 MG In NS Inj 114 / 114 114 / 114 100 ML @ 114 mls/hr IV.SIG Q12HR BEENA Rx#:[id number] Maxipime Inj 2,000 MG In NS Inj 100 / 100 100 ML @ 200 mls/hr IV.SIG Q12H BEENA Rx#:[id number] Keppra Inj 500 MG In NS Inj 100 210 / 210 ML @ 400 mls/hr IV.SIG Q6H BEENA Rx#:[id number] Other: Date of Last Bowel Movement 03/03/18 03/03/18 Narrative: GENERAL: Well-developed thin female resting in bed comfortably. SKIN: Warm and dry. HEAD: Atraumatic. Normocephalic. EYES: Pupils equal and round. No scleral icterus. No injection or drainage. ENT: No nasal bleeding or discharge. Mucous membranes pink and moist. NECK: Trachea midline. CARDIOVASCULAR: Regular rate and rhythm. RESPIRATORY: No accessory muscle use. Clear to auscultation. Breath sounds equal bilaterally. GASTROINTESTINAL: Abdomen soft, non-tender, nondistended. MUSCULOSKELETAL: Extremities without clubbing, cyanosis, or edema. No obvious deformities. NEUROLOGICAL: Awake and alert. Oriented 3, following commands. no obvious cranial nerve deficits. Motor grossly within normal limits. Moving bilateral upper and lower extremities spontaneously, equal strength, no facial droop, normal speech. PSYCHIATRIC: Appropriate mood and affect; insight and judgment normal. - Urinary Catheter Management Indwelling Urethral Catheter Cath placed during this visit: yes, but has since been removed by the nurse Reason for continuing: Decision to DC catheter Insertion date: 03/01/18 Removal date: 03/02/18 Removal time: 19:00 Results - Labs CBC & Chem 7: 03/02/18 03:10 03/05/18 05:09 Laboratory Results - last 24 hr 03/03/18 03/03/18 03/05/18 07:33 07:33 17:01 Thrombin Time 17 Lupus Anticoagulant LA PTT Screen 48 H dRVVT Screen 45 LA dRVVT Confirm ND dRVVT Mix ND Hexagonal Phase Confirm Weakly positive A Factor V Leiden Mutat Negative Factor V Leiden Interp . Fact V Leiden Review By See below POC Glucose 131 H Urine Color Urine Clarity Urine pH Ur Specific [place] Urine Protein Urine Glucose (UA) Urine Ketones Urine Occult Blood Urine Nitrate Urine Bilirubin Urine Urobilinogen Ur Leukocyte Esterase Urine RBC Urine WBC Ur Squamous Epith Cells Urine Mucus Micro UA Comment Ur Microscopic Review Urine Culture Comments 03/05/18 03/05/18 03/06/18 17:08 19:48 09:22 Thrombin Time Lupus Anticoagulant LA PTT Screen dRVVT Screen LA dRVVT Confirm dRVVT Mix Hexagonal Phase Confirm Factor V Leiden Mutat Factor V Leiden Interp Fact V Leiden Review By POC Glucose 151 H 290 H Urine Color Yellow Urine Clarity Clear Urine pH 6.0 Ur Specific [place] 1.010 Urine Protein 30 H Urine Glucose (UA) Negative Urine Ketones Negative Urine Occult Blood Moderate H Urine Nitrate Negative Urine Bilirubin Negative Urine Urobilinogen 2.0 H Ur Leukocyte Esterase Negative Urine RBC 1 Urine WBC 1 Ur Squamous Epith Cells 1 Urine Mucus Few H Micro UA Comment Culture not ind Ur Microscopic Review Not Reportable Urine Culture Comments Culture not ind 03/06/18 12:08 Thrombin Time Lupus Anticoagulant LA PTT Screen dRVVT Screen LA dRVVT Confirm dRVVT Mix Hexagonal Phase Confirm Factor V Leiden Mutat Factor V Leiden Interp Fact V Leiden Review By POC Glucose 137 H Urine Color Urine Clarity Urine pH Ur Specific [place] Urine Protein Urine Glucose (UA) Urine Ketones Urine Occult Blood Urine Nitrate Urine Bilirubin Urine Urobilinogen Ur Leukocyte Esterase Urine RBC Urine WBC Ur Squamous Epith Cells Urine Mucus Micro UA Comment Ur Microscopic Review Urine Culture Comments Assessment and Plan - Assessment (1) Ureterolithiasis Code(s): N20.1 - Calculus of ureter Status: Acute Plan: Fall at home, possible syncope AMS speech disturbance - concern for CVA vs metabolic encephalopathy. Symptoms onset not known - she was found on the floor at home. Daughter reports of late there has been concern for early dementia. MRI brain reviewed and reveals: 1. No acute abnormality is seen. 2. Scattered areas of demyelination likely from small vessel ischemic change in the right. MRA neck reveals: Mild focal stenosis at the origin of the left internal carotid artery. Echo 03/01/18: The left ventricular systolic function is normal with an estimated ejection fraction in the range of 55-60%. Normal left ventricular size. Wall thickness is normal. No regional wall motion abnormalities are present. Aortic valve sclerosis is present. There is trace tricuspid valve regurgitation. The estimated pulmonary arterial pressure is 26.8 mmHg. continuous telemetry PT/OT/ST Asa 81 mg daily. consult to neurology Dr. Silva who ordered EEG, recommends consider lumbar puncture of patient's temperature elevates again with headache and other symptoms of meningitis Ureterolithiasis Urology consulted, patient seen by Dr. Varela planning possible right ureteral stent placement tomorrow, pending results of her syncope evaluation Patient does not have any pain IV fluids IV cefepime Blood cultures pending repeat CBC and BMP in AM HTN will hold home antihypertensive regiment, patient's BP has been running low asked nursing to take BPs manually Vasotec as needed DM with peripheral neuropathy hold metformin. SSI with accu checks. diabetic diet Cont Lyrica. Patient no longer has FHCP - patient transferred to [facility] service Dr. Noe Ferrer (2) Altered mental status Code(s): R41.82 - Altered mental status, unspecified Status: Acute (3) DAQUAN (acute kidney injury) Code(s): N17.9 - Acute kidney failure, unspecified Status: Acute (4) Fall Code(s): W19.XXXA - Unspecified fall, initial encounter Status: Acute - Plan -year-old female who presented to the hospital on 02/28 after daughter found patient down on the ground with confusion at home. AMS - speech disturbance -suspected ischemic stroke. -Head CT completed on 03/01: senescent changes w/o acute intracranial abnormality -Neck MRA completed 03/01: Mild focal stenosis at the origin of the left internal carotid artery. -Head MRI 03/01: No acute abnormality, scattered areas of demyelination vessel ischemic changes in the right. -Carotid ultrasound 03/02: Less than 50% stenosis on left and right internal carotid arteries. -Head CT completed 03/02: Negative, repeat CT on 03/03-negative - Echo with EF 55-60% no wall thickness abnormality, regional wall motion abnormalities. Aortic valve stenosis, trace tricuspid valve regurgitation. - s/p TPa with improvement in speech and mental status - PT/OT/ST -Aspirin Plavix on hold for planned LP, continue statin - Hypercoagulable labs ordered by neurology - Dr. Silva following appreciate assistance -No recent changes in neurological status. Fall at home, possible syncope. No events recorded on telemetry, echo as noted above ? Herpes encephalitis -Discussed with Dr. Silva neurology -Fevers on admission, complaint of headache, and abnormal EEG as well as bizarre behavior suspicious for encephalitis -EEG completed 03/02 showing nonspecific left temporal region changes suspicious for epileptic activity -Patient started on Keppra IV as well as IV acyclovir -Plans for LP on Friday, if CSF negative for HSV can D/C Acyclovir -MRI is essentially unremarkable, MRA with noted moderate arthrosclerotic vascular disease. -Seizure precautions Ureterolithiasis. Fevers Abdomen/pelvic CT completed on 02/28: Obstructive uropathy on the right side due to 6 mm calcified stone in the proximal right ureter Urology following, appreciate assistance. -Renal ultrasound completed 03/03 shows stable mild right hydronephrosis, similar to prior CT, no mass or stone visualized. -Patient voiding with episodes of incontinence, UA rechecked, and negative. Discontinue cefepime, completed 5 day course. -Voiding without any dysuria, no episode of incontinence. DAQUAN, likely secondary to above - s/p IV fluids, recheck BMP in the a.m. 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
[2018-03-06 16:29] LABS: Protein C Antigen 92 % (70-150); Protein S Antigen Free 92 % (65 - 160)
--- NOTE | 2018-03-06 19:55 | P.PNNEU ---
Subjective Subjective Comments: better today. mental status normal Active Medications: Active Medications Acetaminophen (Tylenol) 650 mg PO Q4H PRN PRN Reason: Temp > 100.4 Last Admin: 03/03/18 12:14 Dose: 650 mg Hydrocodone Bitart/Acetaminophen ([place] 5/325) 1 tab PO Q6H PRN PRN Reason: Pain 5-10 Last Admin: 03/06/18 18:58 Dose: 1 tab Al Hydroxide/Mg Hydroxide (Milk Of Magnesia Liq) 30 ml PO Q12H PRN PRN Reason: Mild Constipation Bisacodyl (Dulcolax Supp) 10 mg RECTAL DAILY PRN PRN Reason: SEVERE CONSITIPATION Dextrose (D50w Vial) 50 ml IV.PUSH UNSCH PRN PRN Reason: PER HYPOGLYCEMIA PROTOCOL Enalaprilat (Vasotec Inj) 1.25 mg IV.PUSH Q4H PRN PRN Reason: For SBP > 220 or DBP > 120 Escitalopram Oxalate (Lexapro) 20 mg PO DAILY FORMERLY [facility], [facility]1983 Last Admin: 03/06/18 11:45 Dose: 20 mg Glucagon (Glucagon Inj) 1 mg OTHER PRN PRN PRN Reason: for Hypoglycemia Protocol Sodium Chloride (Ns Inj) 1,000 mls @ 100 mls/hr IV.CONT .Q10H [facility], [facility] Last Admin: 03/06/18 11:54 Dose: Not Given Acetaminophen (Ofirmev Inj) 1,000 mg in 100 mls @ 400 mls/hr IV.SIG Q6H PRN PRN Reason: TEMPERATURE > 101 F /PAIN 1-10 Last Infusion: 03/01/18 21:13 Dose: Infused Acyclovir Sodium 700 mg/ (Sodium Chloride) 114 mls @ 114 mls/hr IV.SIG Q12HR BEENA Last Admin: 03/06/18 10:00 Dose: 100 mls/hr Insulin Human Regular (Novolin R Correctional Sugar Inj) 0 units SQ ACHS FORMERLY [facility], [facility]1983; Protocol Last Admin: 03/06/18 11:49 Dose: Not Given Lactulose (Lactulose Liq) 30 ml PO DAILY PRN PRN Reason: SEVERE CONSITIPATION Levetiracetam (Keppra) 1,000 mg PO BID [facility], [facility] Last Admin: 03/06/18 11:44 Dose: 1,000 mg Ondansetron HCl (Zofran Inj) 4 mg IV.PUSH Q6H PRN PRN Reason: NAUSEA OR VOMITING Pantoprazole Sodium (Protonix) 40 mg PO DAILY [facility], [facility] Last Admin: 03/06/18 11:45 Dose: 40 mg Pravastatin Sodium (Pravachol) 40 mg PO DAILY [facility], [facility] Last Admin: 03/06/18 11:45 Dose: 40 mg Pregabalin (Lyrica) 25 mg PO TID [facility], [facility] Last Admin: 03/06/18 18:59 Dose: 25 mg Ropinirole HCl (Requip) 0.5 mg PO HS [facility], [facility] Last Admin: 03/05/18 21:59 Dose: 0.5 mg Ropinirole HCl (Requip) 0.25 mg PO TIDAC [facility]LY [facility], [facility] Last Admin: 03/06/18 18:59 Dose: 0.25 mg Sennosides (Senokot) 17.2 mg PO Q12H PRN PRN Reason: Moderate Constipation Last Admin: 03/05/18 09:32 Dose: 17.2 mg Sodium Chloride (Ns Flush) 2 ml IV.FLUSH BID [facility], [facility] Last Admin: 03/06/18 11:49 Dose: 2 ml Sodium Chloride (Ns Flush) 2 ml IV.FLUSH PRN PRN PRN Reason: FLUSH AFTER USING IV ACCESS Allergies/Adverse Reactions: Allergies Allergy/AdvReac Type Severity Reaction Status Date / Time latex Allergy Severe Rash Verified 02/28/18 19:51 phenobarbital Allergy Severe Dizziness Verified 02/28/18 19:51 Physical Exam Vital signs: Vital Signs 03/05/18 20:00 03/06/18 00:00 03/06/18 02:28 Temperature 97.9 F 97.9 F Pulse Rate 84 83 Respiratory Rate 18 18 16 Blood Pressure 139/65 146/65 H Pulse Oximetry 92 L 92 L 03/06/18 04:00 03/06/18 12:00 Temperature 98.3 F 98.9 F Pulse Rate 77 78 Respiratory Rate 18 18 Blood Pressure 132/71 153/71 H Pulse Oximetry 92 L 92 L Intake & Output 03/06/18 03/06/18 03/07/18 06:59 18:59 06:59 Intake Total 114 / 114 Balance 114 / 114 Weight 71.1 kg Intake: IV 114 / 114 Zovirax Inj 700 MG In NS Inj 114 / 114 100 ML @ 114 mls/hr IV.SIG Q12HR [facility] Rx#:[id number] Other: Date of Last Bowel Movement 03/03/18 03/06/18 - Routine Neurological Exam alert, oriented. speech normal CN intact MOTOR normal Gait normal - Urinary Catheter Management Indwelling Urethral Catheter Cath placed during this visit: yes, but has since been removed by the nurse Reason for continuing: Decision to DC catheter Insertion date: 03/01/18 Removal date: 03/02/18 Removal time: 19:00 Objective Laboratory Results - last 24 hr 03/03/18 03/03/18 03/03/18 07:33 07:33 07:33 Protein C Antigen 92 Free Protein S Antigen 92 Factor V Leiden Mutat Negative Factor V Leiden Interp . Fact V Leiden Review By See below POC Glucose Anti-Cardiolipin IgG Ab <9.4 Anti-Cardiolipin IgM Ab <9.4 Prothrombin [id number] Mut 03/05/18 03/06/18 03/06/18 19:48 09:22 12:08 Protein C Antigen Free Protein S Antigen Factor V Leiden Mutat Factor V Leiden Interp Fact V Leiden Review By POC Glucose 151 H 290 H 137 H Anti-Cardiolipin IgG Ab Anti-Cardiolipin IgM Ab Prothrombin [id number] Mut 03/06/18 03/06/18 16:18 17:45 Protein C Antigen Free Protein S Antigen Factor V Leiden Mutat Factor V Leiden Interp Fact V Leiden Review By POC Glucose 144 H 142 H Anti-Cardiolipin IgG Ab Anti-Cardiolipin IgM Ab Prothrombin [id number] Mut Review/Management - Diagnosis (1) Stroke Code(s): I63.9 - Cerebral infarction, unspecified Status: Acute Current Visit: Yes (2) Seizure Code(s): R56.9 - Unspecified convulsions Status: Acute Current Visit: Yes - Review/Management Plan: temporal lobe seizure. continue keppra. , LP to r/o encephalitis. Continue acyclovir for now . If CSF HSV pcr negative can stop acyclovir.
[2018-03-07] MEDS: Sod Chloride 0.9% Inj 1,000 ML IV.CONT SCH ×2 (06:27→16:36)
[2018-03-07 06:28] LABS: Baso # (Auto) 0.1 th/mm3 (0.0-0.2); Baso % (Auto) 0.8 % (0.0-2.0); Eos # (Auto) 0.3 th/mm3 (0.0-0.4); Eos % (Auto) 3.7 % (0.0-4.0); Hematocrit 35.4 % (35.0-46.0); Hemoglobin 12.2 gm/dL (11.6-15.3); Lymph # (Auto) 1.7 th/mm3 (1.0-4.8); Lymph % (Auto) 20.8 % (9.0-44.0); Mean Corpuscular HGB Conc 34.6 % (32.0-36.0); Mean Corpuscular Hemoglobin 31.1 pg (27.0-34.0); Mean Corpuscular Volume 89.9 fL (80.0-100.0); Mean Platelet Volume 8.3 fL (7.0-11.0); Mono # (Auto) 0.9 th/mm3 (0.0-0.9); Mono % (Auto) 10.6 % (0.0-8.0); Neut # (Auto) 5.3 th/mm3 (1.8-7.7); Neut % (Auto) 64.1 % (16.0-70.0); Platelet Count 369 th/mm3 (150-450); Red Blood Count 3.93 mil/mm3 (4.00-5.30); Red Cell Distribution Width 13.8 % (11.6-17.2); White Blood Count 8.2 th/mm3 (4.0-11.0)
[2018-03-07 06:48] LABS: Calcium 9.1 mg/dL (8.5-10.1); Carbon Dioxide 28.3 meq/L (21.0-32.0); Potassium 3.8 meq/L (3.5-5.1)
[2018-03-07] MEDS: levETIRAcetam 500 MG Tablet PO SCH ×2 (08:04→21:04)
[2018-03-07] MEDS: Pregabalin 25 MG Capsule PO SCH ×3 (08:04→17:52)
[2018-03-07] MEDS: Insulin NovoLIN Regular Correctional Sugar Inj SQ SCH ×4 (08:09→21:05)
[2018-03-07] MEDS: Acyclovir Inj 700 MG in Sodium Chlor 0.9% Inj 100 ML IV.SIG SCH ×2 (09:00→21:03)
--- NOTE | 2018-03-07 10:05 | P.PN ---
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 Patient is seen and examined sitting up in chair with daughter at bedside, plans to take a shower today. Patient continues to report on and off diaphoresis especially at night. Denies any fevers, nausea, vomiting , diarrhea, cough, shortness of breath or chest pain. Some ongoing sternal tenderness especially during deep breathing. Patient denies any dysuria, incontinence, or back pain. Physical Exam Vital signs: Vital Signs 03/06/18 12:00 03/06/18 20:00 03/07/18 00:00 Temperature 98.9 F 97.9 F 98 F Pulse Rate 78 77 76 Respiratory Rate 18 16 16 Blood Pressure 153/71 H 123/59 L 121/60 Pulse Oximetry 92 L 94 L 95 03/07/18 01:51 03/07/18 04:00 03/07/18 08:00 Temperature 98 F 98.0 F Pulse Rate 74 80 Respiratory Rate 15 16 17 Blood Pressure 124/57 L 157/71 H Pulse Oximetry 95 94 L Intake & Output 03/06/18 03/07/18 03/07/18 18:59 06:59 18:59 Intake Total 594 / 594 114 / 114 Output Total 1100 / 1100 Balance -506 / -506 114 / 114 Weight 70.8 kg Intake: IV 114 / 114 114 / 114 Zovirax Inj 700 MG In NS Inj 114 / 114 114 / 114 100 ML @ 114 mls/hr IV.SIG Q12HR BEENA Rx#:[id number] Oral 480 / 480 Output: Urine Amount (Catheter) 1100 / 1100 Indwelling Urethral Catheter 1100 / 1100 Other: # Voids 13 Date of Last Bowel Movement 03/06/18 03/06/18 03/07/18 # Bowel Movements 1 1 Narrative: GENERAL: Well-developed thin female resting in bed comfortably. SKIN: Warm and dry. HEAD: Atraumatic. Normocephalic. EYES: Pupils equal and round. No scleral icterus. No injection or drainage. ENT: No nasal bleeding or discharge. Mucous membranes pink and moist. NECK: Trachea midline. CARDIOVASCULAR: Regular rate and rhythm. RESPIRATORY: No accessory muscle use. Clear to auscultation. Breath sounds equal bilaterally. GASTROINTESTINAL: Abdomen soft, non-tender, nondistended. MUSCULOSKELETAL: Extremities without clubbing, cyanosis, or edema. No obvious deformities. NEUROLOGICAL: Awake and alert. Oriented 3, following commands. no obvious cranial nerve deficits. Motor grossly within normal limits. Moving bilateral upper and lower extremities spontaneously, equal strength, no facial droop, normal speech. PSYCHIATRIC: Appropriate mood and affect; insight and judgment normal. - Urinary Catheter Management Indwelling Urethral Catheter Cath placed during this visit: yes, but has since been removed by the nurse Reason for continuing: Decision to DC catheter Insertion date: 03/01/18 Removal date: 03/02/18 Removal time: 19:00 Results - Labs CBC & Chem 7: 03/07/18 04:58 03/07/18 04:58 Laboratory Results - last 24 hr 03/03/18 03/03/18 03/06/18 07:33 07:33 12:08 WBC RBC Hgb Hct MCV MCH MCHC RDW Plt Count MPV Neut % (Auto) Lymph % (Auto) [place] % (Auto) Eos % (Auto) Baso % (Auto) Neut # (Auto) Lymph # (Auto) [place] # (Auto) Eos # (Auto) Baso # (Auto) WBC Differential Differential Comment Protein C Antigen 92 Free Protein S Antigen 92 Sodium Potassium Chloride Carbon Dioxide Anion Gap BUN Creatinine Estimated GFR POC Glucose 137 H Random Glucose Calcium Anti-Cardiolipin IgG Ab <9.4 Anti-Cardiolipin IgM Ab <9.4 Prothrombin [id number] Mut 03/06/18 03/06/18 03/06/18 16:18 17:45 19:30 WBC RBC Hgb Hct MCV MCH MCHC RDW Plt Count MPV Neut % (Auto) Lymph % (Auto) [place] % (Auto) Eos % (Auto) Baso % (Auto) Neut # (Auto) Lymph # (Auto) [place] # (Auto) Eos # (Auto) Baso # (Auto) WBC Differential Differential Comment Protein C Antigen Free Protein S Antigen Sodium Potassium Chloride Carbon Dioxide Anion Gap BUN Creatinine Estimated GFR POC Glucose 144 H 142 H 230 H Random Glucose Calcium Anti-Cardiolipin IgG Ab Anti-Cardiolipin IgM Ab Prothrombin [id number] Mut 03/07/18 03/07/18 03/07/18 04:58 04:58 08:03 WBC 8.2 RBC 3.93 L Hgb 12.2 Hct 35.4 MCV 89.9 MCH 31.1 MCHC 34.6 RDW 13.8 Plt Count 369 D MPV 8.3 Neut % (Auto) 64.1 Lymph % (Auto) 20.8 [place] % (Auto) 10.6 H Eos % (Auto) 3.7 Baso % (Auto) 0.8 Neut # (Auto) 5.3 Lymph # (Auto) 1.7 [place] # (Auto) 0.9 Eos # (Auto) 0.3 Baso # (Auto) 0.1 WBC Differential . Differential Comment Auto diff final Protein C Antigen Free Protein S Antigen Sodium 136 Potassium 3.8 Chloride 99 Carbon Dioxide 28.3 Anion Gap 9 BUN 13 Creatinine 1.25 H Estimated GFR 42 L POC Glucose 135 H Random Glucose 124 H Calcium 9.1 Anti-Cardiolipin IgG Ab Anti-Cardiolipin IgM Ab Prothrombin [id number] Mut Assessment and Plan - Assessment (1) Ureterolithiasis Code(s): N20.1 - Calculus of ureter Status: Acute Plan: Fall at home, possible syncope AMS speech disturbance - concern for CVA vs metabolic encephalopathy. Symptoms onset not known - she was found on the floor at home. Daughter reports of late there has been concern for early dementia. MRI brain reviewed and reveals: 1. No acute abnormality is seen. 2. Scattered areas of demyelination likely from small vessel ischemic change in the right. MRA neck reveals: Mild focal stenosis at the origin of the left internal carotid artery. Echo 03/01/18: The left ventricular systolic function is normal with an estimated ejection fraction in the range of 55-60%. Normal left ventricular size. Wall thickness is normal. No regional wall motion abnormalities are present. Aortic valve sclerosis is present. There is trace tricuspid valve regurgitation. The estimated pulmonary arterial pressure is 26.8 mmHg. continuous telemetry PT/OT/ST Asa 81 mg daily. consult to neurology Dr. Silva who ordered EEG, recommends consider lumbar puncture of patient's temperature elevates again with headache and other symptoms of meningitis Ureterolithiasis Urology consulted, patient seen by Dr. Varela planning possible right ureteral stent placement tomorrow, pending results of her syncope evaluation Patient does not have any pain IV fluids IV cefepime Blood cultures pending repeat CBC and BMP in AM HTN will hold home antihypertensive regiment, patient's BP has been running low asked nursing to take BPs manually Vasotec as needed DM with peripheral neuropathy hold metformin. SSI with accu checks. diabetic diet Cont Lyrica. Patient no longer has FHCP - patient transferred to [facility] service Dr. Noe Ferrer (2) Altered mental status Code(s): R41.82 - Altered mental status, unspecified Status: Acute (3) DAQUAN (acute kidney injury) Code(s): N17.9 - Acute kidney failure, unspecified Status: Acute (4) Fall Code(s): W19.XXXA - Unspecified fall, initial encounter Status: Acute - Plan 72-year-old female who presented to the hospital on 02/28 after daughter found patient down on the ground with confusion at home. AMS - speech disturbance -suspected ischemic stroke. -Head CT completed on 03/01: senescent changes w/o acute intracranial abnormality -Neck MRA completed 03/01: Mild focal stenosis at the origin of the left internal carotid artery. -Head MRI 03/01: No acute abnormality, scattered areas of demyelination vessel ischemic changes in the right. -Carotid ultrasound 03/02: Less than 50% stenosis on left and right internal carotid arteries. -Head CT completed 03/02: Negative, repeat CT on 03/03-negative - Echo with EF 55-60% no wall thickness abnormality, regional wall motion abnormalities. Aortic valve stenosis, trace tricuspid valve regurgitation. - s/p TPa with improvement in speech and mental status - PT/OT/ST -Aspirin Plavix on hold for planned LP, continue statin - Hypercoagulable labs ordered by neurology - Dr. Silva following appreciate assistance -No recent changes in neurological status. Fall at home, possible syncope. No events recorded on telemetry, echo as noted above ? Herpes encephalitis -Discussed with Dr. Silva neurology -Fevers on admission, complaint of headache, and abnormal EEG as well as bizarre behavior suspicious for encephalitis -EEG completed 03/02 showing nonspecific left temporal region changes suspicious for epileptic activity -Patient started on Keppra IV as well as IV acyclovir -Plans for LP on Friday, if CSF negative for HSV can D/C Acyclovir -MRI is essentially unremarkable, MRA with noted moderate arthrosclerotic vascular disease. -Seizure precautions Ureterolithiasis. Fevers Abdomen/pelvic CT completed on 02/28: Obstructive uropathy on the right side due to 6 mm calcified stone in the proximal right ureter Urology following, appreciate assistance. -Renal ultrasound completed 03/03 shows stable mild right hydronephrosis, similar to prior CT, no mass or stone visualized. -Patient voiding with episodes of incontinence, UA rechecked, and negative. Discontinue cefepime, completed 5 day course. -Voiding without any dysuria, no episode of incontinence. DAQUAN, likely secondary to above - s/p IV fluids, recheck BMP in the a.m. Diabetes mellitus with peripheral neuropathy -Continue to hold metformin -Hemoglobin A1c 6.9 -Continue cardiac and diabetic diet - Accu-checks with ISS, blood sugars improved -Continue Lyrica HTN -BP fluctuates however stable for the most part. RLS -Continue Requip Sternal tenderness -Most likely musculoskeletal in nature due to fall as this is reproducible and worse with coughing -Conservative treatment, as needed Tylenol DVT prophylaxis-ambulation/SCD's Discussed Condition With: Discussed with patient, RN, daughter at bedside. Discharge Planning: We will need neurology clearance. Daughter reports that plans would be to discharge to rehab.
[2018-03-08] MEDS: Sod Chloride 0.9% Inj 1,000 ML IV.CONT SCH ×3 (02:27→23:50)
[2018-03-08] MEDS: Acyclovir Inj 700 MG in Sodium Chlor 0.9% Inj 100 ML IV.SIG SCH ×2 (08:39→21:15)
[2018-03-08] MEDS: Pregabalin 25 MG Capsule PO SCH ×3 (08:43→17:08)
[2018-03-08] MEDS: levETIRAcetam 500 MG Tablet PO SCH ×2 (08:43→21:15)
[2018-03-08] MEDS: Insulin NovoLIN Regular Correctional Sugar Inj SQ SCH ×4 (08:44→21:30)
--- NOTE | 2018-03-08 09:10 | P.PN ---
Subjective Interval history: Patient is seen and examined sitting on recliner this morning in no acute distress. She seems more cheery and his speech is more fluent. Patient reports urinary frequency, denies dysuria or hematuria, back or suprapubic pain. Patient reports that at home she takes Myrbetriq, requesting to be placed back on this. Patient is also requesting something prior to lumbar puncture tomorrow to help with anxiety. Physical Exam Vital signs: Vital Signs 03/07/18 11:37 03/07/18 16:00 03/07/18 19:24 Temperature 98.0 F 97.9 F 97.9 F Pulse Rate 78 74 81 Respiratory Rate 18 18 17 Blood Pressure 128/63 143/76 H 128/61 Pulse Oximetry 94 L 96 95 03/07/18 20:00 03/07/18 23:13 03/08/18 00:00 Temperature 97.5 F L Pulse Rate 81 87 80 Respiratory Rate 18 Blood Pressure 129/62 Pulse Oximetry 98 03/08/18 03:30 03/08/18 07:21 03/08/18 08:00 Temperature 97.6 F 98.1 F Pulse Rate 78 84 79 Respiratory Rate 18 18 16 Blood Pressure 125/58 L 149/68 H Pulse Oximetry 97 96 Intake & Output 03/07/18 03/08/18 03/08/18 18:59 06:59 18:59 Intake Total 1214 / 1214 474 / 474 Balance 1214 / 1214 474 / 474 Weight 70.8 kg Intake: IV 114 / 114 114 / 114 Zovirax Inj 700 MG In NS Inj 114 / 114 114 / 114 100 ML @ 114 mls/hr IV.SIG Q12HR BEENA Rx#:[id number] Oral 1100 / 1100 360 / 360 Other: # Voids 5 3 Date of Last Bowel Movement 03/07/18 03/07/18 03/07/18 # Bowel Movements 1 0 Narrative: GENERAL: Well-developed thin female resting in bed comfortably. SKIN: Warm and dry. HEAD: Atraumatic. Normocephalic. EYES: Pupils equal and round. No scleral icterus. No injection or drainage. ENT: No nasal bleeding or discharge. Mucous membranes pink and moist. NECK: Trachea midline. CARDIOVASCULAR: Regular rate and rhythm. RESPIRATORY: No accessory muscle use. Clear to auscultation. Breath sounds equal bilaterally. GASTROINTESTINAL: Abdomen soft, non-tender, nondistended. MUSCULOSKELETAL: Extremities without clubbing, cyanosis, or edema. No obvious deformities. NEUROLOGICAL: Awake and alert. Oriented 3, following commands. no obvious cranial nerve deficits. Motor grossly within normal limits. Moving bilateral upper and lower extremities spontaneously, equal strength, no facial droop, normal speech. PSYCHIATRIC: Appropriate mood and affect; insight and judgment normal. - Urinary Catheter Management Indwelling Urethral Catheter Cath placed during this visit: yes, but has since been removed by the nurse Reason for continuing: Decision to DC catheter Insertion date: 03/01/18 Removal date: 03/02/18 Removal time: 19:00 Results - Labs CBC & Chem 7: 03/07/18 04:58 03/07/18 04:58 Laboratory Results - last 24 hr 03/07/18 03/07/18 03/07/18 11:18 16:53 20:34 POC Glucose 211 H 150 H 167 H 03/08/18 07:47 POC Glucose 177 H Assessment and Plan - Assessment (1) Ureterolithiasis Code(s): N20.1 - Calculus of ureter Status: Acute Plan: Fall at home, possible syncope AMS speech disturbance - concern for CVA vs metabolic encephalopathy. Symptoms onset not known - she was found on the floor at home. Daughter reports of late there has been concern for early dementia. MRI brain reviewed and reveals: 1. No acute abnormality is seen. 2. Scattered areas of demyelination likely from small vessel ischemic change in the right. MRA neck reveals: Mild focal stenosis at the origin of the left internal carotid artery. Echo 03/01/18: The left ventricular systolic function is normal with an estimated ejection fraction in the range of 55-60%. Normal left ventricular size. Wall thickness is normal. No regional wall motion abnormalities are present. Aortic valve sclerosis is present. There is trace tricuspid valve regurgitation. The estimated pulmonary arterial pressure is 26.8 mmHg. continuous telemetry PT/OT/ST Asa 81 mg daily. consult to neurology Dr. Silva who ordered EEG, recommends consider lumbar puncture of patient's temperature elevates again with headache and other symptoms of meningitis Ureterolithiasis Urology consulted, patient seen by Dr. Varela planning possible right ureteral stent placement tomorrow, pending results of her syncope evaluation Patient does not have any pain IV fluids IV cefepime Blood cultures pending repeat CBC and BMP in AM HTN will hold home antihypertensive regiment, patient's BP has been running low asked nursing to take BPs manually Vasotec as needed DM with peripheral neuropathy hold metformin. SSI with accu checks. diabetic diet Cont Lyrica. Patient no longer has FHCP - patient transferred to [facility] service Dr. Noe Ferrer (2) Altered mental status Code(s): R41.82 - Altered mental status, unspecified Status: Acute (3) DAQUAN (acute kidney injury) Code(s): N17.9 - Acute kidney failure, unspecified Status: Acute (4) Fall Code(s): W19.XXXA - Unspecified fall, initial encounter Status: Acute - Plan 72-year-old female who presented to the hospital on 02/28 after daughter found patient down on the ground with confusion at home. AMS - speech disturbance -suspected ischemic stroke. -Head CT completed on 03/01: senescent changes w/o acute intracranial abnormality -Neck MRA completed 03/01: Mild focal stenosis at the origin of the left internal carotid artery. -Head MRI 03/01: No acute abnormality, scattered areas of demyelination vessel ischemic changes in the right. -Carotid ultrasound 03/02: Less than 50% stenosis on left and right internal carotid arteries. -Head CT completed 03/02: Negative, repeat CT on 03/03-negative - Echo with EF 55-60% no wall thickness abnormality, regional wall motion abnormalities. Aortic valve stenosis, trace tricuspid valve regurgitation. - s/p TPa with improvement in speech and mental status - PT/OT/ST -Aspirin Plavix on hold for planned LP, continue statin - Hypercoagulable labs ordered by neurology - Dr. Silva following appreciate assistance -No recent changes in neurological status, speech is improved and more fluent. Fall at home, possible syncope. No events recorded on telemetry, echo as noted above ? Herpes encephalitis -Discussed with Dr. Silva neurology -Fevers on admission, complaint of headache, and abnormal EEG as well as bizarre behavior suspicious for encephalitis -EEG completed 03/02 showing nonspecific left temporal region changes suspicious for epileptic activity -Patient started on Keppra IV as well as IV acyclovir -Plans for LP on Friday, if CSF negative for HSV can D/C Acyclovir -MRI is essentially unremarkable, MRA with noted moderate arthrosclerotic vascular disease. -Seizure precautions Ureterolithiasis. Fevers, resolved Abdomen/pelvic CT completed on 02/28: Obstructive uropathy on the right side due to 6 mm calcified stone in the proximal right ureter Urology following, appreciate assistance. -Renal ultrasound completed 03/03 shows stable mild right hydronephrosis, similar to prior CT, no mass or stone visualized. -Patient voiding with episodes of incontinence, UA rechecked, and negative. Discontinue cefepime, completed 5 day course. -Voiding without any dysuria, no episode of incontinence. Overactive bladder, chronic -Patient reports taking Myrbetriq at home. Will check renal ultrasound to reassess right-sided mild hydronephrosis prior to starting Myrbetriq. DAQUAN, likely secondary to above -Continue to encourage oral hydration. Diabetes mellitus with peripheral neuropathy -Continue to hold metformin -Hemoglobin A1c 6.9 -Continue cardiac and diabetic diet - Accu-checks with ISS -Continue Lyrica HTN -BP fluctuates however stable for the most part. 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 Daughter reports that plans would be to discharge to rehab.
--- NOTE | 2018-03-08 10:49 | US ---
EXAM DATE: 03/08/2018 10:33 AM EDT AGE/SEX: 72 years / Female INDICATIONS: Hydronephrosis. CLINICAL DATA: This is the patient's subsequent encounter. Patient reports that signs and symptoms h ave been present for 4 - 6 days and indicates a pain score of 0/10. MEDICAL/SURGICAL HISTORY: Deep venous thrombosis. Hypertension. Urinary tract infection. None . COMPARISON: [facility] [place], [place] KIDNEY/RENAL/BLADDER, 03/03/2018. . MEASUREMENTS: Right Kidney:__12.7 x 5.9 x 6.4 cm Left Kidney:__11.1 x 5.2 x 4.8 cm FINDINGS: Right Kidney: Stable mild right-sided hydronephrosis. Normal echotexture without cortical thinning. Left Kidney: Redemonstration of hypoechoic lesion in the superior pole the left kidney measuring 2.6 x 2.7 x 2.3 cm. No significant hydronephrosis, renal calculi or cortical thinning. Bladder: Limited visualization due to bowel gas. Other: None. CONCLUSION: 1. Stable mild right-sided hydronephrosis. This is presumably residual hydronephrosis from patient's previously diagnosed proximal right ureteral calculus. 2. Stable 2.7 cm cystic lesion in the inferior pole of the left kidney. Again, this is somewhat comp lalita. MRI examination with renal protocol may be performed on an outpatient basis for better character ization. Electronically signed by: Edilberto Martin MD 03/08/2018 10:47 AM EDT
[2018-03-09] MEDS: Sod Chloride 0.9% Inj 1,000 ML IV.CONT SCH ×2 (07:09→18:18)
--- NOTE | 2018-03-09 09:19 | P.PN ---
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 Patient is seen and examined resting in bed comfortably , appears to be in no acute distress. She denies any nausea, vomiting, diarrhea , cough, shortness of breath or chest pain. Patient will have lumbar puncture done today. No reports of neurological changes per nursing staff. Physical Exam Vital signs: Vital Signs 03/08/18 11:27 03/08/18 15:23 03/08/18 17:41 Temperature 98 F 98.1 F Pulse Rate 73 73 Respiratory Rate 18 18 18 Blood Pressure 124/77 127/76 Pulse Oximetry 97 94 L 03/08/18 20:00 03/08/18 20:06 03/08/18 23:28 Temperature 97.7 F 98.0 F Pulse Rate 95 H 79 80 Respiratory Rate 18 18 Blood Pressure 117/54 L 115/58 L Pulse Oximetry 96 97 03/08/18 23:57 03/08/18 23:58 03/09/18 01:21 Temperature Pulse Rate 76 Respiratory Rate 17 17 Blood Pressure Pulse Oximetry 03/09/18 03:25 03/09/18 06:03 03/09/18 08:00 Temperature 97.5 F L 97.6 F Pulse Rate 87 74 Respiratory Rate 18 17 17 Blood Pressure 157/70 H 128/82 Pulse Oximetry 93 L 96 Intake & Output 03/08/18 03/09/18 03/09/18 18:59 06:59 18:59 Intake Total 1214 / 1214 114 / 114 Balance 1214 / 1214 114 / 114 Weight 70.8 kg Intake: IV 114 / 114 114 / 114 Zovirax Inj 700 MG In NS Inj 114 / 114 114 / 114 100 ML @ 114 mls/hr IV.SIG Q12HR BEENA Rx#:[id number] Oral 1100 / 1100 0 / 0 Other: # Voids 5 3 Date of Last Bowel Movement 03/07/18 03/06/18 # Bowel Movements 0 Narrative: GENERAL: Well-developed thin female resting in bed comfortably. SKIN: Warm and dry. HEAD: Atraumatic. EYES: Pupils equal and round. No scleral icterus. No injection or drainage. ENT: No nasal bleeding or discharge. Mucous membranes pink and moist. NECK: Trachea midline. CARDIOVASCULAR: Regular rate and rhythm. RESPIRATORY: No accessory muscle use. Clear to auscultation. Breath sounds equal bilaterally. GASTROINTESTINAL: Abdomen soft, non-tender, nondistended. MUSCULOSKELETAL: Extremities without clubbing, cyanosis, or edema. No obvious deformities. NEUROLOGICAL: Awake and alert. Oriented 3, following commands. no obvious cranial nerve deficits. Motor grossly within normal limits. Moving bilateral upper and lower extremities spontaneously, equal strength, no facial droop, normal speech. PSYCHIATRIC: Appropriate mood and affect; insight and judgment normal. - Urinary Catheter Management Indwelling Urethral Catheter Cath placed during this visit: yes, but has since been removed by the nurse Reason for continuing: Decision to DC catheter Insertion date: 03/01/18 Removal date: 03/02/18 Removal time: 19:00 Results - Labs CBC & Chem 7: 03/07/18 04:58 03/07/18 04:58 Laboratory Results - last 24 hr 03/08/18 03/08/18 03/08/18 11:28 16:15 21:18 POC Glucose 174 H 165 H 225 H 03/09/18 05:32 POC Glucose 131 H - Imaging Impressions Abdomen/Bladder Ultrasound 03/08/18 00:00 CONCLUSION: 1. Stable mild right-sided hydronephrosis. This is presumably residual hydronephrosis from patient's previously diagnosed proximal right ureteral calculus. 2. Stable 2.7 cm cystic lesion in the inferior pole of the left kidney. Again, this is somewhat complex. MRI examination with renal protocol may be performed on an outpatient basis for better characterization. Assessment and Plan - Assessment (1) Ureterolithiasis Code(s): N20.1 - Calculus of ureter Status: Acute Plan: Fall at home, possible syncope AMS speech disturbance - concern for CVA vs metabolic encephalopathy. Symptoms onset not known - she was found on the floor at home. Daughter reports of late there has been concern for early dementia. MRI brain reviewed and reveals: 1. No acute abnormality is seen. 2. Scattered areas of demyelination likely from small vessel ischemic change in the right. MRA neck reveals: Mild focal stenosis at the origin of the left internal carotid artery. Echo 03/01/18: The left ventricular systolic function is normal with an estimated ejection fraction in the range of 55-60%. Normal left ventricular size. Wall thickness is normal. No regional wall motion abnormalities are present. Aortic valve sclerosis is present. There is trace tricuspid valve regurgitation. The estimated pulmonary arterial pressure is 26.8 mmHg. continuous telemetry PT/OT/ST Asa 81 mg daily. consult to neurology Dr. Silva who ordered EEG, recommends consider lumbar puncture of patient's temperature elevates again with headache and other symptoms of meningitis Ureterolithiasis Urology consulted, patient seen by Dr. Varela planning possible right ureteral stent placement tomorrow, pending results of her syncope evaluation Patient does not have any pain IV fluids IV cefepime Blood cultures pending repeat CBC and BMP in AM HTN will hold home antihypertensive regiment, patient's BP has been running low asked nursing to take BPs manually Vasotec as needed DM with peripheral neuropathy hold metformin. SSI with accu checks. diabetic diet Cont Lyrica. Patient no longer has FHCP - patient transferred to [facility] service Dr. Noe Ferrer (2) Altered mental status Code(s): R41.82 - Altered mental status, unspecified Status: Acute (3) DAQUAN (acute kidney injury) Code(s): N17.9 - Acute kidney failure, unspecified Status: Acute (4) Fall Code(s): W19.XXXA - Unspecified fall, initial encounter Status: Acute - Plan 72-year-old female who presented to the hospital on 02/28 after daughter found patient down on the ground with confusion at home. AMS - speech disturbance -suspected ischemic stroke. -Head CT completed on 03/01: senescent changes w/o acute intracranial abnormality -Neck MRA completed 03/01: Mild focal stenosis at the origin of the left internal carotid artery. -Head MRI 03/01: No acute abnormality, scattered areas of demyelination vessel ischemic changes in the right. -Carotid ultrasound 03/02: Less than 50% stenosis on left and right internal carotid arteries. -Head CT completed 03/02: Negative, repeat CT on 03/03-negative - Echo with EF 55-60% no wall thickness abnormality, regional wall motion abnormalities. Aortic valve stenosis, trace tricuspid valve regurgitation. - s/p TPa with improvement in speech and mental status - PT/OT/ST -Aspirin Plavix on hold for planned LP 03/09, continue statin - Hypercoagulable labs ordered by neurology - Dr. Silva following appreciate assistance -No recent changes in neurological status, speech is improved and more fluent. Fall at home, possible syncope. No events recorded on telemetry, echo as noted above ? Herpes encephalitis -Discussed with Dr. Silva neurology -Fevers on admission, complaint of headache, and abnormal EEG as well as bizarre behavior suspicious for encephalitis -EEG completed 03/02 showing nonspecific left temporal region changes suspicious for epileptic activity -Patient started on Keppra IV as well as IV acyclovir -Plans for LP on Friday, if CSF negative for HSV can D/C Acyclovir -MRI is essentially unremarkable, MRA with noted moderate arthrosclerotic vascular disease. -Seizure precautions Ureterolithiasis. Fevers, resolved Abdomen/pelvic CT completed on 02/28: Obstructive uropathy on the right side due to 6 mm calcified stone in the proximal right ureter Urology following, appreciate assistance. -Renal ultrasound completed 03/03 shows stable mild right hydronephrosis, similar to prior CT, no mass or stone visualized. -s/p cefepime, completed 5 day course. -Voiding without any dysuria, no episode of incontinence. -Repeat renal ultrasound/ with stable mild right-sided hydronephrosis. 2.7cm cystic lesion on inferior pole of left kidney, recommend MRI with renal protocol as outpatient. Overactive bladder, chronic -Patient reports taking Myrbetriq at home. -Hold off on Myrbetriq secondary to mild right-sided hydronephrosis. Patient advised to follow-up with urology as outpatient. DAQUAN, likely secondary to above -Continue to encourage oral hydration. Diabetes mellitus with peripheral neuropathy -Continue to hold metformin -Hemoglobin A1c 6.9 -Continue cardiac and diabetic diet - Accu-checks with ISS -Continue Lyrica HTN -BP fluctuates however stable for the most part. RLS -Continue Requip Sternal tenderness -Most likely musculoskeletal in nature due to fall as this is reproducible and worse with coughing -Conservative treatment, as needed Tylenol DVT prophylaxis-ambulation/SCD's Discussed Condition With: Discussed with patient and RN. Discharge Planning: Discharge to [place] versus [facility] pending LP and neuro clearance. Possibly D/ C tomorrow.
[2018-03-09] MEDS: levETIRAcetam 500 MG Tablet PO SCH ×2 (09:45→21:35)
[2018-03-09] MEDS: Pregabalin 25 MG Capsule PO SCH ×3 (09:46→18:18)
[2018-03-09] MEDS: Insulin NovoLIN Regular Correctional Sugar Inj SQ SCH ×4 (09:46→21:44)
[2018-03-09] MEDS: Acyclovir Inj 700 MG in Sodium Chlor 0.9% Inj 100 ML IV.SIG SCH ×2 (09:52→21:37)
[2018-03-09] MEDS ORDERED: LORazepam 0.5 MG Tablet PO ONE (11:00)
--- NOTE | 2018-03-09 11:01 | P.RAD ---
Post Procedure Progress Note - Pre Procedure Diagnosis (1) Altered mental status - Post Procedure Diagnosis (1) Altered mental status - Procedure Information Procedure Date: 03/09/18 Supervising Radiologist: Rico Salazar MD Estimated blood loss (mL): 0 Anesthesia: Local - Plan of Activity Patient to Unit: Nursing Unit Patient Condition: Good Additional Comments: LP completed without difficulty. 19cc of clear csf removed. See PACS Report for procedural detail/treatment.
[2018-03-09 11:53] LABS: Total Protein,CSF 46.9 mg/dL (15.0-45.0)
[2018-03-09 12:40] LABS: Lymphocytes, CSF 53 %; Monocytes,CSF 40 %; Neutrophils,CSF 7 %
--- NOTE | 2018-03-09 15:01 | P.DCO ---
- Physical Therapy Order: Evaluate and treat, Improve ambulation - Occupational Therapy Order: Improve ADL, Fine motor coordination - Home Health Nursing Order: Medical education, Signs/symptoms of disease process - Certification I have seen patient Rudolph Ferrer on 03/09/18. My clinical findings support the need for the requested home health care services because: Deconditioned with increased weakness, High risk of falls I certify that my clinical findings support that this patient is homebound because: Impaired cognitive ability/safety, Unsteady gait/balance
--- NOTE | 2018-03-09 18:48 | P.PNNEU ---
Subjective Subjective Comments: no new c/o.. S/p LP and tolerated it well Has not had any more episodes of confusion on keppra Active Medications: Active Medications Acetaminophen (Tylenol) 650 mg PO Q4H PRN PRN Reason: Temp > 100.4 Last Admin: 03/03/18 12:14 Dose: 650 mg Hydrocodone Bitart/Acetaminophen (Haughton 5/325) 1 tab PO Q6H PRN PRN Reason: Pain 5-10 Last Admin: 03/09/18 05:33 Dose: 1 tab Al Hydroxide/Mg Hydroxide (Milk Of Magnesia Liq) 30 ml PO Q12H PRN PRN Reason: Mild Constipation Bisacodyl (Dulcolax Supp) 10 mg RECTAL DAILY PRN PRN Reason: SEVERE CONSITIPATION Dextrose (D50w Vial) 50 ml IV.PUSH UNSCH PRN PRN Reason: PER HYPOGLYCEMIA PROTOCOL Enalaprilat (Vasotec Inj) 1.25 mg IV.PUSH Q4H PRN PRN Reason: For SBP > 220 or DBP > 120 Escitalopram Oxalate (Lexapro) 20 mg PO DAILY [facility] Last Admin: 03/09/18 09:46 Dose: 20 mg Glucagon (Glucagon Inj) 1 mg OTHER PRN PRN PRN Reason: for Hypoglycemia Protocol Sodium Chloride (Ns Inj) 1,000 mls @ 100 mls/hr IV.CONT .Q10H [facility] Last Admin: 03/09/18 18:18 Dose: Not Given Acetaminophen (Ofirmev Inj) 1,000 mg in 100 mls @ 400 mls/hr IV.SIG Q6H PRN PRN Reason: TEMPERATURE > 101 F /PAIN 1-10 Last Infusion: 03/01/18 21:13 Dose: Infused Acyclovir Sodium 700 mg/ (Sodium Chloride) 114 mls @ 114 mls/hr IV.SIG Q12HR [facility] Last Infusion: 03/09/18 18:19 Dose: Infused Insulin Human Regular (Novolin R Correctional Sugar Inj) 0 units SQ ACHS [facility]; Protocol Last Admin: 03/09/18 17:37 Dose: 1 units Lactulose (Lactulose Liq) 30 ml PO DAILY PRN PRN Reason: SEVERE CONSITIPATION Levetiracetam (Keppra) 1,000 mg PO BID [facility] Last Admin: 03/09/18 09:45 Dose: 1,000 mg Ondansetron HCl (Zofran Inj) 4 mg IV.PUSH Q6H PRN PRN Reason: NAUSEA OR VOMITING Pantoprazole Sodium (Protonix) 40 mg PO DAILY [facility] Last Admin: 03/09/18 09:49 Dose: Not Given Pravastatin Sodium (Pravachol) 40 mg PO DAILY [facility] Last Admin: 03/09/18 09:49 Dose: Not Given Pregabalin (Lyrica) 25 mg PO TID [facility] Last Admin: 03/09/18 18:18 Dose: 25 mg Ropinirole HCl (Requip) 0.5 mg PO HS [facility] Last Admin: 03/08/18 21:21 Dose: 0.5 mg Ropinirole HCl (Requip) 0.25 mg PO TIDAC [facility] Last Admin: 03/09/18 18:18 Dose: 0.25 mg Sennosides (Senokot) 17.2 mg PO Q12H PRN PRN Reason: Moderate Constipation Last Admin: 03/05/18 09:32 Dose: 17.2 mg Sodium Chloride (Ns Flush) 2 ml IV.FLUSH BID [facility] Last Admin: 03/09/18 09:48 Dose: 2 ml Sodium Chloride (Ns Flush) 2 ml IV.FLUSH PRN PRN PRN Reason: FLUSH AFTER USING IV ACCESS Allergies/Adverse Reactions: Allergies Allergy/AdvReac Type Severity Reaction Status Date / Time latex Allergy Severe Rash Verified 02/28/18 19:51 phenobarbital Allergy Severe Dizziness Verified 02/28/18 19:51 Physical Exam Vital signs: Vital Signs 03/08/18 20:00 03/08/18 20:06 03/08/18 23:28 Temperature 97.7 F 98.0 F Pulse Rate 95 H 79 80 Respiratory Rate 18 18 Blood Pressure 117/54 L 115/58 L Pulse Oximetry 96 97 03/08/18 23:57 03/08/18 23:58 03/09/18 01:21 Temperature Pulse Rate 76 Respiratory Rate 17 17 Blood Pressure Pulse Oximetry 03/09/18 03:25 03/09/18 06:03 03/09/18 08:00 Temperature 97.5 F L 97.6 F Pulse Rate 87 92 H Respiratory Rate 18 17 17 Blood Pressure 157/70 H 128/82 Pulse Oximetry 93 L 96 03/09/18 12:01 03/09/18 16:00 Temperature 98.3 F 98.9 F Pulse Rate 64 75 Respiratory Rate 18 18 Blood Pressure 126/57 L 130/66 Pulse Oximetry 96 96 Intake & Output 03/08/18 03/09/18 03/09/18 18:59 06:59 18:59 Intake Total 1214 / 1214 114 / 114 114 / 114 Balance 1214 / 1214 114 / 114 114 / 114 Weight 70.8 kg Intake: IV 114 / 114 114 / 114 114 / 114 Zovirax Inj 700 MG In NS Inj 114 / 114 114 / 114 114 / 114 100 ML @ 114 mls/hr IV.SIG Q12HR [facility] Rx#:[id number] Oral 1100 / 1100 0 / 0 Other: # Voids 5 3 Date of Last Bowel Movement 03/07/18 03/06/18 03/07/18 # Bowel Movements 0 - Routine Neurological Exam alert, oriented times three Speech fluent , follow commands CN intact MOTOR 5/5 BUE - Urinary Catheter Management Indwelling Urethral Catheter Cath placed during this visit: yes, but has since been removed by the nurse Reason for continuing: Decision to DC catheter Insertion date: 03/01/18 Removal date: 03/02/18 Removal time: 19:00 Objective Laboratory Results - last 24 hr 03/08/18 03/09/18 03/09/18 21:18 05:32 10:48 POC Glucose 225 H 131 H CSF Volume (1) 4.2 CSF Supernat Color (1) Clear CSF Gross Blood (1) 0 CSF Volume (2) 3.8 CSF Supernat Color (2) Clear CSF Gross Blood (2) 0 CSF Volume (3) 4.2 CSF Supernat Color (3) Clear CSF Gross Blood (3) 0 CSF Volume (4) 6.7 CSF Supernat Color (4) Clear CSF Gross Blood (4) 0 CSF Neutrophils % 7 CSF Lymphocytes % 53 CSF Monocytes % 40 CSF Glucose CSF Total Protein 03/09/18 03/09/18 03/09/18 10:48 11:23 17:31 POC Glucose 136 H 192 H CSF Volume (1) CSF Supernat Color (1) CSF Gross Blood (1) CSF Volume (2) CSF Supernat Color (2) CSF Gross Blood (2) CSF Volume (3) CSF Supernat Color (3) CSF Gross Blood (3) CSF Volume (4) CSF Supernat Color (4) CSF Gross Blood (4) CSF Neutrophils % CSF Lymphocytes % CSF Monocytes % CSF Glucose 74 CSF Total Protein 46.9 H Microbiology 03/09/18 10:48 Gram Stain - Final Lumbar Puncture Review/Management - Diagnosis (1) Stroke Code(s): I63.9 - Cerebral infarction, unspecified Status: Acute Current Visit: Yes (2) Seizure Code(s): R56.9 - Unspecified convulsions Status: Acute Current Visit: Yes - Review/Management Plan: temporal lobe seizure. continue keppra. , continue acyclovir until csf hsv negative. recommend in patient rehab after discharge.
[2018-03-09 18:57] LABS: RBC on Tube 4 2 /mm3
[2018-03-10] MEDS: Sod Chloride 0.9% Inj 1,000 ML IV.CONT SCH ×3 (02:21→23:34)
[2018-03-10] MEDS: Acyclovir Inj 700 MG in Sodium Chlor 0.9% Inj 100 ML IV.SIG SCH ×2 (09:20→21:23)
[2018-03-10] MEDS: Pregabalin 25 MG Capsule PO SCH ×3 (09:21→17:35)
[2018-03-10] MEDS: levETIRAcetam 500 MG Tablet PO SCH ×2 (09:21→21:22)
[2018-03-10] MEDS: Insulin NovoLIN Regular Correctional Sugar Inj SQ SCH ×4 (11:12→21:23)
--- NOTE | 2018-03-10 15:07 | P.PN ---
Subjective Interval history: Patient is seen lying in bed watching TV. She tells me that she is feeling better today. No dizziness or syncope. No headache. No nausea vomiting or diarrhea. No shortness of breath or chest pain. Her left wrist is somewhat painful and swollen where she had a previous IV. Physical Exam Vital signs: Vital Signs 03/09/18 16:00 03/09/18 20:00 03/10/18 00:00 Temperature 98.9 F 98.6 F 97.7 F Pulse Rate 75 87 75 Respiratory Rate 18 18 16 Blood Pressure 130/66 154/72 H 126/69 Pulse Oximetry 96 95 92 L 03/10/18 04:00 03/10/18 08:00 03/10/18 12:00 Temperature 97.8 F 97.3 F L 98.7 F Pulse Rate 88 74 80 Respiratory Rate 17 17 19 Blood Pressure 161/72 H 158/71 H 142/65 H Pulse Oximetry 95 95 96 Intake & Output 03/09/18 03/10/18 03/10/18 18:59 06:59 18:59 Intake Total 484 / 484 339 / 339 114 / 114 Balance 484 / 484 339 / 339 114 / 114 Weight 73.4 kg Intake: IV 114 / 114 114 / 114 114 / 114 Zovirax Inj 700 MG In NS Inj 114 / 114 114 / 114 114 / 114 100 ML @ 114 mls/hr IV.SIG Q12HR [facility] Rx#:[id number] Oral 370 / 370 225 / 225 Other: # Voids 2 Date of Last Bowel Movement 03/07/18 03/07/18 Narrative: GENERAL: Well-nourished, well-developed adult female in no obvious distress. SKIN: Warm and dry. HEAD: Atraumatic. Normocephalic. CARDIOVASCULAR: Regular rate and rhythm. RESPIRATORY: No accessory muscle use. Clear to auscultation. Breath sounds equal bilaterally. GASTROINTESTINAL: Abdomen soft, non-tender, non-distended. Positive bowel sounds. MUSCULOSKELETAL: Extremities without clubbing, cyanosis, or edema. No obvious deformities. Left wrist and forearm mildly swollen and erythemic proximal to IV insertion site. Hardened area palpable distal to insertion site. Fingers well-perfused with normal strength and motion. NEUROLOGICAL: Awake and alert. No obvious cranial nerve deficits. Motor grossly within normal limits. Normal speech. PSYCHIATRIC: Appropriate mood and affect; insight and judgment good. - Urinary Catheter Management Indwelling Urethral Catheter Cath placed during this visit: yes, but has since been removed by the nurse Reason for continuing: Decision to DC catheter Insertion date: 03/01/18 Removal date: 03/02/18 Removal time: 19:00 Results - Labs CBC & Chem 7: 03/07/18 04:58 03/07/18 04:58 Laboratory Results - last 24 hr 03/09/18 03/09/18 03/09/18 10:48 17:31 21:41 POC Glucose 192 H 178 H CSF WBC (4) 2 CSF RBC (4) 2 H 03/10/18 03/10/18 09:03 11:58 POC Glucose 280 H 211 H CSF WBC (4) CSF RBC (4) Microbiology 03/09/18 10:48 Lumbar Puncture Gram Stain - Final 03/09/18 10:48 Lumbar Puncture CSF Culture - Preliminary No growth in 24 hours Assessment and Plan - Assessment (1) Stroke Code(s): I63.9 - Cerebral infarction, unspecified Status: Acute (2) Altered mental status Code(s): R41.82 - Altered mental status, unspecified Status: Acute (3) Ureterolithiasis Code(s): N20.1 - Calculus of ureter Status: Resolved (4) DAQUAN (acute kidney injury) Code(s): N17.9 - Acute kidney failure, unspecified Status: Acute (5) Fall Code(s): W19.XXXA - Unspecified fall, initial encounter Status: Acute - Plan 72-year-old female who presented to the hospital on 02/28 after daughter found patient down on the ground with confusion at home. AMS - speech disturbance -suspected ischemic stroke. -Head CT completed on 03/01: senescent changes w/o acute intracranial abnormality -Neck MRA completed 03/01: Mild focal stenosis at the origin of the left internal carotid artery. -Head MRI 03/01: No acute abnormality, scattered areas of demyelination vessel ischemic changes in the right. -Carotid ultrasound 03/02: Less than 50% stenosis on left and right internal carotid arteries. -Head CT completed 03/02: Negative, repeat CT on 03/03-negative - Echo with EF 55-60% no wall thickness abnormality, regional wall motion abnormalities. Aortic valve stenosis, trace tricuspid valve regurgitation. - s/p TPa with improvement in speech and mental status - PT/OT/ST -Aspirin Plavix on hold for planned LP 03/09, continue statin - Hypercoagulable labs ordered by neurology - Dr. Silva following appreciate assistance -No recent changes in neurological status, speech is improved and more fluent. ? Herpes encephalitis -Discussed with Dr. Silva neurology -Fevers on admission, complaint of headache, and abnormal EEG as well as bizarre behavior suspicious for encephalitis -EEG completed 03/02 showing nonspecific left temporal region changes suspicious for epileptic activity -Patient started on Keppra IV as well as IV acyclovir -Plans for LP on Friday, if CSF negative for HSV can D/C Acyclovir; no growth in 24 hours -MRI is essentially unremarkable, MRA with noted moderate arthrosclerotic vascular disease. -Seizure precautions Ureterolithiasis. Fevers, resolved Abdomen/pelvic CT completed on 02/28: Obstructive uropathy on the right side due to 6 mm calcified stone in the proximal right ureter Urology following, appreciate assistance. -Renal ultrasound completed 03/03 shows stable mild right hydronephrosis, similar to prior CT, no mass or stone visualized. -s/p cefepime, completed 5 day course. -Voiding without any dysuria, no episode of incontinence. -Repeat renal ultrasound/ with stable mild right-sided hydronephrosis. 2.7cm cystic lesion on inferior pole of left kidney, recommend MRI with renal protocol as outpatient. Overactive bladder, chronic -Patient reports taking Myrbetriq at home. -Hold off on Myrbetriq secondary to mild right-sided hydronephrosis. Patient advised to follow-up with urology as outpatient. DAQUAN, likely secondary to above -Continue to encourage oral hydration. Diabetes mellitus with peripheral neuropathy -Continue to hold metformin -Hemoglobin A1c 6.9 -Continue cardiac and diabetic diet - Accu-checks with ISS -Continue Lyrica HTN -BP fluctuates however stable for the most part. RLS -Continue Requip Sternal tenderness -Most likely musculoskeletal in nature due to fall as this is reproducible and worse with coughing -Conservative treatment, as needed Tylenol DVT prophylaxis-ambulation/SCD's Discussed Condition With: Discussed with patient and RN. Discharge Planning: Discharge to [facility] pending LP and neuro clearance. Possibly D/C 03/11. [id number] signed.
--- NOTE | 2018-03-10 19:31 | US ---
EXAM DATE: 03/10/2018 7:27 PM EDT AGE/SEX: 72 years / Female INDICATIONS: Left arm swelling and pain. CLINICAL DATA: This is the patient's initial encounter. Patient reports that signs and symptoms have been present for 1 day and indicates a pain score of 6/10. MEDICAL/SURGICAL HISTORY: Deep venous thrombosis. Hypertension. Diabetes. Nephrolithiasis. . Unknown surgical history. COMPARISON: . FINDINGS: Occlusive thrombus is noted throughout the left cephalic vein in the region of the forearm . There is normal color flow within the left internal jugular, subclavian, axillary, brachial, and ba silic veins. Normal color flow is also noted within the radial and ulnar veins. Other: None. CONCLUSION: 1. Occlusive thrombus within left cephalic vein in the region of the forearm. Electronically signed by: Torres Redding MD 03/10/2018 7:29 PM EDT
[2018-03-11] MEDS: Insulin NovoLIN Regular Correctional Sugar Inj SQ SCH ×4 (08:10→20:47)
[2018-03-11] MEDS: levETIRAcetam 500 MG Tablet PO SCH ×2 (08:16→20:38)
[2018-03-11] MEDS: Pregabalin 25 MG Capsule PO SCH ×3 (08:16→18:26)
[2018-03-11] MEDS: Acyclovir Inj 700 MG in Sodium Chlor 0.9% Inj 100 ML IV.SIG SCH ×2 (08:17→20:47)
[2018-03-11] MEDS: Sod Chloride 0.9% Inj 1,000 ML IV.CONT SCH ×2 (08:24→19:01)
--- NOTE | 2018-03-11 08:25 | P.PN ---
Subjective Interval history: Patient is seen sitting up in bed. No new swelling or pain in her left wrist or arm. No chest pain or shortness of breath. No dizziness or syncope. No nausea vomiting or diarrhea. She is looking forward to transferring to an SNF as soon as possible. Physical Exam Vital signs: Vital Signs 03/10/18 12:00 03/10/18 16:00 03/10/18 19:00 Temperature 98.7 F 98.4 F Pulse Rate 80 85 Respiratory Rate 19 17 18 Blood Pressure 142/65 H 134/71 Pulse Oximetry 96 97 03/10/18 20:00 03/11/18 00:00 03/11/18 00:05 Temperature 97.6 F 97.7 F Pulse Rate 72 82 79 Respiratory Rate 18 18 Blood Pressure 116/63 149/70 H Pulse Oximetry 93 L 95 03/11/18 00:47 03/11/18 04:00 03/11/18 07:34 Temperature 97.5 F L Pulse Rate 81 74 Respiratory Rate 16 18 Blood Pressure 117/63 Pulse Oximetry 95 03/11/18 08:04 Temperature Pulse Rate Respiratory Rate 17 Blood Pressure Pulse Oximetry Intake & Output 03/10/18 03/11/18 03/11/18 18:59 06:59 18:59 Intake Total 574 / 574 564 / 564 Balance 574 / 574 564 / 564 Weight 73.4 kg Intake: IV 114 / 114 114 / 114 Zovirax Inj 700 MG In NS Inj 114 / 114 114 / 114 100 ML @ 114 mls/hr IV.SIG Q12HR [facility] Rx#:[id number] Oral 460 / 460 450 / 450 Other: # Voids 9 2 Date of Last Bowel Movement 03/07/18 # Bowel Movements 0 Narrative: GENERAL: Well-nourished, well-developed adult female in no obvious distress. SKIN: Warm and dry. HEAD: Atraumatic. Normocephalic. CARDIOVASCULAR: Regular rate and rhythm. RESPIRATORY: No accessory muscle use. Clear to auscultation. Breath sounds equal bilaterally. GASTROINTESTINAL: Abdomen soft, non-tender, non-distended. Positive bowel sounds. MUSCULOSKELETAL: Extremities without clubbing, cyanosis, or edema. No obvious deformities. Left wrist and forearm mildly swollen and erythemic proximal to IV insertion site -improved from prior day. Hardened area palpable distal to insertion site. Fingers well-perfused with normal strength and motion. NEUROLOGICAL: Awake and alert. No obvious cranial nerve deficits. Motor grossly within normal limits. Normal speech. PSYCHIATRIC: Appropriate mood and affect; insight and judgment good. - Urinary Catheter Management Indwelling Urethral Catheter Cath placed during this visit: yes, but has since been removed by the nurse Reason for continuing: Decision to DC catheter Insertion date: 03/01/18 Removal date: 03/02/18 Removal time: 19:00 Results - Labs CBC & Chem 7: 03/07/18 04:58 03/07/18 04:58 Laboratory Results - last 24 hr 03/10/18 03/10/18 03/10/18 09:03 11:58 16:54 POC Glucose 280 H 211 H 190 H 03/10/18 03/11/18 19:33 08:08 POC Glucose 316 H 167 H Microbiology 03/09/18 10:48 Lumbar Puncture Gram Stain - Final 03/09/18 10:48 Lumbar Puncture CSF Culture - Preliminary No growth in 48 hours - Imaging Impressions Venous Doppler Study 03/10/18 00:00 CONCLUSION: 1. Occlusive thrombus within left cephalic vein in the region of the forearm. Assessment and Plan - Assessment (1) Stroke Code(s): I63.9 - Cerebral infarction, unspecified Status: Acute (2) Altered mental status Code(s): R41.82 - Altered mental status, unspecified Status: Acute (3) Ureterolithiasis Code(s): N20.1 - Calculus of ureter Status: Resolved Plan: Fall at home, possible syncope AMS speech disturbance - concern for CVA vs metabolic encephalopathy. Symptoms onset not known - she was found on the floor at home. Daughter reports of late there has been concern for early dementia. MRI brain reviewed and reveals: 1. No acute abnormality is seen. 2. Scattered areas of demyelination likely from small vessel ischemic change in the right. MRA neck reveals: Mild focal stenosis at the origin of the left internal carotid artery. Echo 03/01/18: The left ventricular systolic function is normal with an estimated ejection fraction in the range of 55-60%. Normal left ventricular size. Wall thickness is normal. No regional wall motion abnormalities are present. Aortic valve sclerosis is present. There is trace tricuspid valve regurgitation. The estimated pulmonary arterial pressure is 26.8 mmHg. continuous telemetry PT/OT/ST Asa 81 mg daily. consult to neurology Dr. Silva who ordered EEG, recommends consider lumbar puncture of patient's temperature elevates again with headache and other symptoms of meningitis Ureterolithiasis Urology consulted, patient seen by Dr. Varela planning possible right ureteral stent placement tomorrow, pending results of her syncope evaluation Patient does not have any pain IV fluids IV cefepime Blood cultures pending repeat CBC and BMP in AM HTN will hold home antihypertensive regiment, patient's BP has been running low asked nursing to take BPs manually Vasotec as needed DM with peripheral neuropathy hold metformin. SSI with accu checks. diabetic diet Cont Lyrica. Patient no longer has FHCP - patient transferred to [facility] service Dr. Noe Ferrer (4) DAQUAN (acute kidney injury) Code(s): N17.9 - Acute kidney failure, unspecified Status: Acute (5) Fall Code(s): W19.XXXA - Unspecified fall, initial encounter Status: Acute - Plan 72-year-old female who presented to the hospital on 02/28 after daughter found patient down on the ground with confusion at home. AMS - speech disturbance -suspected ischemic stroke. -Head CT completed on 03/01: senescent changes w/o acute intracranial abnormality -Neck MRA completed 03/01: Mild focal stenosis at the origin of the left internal carotid artery. -Head MRI 03/01: No acute abnormality, scattered areas of demyelination vessel ischemic changes in the right. -Carotid ultrasound 03/02: Less than 50% stenosis on left and right internal carotid arteries. -Head CT completed 03/02: Negative, repeat CT on 03/03-negative - Echo with EF 55-60% no wall thickness abnormality, regional wall motion abnormalities. Aortic valve stenosis, trace tricuspid valve regurgitation. - s/p TPa with improvement in speech and mental status - PT/OT/ST -Aspirin Plavix on hold for planned LP 03/09, continue statin - Hypercoagulable labs ordered by neurology - Dr. Silva following appreciate assistance -awaiting clearance from neurology for discharge to SNF. Specifically would like input as to stopping acyclovir. Also with a like to continue Keppra and/or restart Plavix -No recent changes in neurological status, speech is improved and more fluent. ? Herpes encephalitis -Discussed with Dr. Silva neurology -Fevers on admission, complaint of headache, and abnormal EEG as well as bizarre behavior suspicious for encephalitis -EEG completed 03/02 showing nonspecific left temporal region changes suspicious for epileptic activity -Patient started on Keppra IV as well as IV acyclovir -Plans for LP on Friday, if CSF negative for HSV can D/C Acyclovir; no growth in 24 hours -MRI is essentially unremarkable, MRA with noted moderate arthrosclerotic vascular disease. -Seizure precautions Ureterolithiasis. Fevers, resolved Abdomen/pelvic CT completed on 02/28: Obstructive uropathy on the right side due to 6 mm calcified stone in the proximal right ureter Urology following, appreciate assistance. -Renal ultrasound completed 03/03 shows stable mild right hydronephrosis, similar to prior CT, no mass or stone visualized. -s/p cefepime, completed 5 day course. -Voiding without any dysuria, no episode of incontinence. -Repeat renal ultrasound/ with stable mild right-sided hydronephrosis. 2.7cm cystic lesion on inferior pole of left kidney, recommend MRI with renal protocol as outpatient. Overactive bladder, chronic -Patient reports taking Myrbetriq at home. -Hold off on Myrbetriq secondary to mild right-sided hydronephrosis. Patient advised to follow-up with urology as outpatient. DAQUAN, likely secondary to above -Continue to encourage oral hydration. Diabetes mellitus with peripheral neuropathy -Continue to hold metformin -Hemoglobin A1c 6.9 -Continue cardiac and diabetic diet - Accu-checks with ISS -Continue Lyrica HTN -BP fluctuates however stable for the most part. RLS -Continue Requip Sternal tenderness -Most likely musculoskeletal in nature due to fall as this is reproducible and worse with coughing -Conservative treatment, as needed Tylenol Left cephalic thrombus -from IV; conservative management DVT prophylaxis-ambulation/SCD's Discussed Condition With: Discussed with patient and RN and Dr. Feliz. Discharge Planning: Discharge to [facility] pending LP and neuro clearance. Possibly D/C 03/11. [id number] signed.
[2018-03-12] MEDS: Sod Chloride 0.9% Inj 1,000 ML IV.CONT SCH ×2 (05:43→17:29)
[2018-03-12] MEDS: Acyclovir Inj 700 MG in Sodium Chlor 0.9% Inj 100 ML IV.SIG SCH (08:23)
[2018-03-12] MEDS: Pregabalin 25 MG Capsule PO SCH ×3 (08:24→17:36)
[2018-03-12] MEDS: levETIRAcetam 500 MG Tablet PO SCH ×2 (08:25→21:02)
[2018-03-12] MEDS: Insulin NovoLIN Regular Correctional Sugar Inj SQ SCH ×4 (08:25→21:03)
--- NOTE | 2018-03-12 11:00 | P.PN ---
Subjective Interval history: Patient is seen lying in bed. She is ready to go to rehab as soon as she is able. Denies any new concerns or complaints. No chest pain or short of breath. No dizziness or syncopal episodes no nausea vomiting or diarrhea. She is tolerating as well with normal urination and bowel movements. Physical Exam Vital signs: Vital Signs 03/11/18 12:00 03/11/18 16:00 03/11/18 19:47 Temperature 98.5 F 98.6 F Pulse Rate 88 93 H 92 H Respiratory Rate 17 18 Blood Pressure 138/71 136/74 Pulse Oximetry 97 97 03/11/18 20:00 03/12/18 00:00 03/12/18 04:00 Temperature 98.4 F 97.1 F L 98.4 F Pulse Rate 91 H 75 81 Respiratory Rate 17 17 17 Blood Pressure 136/63 138/70 142/64 H Pulse Oximetry 96 95 94 L 03/12/18 08:00 Temperature 98.0 F Pulse Rate 88 Respiratory Rate 18 Blood Pressure 138/63 Pulse Oximetry 96 Intake & Output 03/11/18 03/12/18 03/12/18 18:59 06:59 18:59 Intake Total 1214 / 1214 114 / 114 Balance 1214 / 1214 114 / 114 Intake: IV 114 / 114 114 / 114 Zovirax Inj 700 MG In NS Inj 114 / 114 114 / 114 100 ML @ 114 mls/hr IV.SIG Q12HR BEENA Rx#:[id number] Oral 1100 / 1100 Other: # Voids 4 3 Date of Last Bowel Movement 03/11/18 03/11/18 # Bowel Movements 1 Narrative: GENERAL: Well-nourished, well-developed adult female in no obvious distress. SKIN: Warm and dry. HEAD: Atraumatic. Normocephalic. CARDIOVASCULAR: Regular rate and rhythm. RESPIRATORY: No accessory muscle use. Clear to auscultation. Breath sounds equal bilaterally. GASTROINTESTINAL: Abdomen soft, non-tender, non-distended. Positive bowel sounds. MUSCULOSKELETAL: Extremities without clubbing, cyanosis, or edema. No obvious deformities. Hardened area palpable on left wrist distal to prior IV insertion site. No swelling in the extremity. Fingers well-perfused with normal strength and motion. NEUROLOGICAL: Awake and alert. No obvious cranial nerve deficits. Motor grossly within normal limits. Normal speech. PSYCHIATRIC: Appropriate mood and affect; insight and judgment good. - Urinary Catheter Management Indwelling Urethral Catheter Cath placed during this visit: yes, but has since been removed by the nurse Reason for continuing: Decision to DC catheter Insertion date: 03/01/18 Removal date: 03/02/18 Removal time: 19:00 Results - Labs CBC & Chem 7: 03/07/18 04:58 03/07/18 04:58 Laboratory Results - last 24 hr 03/11/18 03/11/18 03/11/18 11:38 17:36 20:40 POC Glucose 216 H 322 H 307 H 03/12/18 07:31 POC Glucose 189 H Microbiology 03/09/18 10:48 Lumbar Puncture Gram Stain - Final 03/09/18 10:48 Lumbar Puncture CSF Culture - Final No growth in 72 hours Assessment and Plan - Assessment (1) Stroke Code(s): I63.9 - Cerebral infarction, unspecified Status: Acute (2) Altered mental status Code(s): R41.82 - Altered mental status, unspecified Status: Acute (3) Ureterolithiasis Code(s): N20.1 - Calculus of ureter Status: Resolved (4) DAQUAN (acute kidney injury) Code(s): N17.9 - Acute kidney failure, unspecified Status: Acute (5) Fall Code(s): W19.XXXA - Unspecified fall, initial encounter Status: Acute - Plan 72-year-old female who presented to the hospital on 02/28 after daughter found patient down on the ground with confusion at home. AMS - speech disturbance -suspected ischemic stroke. -Head CT completed on 03/01: senescent changes w/o acute intracranial abnormality -Neck MRA completed 03/01: Mild focal stenosis at the origin of the left internal carotid artery. -Head MRI 03/01: No acute abnormality, scattered areas of demyelination vessel ischemic changes in the right. -Carotid ultrasound 03/02: Less than 50% stenosis on left and right internal carotid arteries. -Head CT completed 03/02: Negative, repeat CT on 03/03-negative - Echo with EF 55-60% no wall thickness abnormality, regional wall motion abnormalities. Aortic valve stenosis, trace tricuspid valve regurgitation. - s/p TPa with improvement in speech and mental status - PT/OT/ST -Aspirin Plavix on hold for planned LP 03/09, continue statin - Hypercoagulable labs ordered by neurology - Dr. Silva following appreciate assistance -awaiting clearance from neurology for discharge to SNF. Specifically would like input as to stopping acyclovir. Neurology has requested that Keppra be continued and patient be started on ASA 25 mg daily for anticoagulation -added MAR. -No recent changes in neurological status, speech is improved and more fluent. ? Herpes encephalitis -Discussed with Dr. Silva neurology -Fevers on admission, complaint of headache, and abnormal EEG as well as bizarre behavior suspicious for encephalitis -EEG completed 03/02 showing nonspecific left temporal region changes suspicious for epileptic activity -Patient started on Keppra IV as well as IV acyclovir -Plans for LP on Friday, if CSF negative for HSV can D/C Acyclovir; no growth in 24 hours -MRI is essentially unremarkable, MRA with noted moderate arthrosclerotic vascular disease. -Seizure precautions Ureterolithiasis. Fevers, resolved Abdomen/pelvic CT completed on 02/28: Obstructive uropathy on the right side due to 6 mm calcified stone in the proximal right ureter Urology following, appreciate assistance. -Renal ultrasound completed 03/03 shows stable mild right hydronephrosis, similar to prior CT, no mass or stone visualized. -s/p cefepime, completed 5 day course. -Voiding without any dysuria, no episode of incontinence. -Repeat renal ultrasound/ with stable mild right-sided hydronephrosis. 2.7cm cystic lesion on inferior pole of left kidney, recommend MRI with renal protocol as outpatient. Overactive bladder, chronic -Patient reports taking Myrbetriq at home. -Hold off on Myrbetriq secondary to mild right-sided hydronephrosis. Patient advised to follow-up with urology as outpatient. DAQUAN, likely secondary to above -Continue to encourage oral hydration. Diabetes mellitus with peripheral neuropathy -Continue to hold metformin -Hemoglobin A1c 6.9 -Continue cardiac and diabetic diet - Accu-checks with ISS -Continue Lyrica HTN -BP fluctuates however stable for the most part. RLS -Continue Requip Sternal tenderness -Most likely musculoskeletal in nature due to fall as this is reproducible and worse with coughing -Conservative treatment, as needed Tylenol Left cephalic thrombus; nonoccluding -from IV; conservative management DVT prophylaxis-ambulation/SCD's Discussed Condition With: Discussed with patient and RN and Dr. Feliz. Discharge Planning: Discharge to [facility] pending neuro clearance. Possibly D/C 03/12. [id number] signed.
[2018-03-12] MEDS: Aspirin 325 MG Tablet PO SCH (12:57)
--- NOTE | 2018-03-12 23:43 | CT ---
EXAM DATE: 03/12/2018 11:37 PM EDT AGE/SEX: 72 years / Female INDICATIONS: Fall, hit side of head. CLINICAL DATA: This is the patient's initial encounter. Patient reports that signs and symptoms have been present for 1 day and indicates a pain score of 2/10. MEDICAL/SURGICAL HISTORY: Transient ischemic attack. None. RADIATION DOSE: 56.35 CTDI (mGy) [place] [facility] [place]. . TECHNIQUE: CT of the head without contrast. Using automated exposure control and adjustment of the mA and/or kV according to patient size, radiation dose was kept as low as reasonably achievable to ob tain optimal diagnostic quality images. DICOM format image data is available electronically for revi ew and comparison. FINDINGS: Cerebrum: Atrophy. The ventricles are normal for age. No evidence of midline shift, mass lesion, he morrhage or acute infarction. No extraaxial fluid collections are seen. Posterior Fossa: The cerebellum and brainstem are intact. The 4th ventricle is midline. The cerebe llopontine angle is unremarkable. Extracranial: The visualized portion of the orbits is intact. Skull: The calvaria is intact. No evidence of skull fracture. CONCLUSION: 1. No acute intracranial abnormality. . Electronically signed by: Nelson Reddy MD 03/12/2018 11:42 PM EDT
[2018-03-13] MEDS: Sod Chloride 0.9% Inj 1,000 ML IV.CONT SCH ×3 (00:31→20:59)
[2018-03-13] MEDS: Insulin NovoLIN Regular Correctional Sugar Inj SQ SCH ×4 (08:53→20:57)
[2018-03-13] MEDS: Pregabalin 25 MG Capsule PO SCH ×4 (08:54→17:06)
[2018-03-13] MEDS: Aspirin 325 MG Tablet PO SCH (08:54)
[2018-03-13] MEDS: levETIRAcetam 500 MG Tablet PO SCH ×2 (08:54→20:56)
[2018-03-13 10:13] LABS: Baso # (Auto) 0.1 th/mm3 (0.0-0.2); Baso % (Auto) 0.7 % (0.0-2.0); Eos # (Auto) 0.1 th/mm3 (0.0-0.4); Eos % (Auto) 0.8 % (0.0-4.0); Hematocrit 36.4 % (35.0-46.0); Hemoglobin 12.3 gm/dL (11.6-15.3); Lymph # (Auto) 1.5 th/mm3 (1.0-4.8); Lymph % (Auto) 11.4 % (9.0-44.0); Mean Corpuscular HGB Conc 33.9 % (32.0-36.0); Mean Corpuscular Hemoglobin 30.8 pg (27.0-34.0); Mean Corpuscular Volume 90.9 fL (80.0-100.0); Mean Platelet Volume 8.1 fL (7.0-11.0); Mono # (Auto) 0.6 th/mm3 (0.0-0.9); Mono % (Auto) 4.6 % (0.0-8.0); Neut # (Auto) 10.7 th/mm3 (1.8-7.7); Neut % (Auto) 82.5 % (16.0-70.0); Platelet Count 332 th/mm3 (150-450); White Blood Count 12.9 th/mm3 (4.0-11.0)
[2018-03-13 10:40] LABS: Albumin 3.2 g/dL (3.4-5.0); Anion Gap 11 meq/L (5-15); Blood Urea Nitrogen 13 mg/dL (7-18); Calcium 9.2 mg/dL (8.5-10.1); Carbon Dioxide 27.3 meq/L (21.0-32.0); Chloride 96 meq/L (98-107); Glomerular Filtration Rate 40 mL/min (>89); Potassium 4.5 meq/L (3.5-5.1); Sodium 134 meq/L (136-145)
[2018-03-13 11:02] LABS: Alanine Aminotransferase 32 U/L (10-53); Alkaline Phosphatase 97 U/L (45-117); Aspartate Aminotransferase 22 U/L (15-37); Glucose,Random 289 mg/dL (74-106); Total Protein 8.9 g/dL (6.4-8.2)
[2018-03-13 17:02] LABS: Bilirubin,Urine Negative (Negative); Clarity,Urine Clear (Clear); Color,Urine Yellow (Yellw/Straw); Glucose,Urine (UA) 50 mg/dL (Negative); Leukocyte Esterase,Urine Negative (Negative); Nitrite,Urine Negative (Negative); Specific Gravity,Urine 1.008 (1.002-1.035)
--- NOTE | 2018-03-13 17:43 | P.PN ---
Subjective Interval history: Patient is seen sitting in room. She states that she had a fall last night while walking to the bathroom. Does not recall why she fell. Not particularly dizzy. Denies hitting her head. Does not have any headache or dizziness at this time. No chest pain or shortness of breath. No nausea vomiting or diarrhea.. No fever chills. Physical Exam Vital signs: Vital Signs 03/12/18 19:58 03/12/18 20:00 03/12/18 20:56 Temperature 98.3 F Pulse Rate 75 117 H Respiratory Rate 18 18 Blood Pressure 130/67 Pulse Oximetry 96 03/12/18 23:05 03/12/18 23:59 03/13/18 00:00 Temperature 97.7 F 98.5 F Pulse Rate 79 79 88 Respiratory Rate 17 18 Blood Pressure 151/67 H 152/72 H Pulse Oximetry 97 97 03/13/18 00:05 03/13/18 01:05 03/13/18 01:37 Temperature 98.5 F 99 F Pulse Rate 88 77 Respiratory Rate 18 17 18 Blood Pressure 152/72 H 149/65 H Pulse Oximetry 97 94 L 03/13/18 02:05 03/13/18 03:05 03/13/18 04:00 Temperature 98.1 F 98.3 F 97.3 F L Pulse Rate 77 78 80 Respiratory Rate 17 17 18 Blood Pressure 160/69 H 148/64 H 142/67 H Pulse Oximetry 96 03/13/18 04:08 03/13/18 07:05 03/13/18 07:57 Temperature 98.3 F Pulse Rate 78 74 78 Respiratory Rate 18 18 Blood Pressure 114/69 Pulse Oximetry 97 03/13/18 08:00 03/13/18 11:05 03/13/18 12:00 Temperature 97.9 F 98.3 F 97.7 F Pulse Rate 85 87 70 Respiratory Rate 18 16 18 Blood Pressure 127/62 126/76 137/65 Pulse Oximetry 96 95 03/13/18 15:05 03/13/18 16:00 Temperature 97.9 F 97.9 F Pulse Rate 89 74 Respiratory Rate 16 18 Blood Pressure 130/80 138/69 Pulse Oximetry 95 95 Intake & Output 03/12/18 03/13/18 03/13/18 18:59 06:59 18:59 Intake Total 1200 / 1200 Balance 1200 / 1200 Intake: Oral 1200 / 1200 Other: # Voids 4 9 Date of Last Bowel Movement 03/12/18 03/12/18 Narrative: GENERAL: Well-nourished, well-developed adult female in no obvious distress. SKIN: Warm and dry. HEAD: Atraumatic. Normocephalic. CARDIOVASCULAR: Regular rate and rhythm. RESPIRATORY: No accessory muscle use. Clear to auscultation. Breath sounds equal bilaterally. GASTROINTESTINAL: Abdomen soft, non-tender, non-distended. Positive bowel sounds. MUSCULOSKELETAL: Extremities without clubbing, cyanosis, or edema. No obvious deformities. Hardened area palpable on left wrist distal to prior IV insertion site. No swelling in the extremity. Fingers well-perfused with normal strength and motion. NEUROLOGICAL: Awake and alert. No obvious cranial nerve deficits. Motor grossly within normal limits. Normal speech. PSYCHIATRIC: Appropriate mood and affect; insight and judgment good. - Urinary Catheter Management Indwelling Urethral Catheter Cath placed during this visit: yes, but has since been removed by the nurse Reason for continuing: Decision to DC catheter Insertion date: 03/01/18 Removal date: 03/02/18 Removal time: 19:00 Results - Labs CBC & Chem 7: 03/13/18 08:52 03/13/18 08:52 Laboratory Results - last 24 hr 03/12/18 03/13/18 03/13/18 20:55 08:46 08:52 WBC 12.9 H RBC 4.00 Hgb 12.3 Hct 36.4 MCV 90.9 MCH 30.8 MCHC 33.9 RDW 14.0 Plt Count 332 MPV 8.1 Neut % (Auto) 82.5 H Lymph % (Auto) 11.4 Brown % (Auto) 4.6 Eos % (Auto) 0.8 Baso % (Auto) 0.7 Neut # (Auto) 10.7 H Lymph # (Auto) 1.5 Brown # (Auto) 0.6 Eos # (Auto) 0.1 Baso # (Auto) 0.1 WBC Differential . Differential Comment Auto diff final Sodium Potassium Chloride Carbon Dioxide Anion Gap BUN Creatinine Estimated GFR POC Glucose 255 H 352 H Random Glucose Calcium Total Bilirubin AST ALT Alkaline Phosphatase Total Protein Albumin Urine Color Urine Clarity Urine pH Ur Specific [place] Urine Protein Urine Glucose (UA) Urine Ketones Urine Occult Blood Urine Nitrate Urine Bilirubin Urine Urobilinogen Ur Leukocyte Esterase Urine RBC Urine WBC Micro UA Comment Ur Microscopic Review Urine Culture Comments 03/13/18 03/13/18 03/13/18 08:52 11:46 12:40 WBC RBC Hgb Hct MCV MCH MCHC RDW Plt Count MPV Neut % (Auto) Lymph % (Auto) Brown % (Auto) Eos % (Auto) Baso % (Auto) Neut # (Auto) Lymph # (Auto) Brown # (Auto) Eos # (Auto) Baso # (Auto) WBC Differential Differential Comment Sodium 134 L Potassium 4.5 Chloride 96 L Carbon Dioxide 27.3 Anion Gap 11 BUN 13 Creatinine 1.32 H Estimated GFR 40 L POC Glucose 212 H Random Glucose 289 H Calcium 9.2 Total Bilirubin 0.5 AST 22 ALT 32 Alkaline Phosphatase 97 Total Protein 8.9 H Albumin 3.2 L Urine Color Yellow Urine Clarity Clear Urine pH 6.0 Ur Specific [place] 1.008 Urine Protein Negative Urine Glucose (UA) 50 Urine Ketones Negative Urine Occult Blood Small H Urine Nitrate Negative Urine Bilirubin Negative Urine Urobilinogen Less than 2 Ur Leukocyte Esterase Negative Urine RBC Less than 1 Urine WBC 1 Micro UA Comment Culture not ind Ur Microscopic Review Not Reportable Urine Culture Comments Culture not ind 03/13/18 16:11 WBC RBC Hgb Hct MCV MCH MCHC RDW Plt Count MPV Neut % (Auto) Lymph % (Auto) Brown % (Auto) Eos % (Auto) Baso % (Auto) Neut # (Auto) Lymph # (Auto) Brown # (Auto) Eos # (Auto) Baso # (Auto) WBC Differential Differential Comment Sodium Potassium Chloride Carbon Dioxide Anion Gap BUN Creatinine Estimated GFR POC Glucose 192 H Random Glucose Calcium Total Bilirubin AST ALT Alkaline Phosphatase Total Protein Albumin Urine Color Urine Clarity Urine pH Ur Specific [place] Urine Protein Urine Glucose (UA) Urine Ketones Urine Occult Blood Urine Nitrate Urine Bilirubin Urine Urobilinogen Ur Leukocyte Esterase Urine RBC Urine WBC Micro UA Comment Ur Microscopic Review Urine Culture Comments - Imaging Impressions Head CT 03/12/18 23:11 CONCLUSION: 1. No acute intracranial abnormality. . Assessment and Plan - Assessment (1) Stroke Code(s): I63.9 - Cerebral infarction, unspecified Status: Acute (2) Altered mental status Code(s): R41.82 - Altered mental status, unspecified Status: Acute (3) Ureterolithiasis Code(s): N20.1 - Calculus of ureter Status: Resolved (4) DAQUAN (acute kidney injury) Code(s): N17.9 - Acute kidney failure, unspecified Status: Acute (5) Fall Code(s): W19.XXXA - Unspecified fall, initial encounter Status: Acute - Plan 72-year-old female who presented to the hospital on 02/28 after daughter found patient down on the ground with confusion at home. AMS - speech disturbance -suspected ischemic stroke. -Head CT completed on 03/01: senescent changes w/o acute intracranial abnormality -Neck MRA completed 03/01: Mild focal stenosis at the origin of the left internal carotid artery. -Head MRI 03/01: No acute abnormality, scattered areas of demyelination vessel ischemic changes in the right. -Carotid ultrasound 03/02: Less than 50% stenosis on left and right internal carotid arteries. -Head CT completed 03/02: Negative, repeat CT on 03/03-negative - Echo with EF 55-60% no wall thickness abnormality, regional wall motion abnormalities. Aortic valve stenosis, trace tricuspid valve regurgitation. - s/p TPa with improvement in speech and mental status - PT/OT/ST -Aspirin Plavix on hold for planned LP 03/09, continue statin - Hypercoagulable labs ordered by neurology - Dr. Silva following appreciate assistance -cleared by neurology for discharge to SNF. Neurology has requested that Keppra be continued and patient be started on ASA 25 mg daily for anticoagulation -added to MAR. -No recent changes in neurological status, speech is improved and more fluent. -Patient had fall while walking to the bathroom on 03/13. CT was negative for acute process. Repeat labs indicated mild elevation of WBCs at 12.9. Otherwise grossly normal. Will evaluate for UTI. ? Herpes encephalitis -Discussed with Dr. Silva neurology -Fevers on admission, complaint of headache, and abnormal EEG as well as bizarre behavior suspicious for encephalitis -EEG completed 03/02 showing nonspecific left temporal region changes suspicious for epileptic activity -Patient started on Keppra IV as well as IV acyclovir -Plans for LP on Friday, if CSF negative for HSV can D/C Acyclovir; no growth in 24 hours. CSF not evaluated for at HSV -Dr. Silva ordered acyclovir DC'd. -MRI is essentially unremarkable, MRA with noted moderate arthrosclerotic vascular disease. -Seizure precautions Ureterolithiasis. Fevers, resolved Abdomen/pelvic CT completed on 02/28: Obstructive uropathy on the right side due to 6 mm calcified stone in the proximal right ureter Urology following, appreciate assistance. -Renal ultrasound completed 03/03 shows stable mild right hydronephrosis, similar to prior CT, no mass or stone visualized. -s/p cefepime, completed 5 day course. -Voiding without any dysuria, no episode of incontinence. -Repeat renal ultrasound/ with stable mild right-sided hydronephrosis. 2.7cm cystic lesion on inferior pole of left kidney, recommend MRI with renal protocol as outpatient. Overactive bladder, chronic -Patient reports taking Myrbetriq at home. -Hold off on Myrbetriq secondary to mild right-sided hydronephrosis. Patient advised to follow-up with urology as outpatient. DAQUAN, likely secondary to above -Continue to encourage oral hydration. Diabetes mellitus with peripheral neuropathy -Continue to hold metformin -Hemoglobin A1c 6.9 -Continue cardiac and diabetic diet - Accu-checks with ISS -Continue Lyrica HTN -BP fluctuates however stable for the most part. RLS -Continue Requip Sternal tenderness -Most likely musculoskeletal in nature due to fall as this is reproducible and worse with coughing -Conservative treatment, as needed Tylenol Left cephalic thrombus; nonoccluding -from IV; conservative management DVT prophylaxis-ambulation/SCD's Discussed Condition With: Discussed with patient and RN and Dr. Ferrer. Discharge Planning: Discharge to [facility]. [id number] signed.
[2018-03-14 07:41] LABS: Baso # (Auto) 0.1 th/mm3 (0.0-0.2); Eos # (Auto) 0.2 th/mm3 (0.0-0.4); Eos % (Auto) 1.4 % (0.0-4.0); Hematocrit 37.1 % (35.0-46.0); Lymph # (Auto) 2.4 th/mm3 (1.0-4.8); Lymph % (Auto) 18.8 % (9.0-44.0); Mean Corpuscular HGB Conc 32.3 % (32.0-36.0); Mean Corpuscular Hemoglobin 30.5 pg (27.0-34.0); Mean Corpuscular Volume 94.5 fL (80.0-100.0); Mono # (Auto) 1.2 th/mm3 (0.0-0.9); Mono % (Auto) 9.6 % (0.0-8.0); Neut # (Auto) 8.7 th/mm3 (1.8-7.7); Neut % (Auto) 69.2 % (16.0-70.0); Platelet Count 250 th/mm3 (150-450); Red Blood Count 3.92 mil/mm3 (4.00-5.30); Red Cell Distribution Width 14.4 % (11.6-17.2); White Blood Count 12.6 th/mm3 (4.0-11.0)
[2018-03-14] MEDS: Insulin NovoLIN Regular Correctional Sugar Inj SQ SCH ×2 (09:35→12:19)
[2018-03-14] MEDS: Pregabalin 25 MG Capsule PO SCH (09:37)
[2018-03-14] MEDS: levETIRAcetam 500 MG Tablet PO SCH (09:37)
[2018-03-14] MEDS: Aspirin 325 MG Tablet PO SCH (09:38)
[2018-03-14] MEDS: Sod Chloride 0.9% Inj 1,000 ML IV.CONT SCH (10:21)
--- NOTE | 2018-03-14 11:10 | P.DS ---
Date of admission: 02/28/18 21:47 Primary care physician: UNKNOWN Attending physician on discharge: Jean-Paul Ferrer Anticipated date of discharge: 03/14/18 Brief History from admission: This is a pleasant 72 yo female who presented to the ER tonjanice after her daughter found her on the groun in the hallway of her home. History was obtained from pt's daughter at bedside and from the ER physician. The patient is somewhat confused and unable to provide history. Patient was last seen normal yesterday by her daughter. At her baseline state she ambulates independently, with unsteady gait, and is normally alert and oriented, though of late has shown some signs of memory issues/possible early dementia. When daughter arrived to the house this evening around 6:30 p.m she found her laying in the hallway. She reports her speech was somewhat thick/abnormal, which she attributed to a dry mouth. Patient was confused and unable to report how she had fallen. In the ER she initially had fever of 102, however stable blood pressure. CBC unremarkable, BMP showing Cr 1.4. Head CT was negative. Abdominal CT did show 6 mm right proximal ureter stone with obstructive uropathy. EKG showed sinus rhtyhm rate 101, borderline r BBB, no ischemic changes. Troponin I negative. Patient denies any pain. While in the ER pietro reports she has gotten increasingly confused, and that her speech has gotten more abnormal, and that she seems to be having difficulty finding words. NIH stroke scale was 10. A stat MRI brain and MRA neck has been ordered. DS: Diagnosis - Discharge Diagnosis (1) Stroke Status: Resolved (2) Altered mental status Status: Resolved (3) Ureterolithiasis Status: Resolved (4) DAQUAN (acute kidney injury) Status: Resolved (5) Fall Status: Resolved DS: Medications - Discharge Medications Prescriptions: hydrocodone-acetaminophen 1 tab PO Q6H PRN #12 tab PRN Reason: Acute Pain pregabalin [Lyrica] 25 mg PO TID #15 cap DS: Summary Hospital Course: 72-year-old female who presented to the hospital on 02/28 after daughter found patient down on the ground with confusion at home. AMS - speech disturbance -suspected ischemic stroke. -Head CT completed on 03/01: senescent changes w/o acute intracranial abnormality -Neck MRA completed 03/01: Mild focal stenosis at the origin of the left internal carotid artery. -Head MRI 03/01: No acute abnormality, scattered areas of demyelination vessel ischemic changes in the right. -Carotid ultrasound 03/02: Less than 50% stenosis on left and right internal carotid arteries. -Head CT completed 03/02: Negative, repeat CT on 03/03-negative - Echo with EF 55-60% no wall thickness abnormality, regional wall motion abnormalities. Aortic valve stenosis, trace tricuspid valve regurgitation. - s/p TPa with improvement in speech and mental status; stroke symptoms resolved after TPA - Dr. Silva following appreciate assistance -cleared by neurology for discharge to SNF. Neurology has requested that Keppra be continued and patient be started on ASA 25 mg daily for anticoagulation. -Patient had fall while walking to the bathroom on 03/13. CT was negative for acute process. Repeat labs indicated mild elevation of WBCs at 12.9. Otherwise grossly normal. 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 Silva neurology -Fevers on admission, complaint of headache, and abnormal EEG as well as bizarre behavior suspicious for encephalitis -EEG completed 03/02 showing nonspecific left temporal region changes suspicious for epileptic activity -Patient started on Keppra IV as well as IV acyclovir. -LP negative. CSF not evaluated for at [facility] -Dr. Silva ordered acyclovir DC'd. -MRI is essentially unremarkable, MRA with noted moderate arthrosclerotic vascular disease. Ureterolithiasis. Fevers, resolved Abdomen/pelvic CT completed on 02/28: Obstructive uropathy on the right side due to 6 mm calcified stone in the proximal right ureter Urology following, appreciate assistance. -Renal ultrasound completed 03/03 shows stable mild right hydronephrosis, similar to prior CT, no mass or stone visualized. -s/p cefepime, completed 5 day course. -Voiding without any dysuria, no episode of incontinence. -Repeat renal ultrasound/ with stable mild right-sided hydronephrosis. 2.7cm cystic lesion on inferior pole of left kidney, recommend MRI with renal protocol as outpatient. Left cephalic thrombus; nonoccluding -from IV; conservative management - Time Spent with Patient Total time spent providing and/or coordinating discharge services: Less than 30 minutes - Quality: VTE Deep Vein Thrombosis/Pulmonary Embolism Present on Admission: No Exam Vital signs: Vital Signs 03/13/18 12:00 03/13/18 15:05 03/13/18 16:00 Temperature 97.7 F 97.9 F 97.9 F Pulse Rate 70 89 74 Respiratory Rate 18 16 18 Blood Pressure 137/65 130/80 138/69 Pulse Oximetry 95 95 95 03/13/18 19:02 03/13/18 19:13 03/13/18 19:25 Temperature 98.1 F 97.4 F L Pulse Rate 96 H 72 Respiratory Rate 18 16 18 Blood Pressure 135/63 121/74 Pulse Oximetry 96 95 03/13/18 21:24 03/13/18 23:05 03/13/18 23:22 Temperature 97.4 F L 97.4 F L Pulse Rate 74 69 69 Respiratory Rate 17 17 Blood Pressure 141/66 H 141/66 H Pulse Oximetry 92 L 03/13/18 23:49 03/14/18 01:36 03/14/18 03:05 Temperature 98.0 F Pulse Rate 69 76 Respiratory Rate 16 18 Blood Pressure 138/65 Pulse Oximetry 93 L 03/14/18 04:41 03/14/18 08:00 03/14/18 10:15 Temperature 98.1 F Pulse Rate 68 Respiratory Rate 18 16 18 Blood Pressure 133/61 Pulse Oximetry 97 Intake & Output 03/13/18 03/14/18 03/14/18 18:59 06:59 18:59 Intake Total 240 / 240 360 / 360 Balance 240 / 240 360 / 360 Weight 56.9 kg Intake: Oral 240 / 240 360 / 360 Other: # Voids 3 4 Date of Last Bowel Movement 03/12/18 03/12/18 # Bowel Movements 0 Results Procedures completed during hospitalization: Lumbar puncture - 03/09/18 Labs on day of discharge: Labs from last 24 hours 03/14/18 03/14/18 03/13/18 07:49 06:30 19:52 WBC 12.6 H RBC 3.92 L Hgb 12.0 Hct 37.1 MCV 94.5 D MCH 30.5 MCHC 32.3 RDW 14.4 Plt Count 250 MPV 8.0 Prelim Diff (Auto) Neut % (Auto) 69.2 Lymph % (Auto) 18.8 [place] % (Auto) 9.6 H Eos % (Auto) 1.4 Baso % (Auto) 1.0 Neut # (Auto) 8.7 H Lymph # (Auto) 2.4 [place] # (Auto) 1.2 H Eos # (Auto) 0.2 Baso # (Auto) 0.1 WBC Differential . Differential Comment Auto diff final POC Glucose 155 H 400 H Urine Color Urine Clarity Urine pH Ur Specific [place] Urine Protein Urine Glucose (UA) Urine Ketones Urine Occult Blood Urine Nitrate Urine Bilirubin Urine Urobilinogen Ur Leukocyte Esterase Urine RBC Urine WBC Micro UA Comment Ur Microscopic Review Urine Culture Comments 03/13/18 03/13/18 03/13/18 16:11 12:40 11:46 WBC RBC Hgb Hct MCV MCH MCHC RDW Plt Count MPV Prelim Diff (Auto) Neut % (Auto) Lymph % (Auto) [place] % (Auto) Eos % (Auto) Baso % (Auto) Neut # (Auto) Lymph # (Auto) [place] # (Auto) Eos # (Auto) Baso # (Auto) WBC Differential Differential Comment POC Glucose 192 H 212 H Urine Color Yellow Urine Clarity Clear Urine pH 6.0 Ur Specific [place] 1.008 Urine Protein Negative Urine Glucose (UA) 50 Urine Ketones Negative Urine Occult Blood Small H Urine Nitrate Negative Urine Bilirubin Negative Urine Urobilinogen Less than 2 Ur Leukocyte Esterase Negative Urine RBC Less than 1 Urine WBC 1 Micro UA Comment Culture not ind Ur Microscopic Review Not Reportable Urine Culture Comments Culture not ind - Impressions ITS Impressions Chest X-Ray 02/28/18 19:20 CONCLUSION: Lungs are clear. Abdomen/Pelvis CT 02/28/18 19:21 CONCLUSION: 1. Obstructive uropathy on the right side due to a 6 mm calcified stone in the proximal right ureter. Cervical Spine CT 02/28/18 21:00 CONCLUSION: 1. No acute bony abnormalities seen. 2. Nors-rd-sfsoytzi disc bulge and osteophytic ridging at the C4-C5 level. 3. Mild central disc protrusion at the C6-C7 level. 4. Scattered facet and uncovertebral hypertrophy. Neck MRA 03/01/18 00:00 CONCLUSION: Mild focal stenosis at the origin of the left internal carotid artery. Percent stenosis is calculated using the diameter of the stenotic region over the diameter of the normal distal internal carotid artery Carotid Doppler Study 03/02/18 00:00 CONCLUSION: Right Internal Carotid Artery: No evidence of hemodynamically significant lesion with less than 50% stenosis. Left Internal Carotid Artery: No evidence of hemodynamically significant lesion with less than 50% stenosis. Head MRI 03/04/18 00:00 CONCLUSION: 1. No acute intracranial abnormality is identified. There are no findings to indicate recent ischemia. 2. Chronic findings include mild generalized cerebral atrophy and mild periventricular and subcortical chronic white matter changes characteristic of chronic microvascular ischemia. Head MRA 03/04/18 00:00 CONCLUSION: 1. Moderate atherosclerotic vascular disease. Abdomen/Bladder Ultrasound 03/08/18 00:00 CONCLUSION: 1. Stable mild right-sided hydronephrosis. This is presumably residual hydronephrosis from patient's previously diagnosed proximal right ureteral calculus. 2. Stable 2.7 cm cystic lesion in the inferior pole of the left kidney. Again, this is somewhat complex. MRI examination with renal protocol may be performed on an outpatient basis for better characterization. Venous Doppler Study 03/10/18 00:00 CONCLUSION: 1. Occlusive thrombus within left cephalic vein in the region of the forearm. Head CT 03/12/18 23:11 CONCLUSION: 1. No acute intracranial abnormality. . Discharge Plan - Discharge Disposition Patient Disposition: 03 Discharge to SNF - Discharge Condition Condition: Stable - Discharge Order Discharge Orders: Discharge Order (Routine); Ordered 03/11/18 Ordered By: Melodie Smith - Discharge Details Anticipated Discharge Date: 03/11/18 Discharge Comment: Needs clearance from neuro - do they wish to continue acyclovir and keppra? or restart plavix? - Physicians Team Primary Care Provider: UNKNOWN, Attending Provider: Jean-Paul Ferrer Other Providers: Erick Silva MD, PhD ; Jean-Paul Varela MD ; Max Perry MD ; [facility],Agency ; [facility],Agency ; [facility]
--- NOTE | 2018-03-23 09:28 | IR ---
EXAM DATE: 03/09/2018 11:14 AM EDT AGE/SEX: 72 years / Female INDICATIONS: Patient presents with weakness and altered mental status in need of lumbar puncture. CLINICAL DATA: This is the patient's initial encounter. Patient reports that signs and symptoms have been present for 4 - 6 days and indicates a pain score of 0/10. MEDICAL/SURGICAL HISTORY: Deep venous thrombosis. Hypertension. None. COMPARISON: No prior exams available for comparison. FLUORO TIME (min): 1.1 IMAGE SERIES: 1 ACCESS SITE: L4-5 LUMBAR PUNCTURE TIME: 10:48 hours FLUID: Total volume of 19 cc of clear fluid was removed. Fluid was sent to lab for ordered studies. MEDICATION(S): 8cc Lidocaine ; PROCEDURE: 1. Fluoroscopic guided lumbar puncture. The risks, benefits and alternatives to the procedure were explained and verbal and written consent w as obtained. The site was prepped in sterile fashion. Full sterile technique was used, including ca p, mask, sterile gloves and gown and a large sterile sheet. Hand hygiene and 2% chlorhexidine and/or betadine/alcohol prep was utilized per protocol for cutaneous antisepsis. The skin and subcutaneous tissues were infiltrated with local anesthetic solution. With fluoroscopic guidance the lumbar thecal sac was punctured at the level above. The fluid describ ed above was removed without difficulty. The patient tolerated the procedure well and there were no complications. CONCLUSION: 1. Uncomplicated fluoroscopically guided lumbar puncture. Electronically signed by: Rico Salazar MD 03/23/2018 9:27 AM EDT
== END 2018-03-14 12:30 ==
LOC: NEPE 18:03 → NEDA 21:47 → NEPFCDU 03-01 01:35 → HCIS 03-01 16:26 → N03 03-01 17:39 → N06 03-03 00:01
PROVIDERS: ADMIT Family Medicine; ATTEND Family Medicine